=== PATIENT | female | born 1960 | race Caucasian/White ===

== ENCOUNTER → 2018-08-31 10:17 | Outpatient (CLI) | payer OTHER, SELFPAY ==
[2018-08-31 12:30] LABS: Vitamin D,25 Hydroxy 27.9 ng/mL (29.95-100.01)
[2018-08-31 12:37] LABS: Anion Gap 8 (5-15); BUN 11 mg/dL (7-18); BUN/Creat Ratio 12.4 RATIO (10-20); Calcium,Total 9.3 mg/dL (8.5-10.1); Chloride 109 mmol/L (98-107); Cholesterol 201 mg/dL (200); Creatinine, Serum 0.89 mg/dL (0.55-1.02); EST Glomerular Filtration Rate 70 mL/min (>60); Est Glom Filt Rate - Afr Amer 84 mL/min (>60); Glucose 97 mg/dL (74-106); High Density Lipoprotein 52 mg/dL; Potassium 3.9 mmol/L (3.5-5.1); Sodium Level 145 mmol/L (136-145); Triglycerides 175 mg/dL; Very Low Density Lipoprotein 35 mg/dL (5-40)
--- OUTSIDE RECORDS SUMMARY | 2018-10-26 12:07 | XMS RPT_ITS ---
:1960 Author Organization OHIP Care Team Providers Name Role Phone Kevin Vo Attending Unavailable Kevin Vo Primary Care Unavailable PROBLEMS PROBLEMS DATE TYPE CONDITION / CODE ATTENDING STATUS SOURCE 08/31/2018 Unknown Z00.00 - Kevin Vo Active [place] Encounter for [facility] medical Repository examination without abnormal findings / Z00.00(ICD-10) PROCEDURES PROCEDURES No Procedure Records FoundRESULTS RESULTS VITAMIN D,25 HYDROXY Collected: 08/31/2018 Status: F Source: [place] 10:18 AM [facility] REPOSITORY TYPE CODE TESTS RESULT OUT OF REFERENCE UNITS RANGE LAB L506.1000 29.95-100.01 ng/mL Low Vitamin D 27.9 25-OH Result Comment: Vitamin D 25(OH) Status Range Deficiency <20 ng/mL (50nmol/L) Insuffciency 20 - 30 ng/mL (50 - 75 nmol/L) Sufficiency 30 - 100 ng/mL (75 - 250 nmol/L) Toxicity >100 ng/mL (>250 nmol/L) Performed By: #### L506.1000 #### [facility] [place], [address] BASIC METABOLIC Collected: 08/31/2018 Status: F Source: [place] PROFILE (BMP) 10:18 AM [facility] REPOSITORY TYPE CODE TESTS RESULT OUT OF RANGE REFERENCE UNITS LAB L501.0100 74-106 mg/dL Normal GLU 97 Result Comment: Please note revised GLUCOSE reference range effective 2017. LAB L501.1000 7-18 mg/dL Normal BUN 11 LAB L501.1100 0.55-1.02 mg/dL Normal CREAT,SERUM 0.89 Result Comment: The validity of the calculated GFR AND GFRAA in patients over 70 years has not been determined. Clinical correlation is essential. LAB L501.1110 >60 mL/min Normal EST GFR 70 Result Comment: Non- GFR Calc LAB L501.1115 >60 mL/min Normal EST GFR - AA 84 Result Comment: GFR Calc LAB L501.1300 10-20 RATIO Normal BUN/CRE 12.4 LAB L501.2200 8.5-10.1 mg/dL CA Normal 9.3 LAB L501.5300 136-145 mmol/L NA Normal 145 LAB L501.5600 3.5-5.1 mmol/L K Normal 3.9 LAB L501.5900 98-107 mmol/L High CL 109 LAB L501.6100 21.0-32.0 mmol/L Normal CO2 28.0 LAB L501.6200 5-15 Normal GAP 8 Performed By: #### L500.2500, L500.4100 #### [facility] [address], [address] LIPID PROFILE Collected: 08/31/2018 Status: F Source: [place] 10:18 AM [facility] REPOSITORY TYPE CODE TESTS RESULT OUT OF RANGE REFERENCE UNITS LAB L501.4900 200 mg/dL High CHOL 201 Result Comment: <200 mg/dL Desirable 200-240 mg/dL Borderline >240 mg/dL High Risk LAB L501.5000 mg/dL Normal TRIG 175 Result Comment: The drugs N-Acetylcysteine and Metamizole may falsely depress this assay. Serum Triglycerides Reference Interval Normal <150 mg/dL Borderline high 150 - 199 mg/dL High 200 - 499 mg/dL Very High > or = 500 mg/dL LAB L501.6400 mg/dL Normal HDL 52 Result Comment: The drugs N-Acetylcysteine and Metamizole may falsely depress this assay. Reference Range HDL <40 mg/dL Low HDL Cholesterol HDL >or= 60 mg/dL High HDL Cholesterol LAB L501.6500 0-130 mg/dL Normal LDL 114 LAB L501.6600 5-40 mg/dL Normal VLDL 35 Performed By: #### L500.2500, L500.4100 #### [facility] [address] [place], [address] ALLERGIES ALLERGIES No Allergies Records FoundENCOUNTERS ENCOUNTERS ADMIT/DISCHARGE ACCOUNT ADMITTING ENCOUNTER LOCATION SOURCE NUMBER CLASS 08/31/2018 [id number] Ambulatory [address] ing:MFPLAB Repository PAYERS PAYERS ENCOUNTER GUARANTOR PAYER SUBSCRIBER SOURCE 08/31/2018 Jeffrey Gomes2652 Primary Jeffrey MarkOB: [place] Jiménez Insurance:[id number] [address] [address]Pnr: (330) Number: Repository [id number] (HG) [id number] Date:[id number] [id number], [place] [address]YQ: 08/31/2018 Secondary NOT GIVENORIANA Alexander Insurance:SELF PAY [facility] Number: Effective Repository Date:2018-08-31
== END ==
PROVIDERS: Family Provider Family Medicine; PCP Family Medicine; Visit Provider Family Medicine
DX: Z00.00 Encounter for general adult medical examination without abnormal findings (principal)
CPT/HCPCS: 36415; 80048; 80061; 82306

== ENCOUNTER → 2018-11-07 15:14 | Outpatient (CLI) | payer OTHER, SELFPAY ==
--- NOTE | 2018-11-07 15:18 | BI_ITS ---
MAMMOGRAPHY - BILATERAL SCREENING REASON FOR EXAM: Female, 58 years old. Routine annual screening examination. PERTINENT HISTORY: Non-contributory. TECHNIQUE: Digital bilateral breast jack (3D mammographic acquisition) in the CC and MLO projections. 2-D mediolateral oblique (MLO) and craniocaudad (CC) views of both breasts were obtained. CAD: Full Field Digital Mammography with Computer Added Detection was performed. COMPARISON: Comparison is made with prior study of May 17, 2017 and September 21, 2013. FINDINGS: Breast Composition: The breasts are heterogeneously dense, which may obscure small masses. There are no dominant masses or suspicious calcifications. No other significant abnormalities are identified. There has been no significant change since the prior study. BI/SCREENING MAMM (CAD), BILAT IMPRESSION: Stable bilateral screening mammogram. Yearly follow-up mammogram recommended. (A) ASSESSMENT CATEGORY: BIRADS Category 1: Negative. A letter regarding these results will be sent to the patient by the facility within 30 days. Approximately 10% of breast cancers are not detected by mammography. A normal mammogram should not delay biopsy of a clinically suspicious abnormality. [id number] Electronically Signed: Raoul Garcia MD at 8:48 EST , Service support ,
--- NOTE | 2018-11-07 15:27 | BD_ITS ---
STUDY: DUAL ENERGY X-RAY ABSORPTIOMETRY / DXA REASON FOR EXAM: Female, 58 years old. The patient is postmenopausal. Loss of height. TECHNIQUE: Bone Mineral Density (BMD) measurements of lumbar spine and bilateral hips were obtained. COMPARISON: None. FINDINGS: Lumbar Spine (L1-L4): g/cm2 (1.300) / T-score (1.1) / Z-score (2.0) Findings are suggestive of normal bone density with a low fracture risk. Left Femur Total: g/cm2 (1.073) / T-score (0.5) / Z-score (1.2) Left Femoral Neck: g/cm2 (0.946) / T-score (-0.7) / Z-score (0.4) Right Femur Total: g/cm2 (1.043) / T-score (0.3) / Z-score (1.0) Right Femoral Neck: g/cm2 (0.869) / T-score (-1.2) / Z-score (-0.2) BD/Dexa Bone Density Study IMPRESSION: The patient is considered osteopenic as outlined below according to World Con Organization (WHO) criteria with a low fracture risk. Reference Information: The T-score is the number of standard deviations above or below the standard which is normal for young adults at their peak bone mineral density. The World Health Organization (WHO) interprets the T-scores as follows: Above -1 Normal bone density Between -1 and -2.5 Osteopenia Equal to / or below -2.5 Osteoporosis As a practical clinical guideline, osteopenia may be graded as follows: Mild -1 through -1.5 Moderate -1.6 through -2.0 Severe -2.1 through -2.4 The Z-score is the number of standard deviations above or below age-matched controls. A Z-score of less than -1.5 would be considered abnormal. References: 1. NIH Osteoporosis and Related Bone Diseases http://www.osteo.org 2. International Society for Clinical Densitometry http://www.iscd.org 3. National Osteoporosis Foundation http://www.nof.org Electronically Signed: Raoul Garcia MD at 15:32 EST , Service support ,
== END ==
PROVIDERS: Family Provider Family Medicine; PCP Family Medicine; Referring Provider Family Medicine; Visit Provider Family Medicine
DX: Z00.00 Encounter for general adult medical examination without abnormal findings (principal); Z12.31 Encounter for screening mammogram for malignant neoplasm of breast
CPT/HCPCS: 77063; 77067; 77080

== ENCOUNTER → 2019-09-14 09:06 | Outpatient (CLI) | payer OTHER, SELFPAY ==
[2019-09-14 12:45] LABS: Vitamin D,25 Hydroxy 35.4 ng/mL (29.95-100.01)
[2019-09-14 12:58] LABS: Anion Gap 5 (5-15); BUN 11 mg/dL (7-18); BUN/Creat Ratio 11.8 RATIO (10-20); Calcium,Total 9.6 mg/dL (8.5-10.1); Chloride 107 mmol/L (98-107); Cholesterol 174 mg/dL (200); Creatinine, Serum 0.93 mg/dL (0.55-1.02); EST Glomerular Filtration Rate 66 mL/min (>60); Est Glom Filt Rate - Afr Amer 80 mL/min (>60); Glucose 62 mg/dL (74-106); High Density Lipoprotein 59 mg/dL; Potassium 3.4 mmol/L (3.5-5.1); Sodium Level 141 mmol/L (136-145); Triglycerides 95 mg/dL; Very Low Density Lipoprotein 19 mg/dL (5-40)
== END ==
PROVIDERS: Family Provider Family Medicine; PCP Family Medicine; Referring Provider Family Medicine; Visit Provider Family Medicine
DX: Z00.00 Encounter for general adult medical examination without abnormal findings (principal)
CPT/HCPCS: 36415; 80048; 80061; 82306

== ENCOUNTER → 2020-09-17 09:10 | Outpatient (CLI) | payer OTHER, SELFPAY ==
[2020-09-17 10:50] LABS: Anion Gap 4 (5-15); BUN 13 mg/dL (7-18); BUN/Creat Ratio 14.8 RATIO (10-20); Calcium,Total 9.7 mg/dL (8.5-10.1); Chloride 109 mmol/L (98-107); Cholesterol 195 mg/dL (200); Creatinine, Serum 0.88 mg/dL (0.55-1.02); EST Glomerular Filtration Rate 70 mL/min (>60); Est Glom Filt Rate - Afr Amer 85 mL/min (>60); Glucose 93 mg/dL (74-106); High Density Lipoprotein 66 mg/dL; Potassium 3.7 mmol/L (3.5-5.1); Sodium Level 142 mmol/L (136-145); Triglycerides 86 mg/dL; Very Low Density Lipoprotein 17 mg/dL (5-40)
[2020-09-17 10:51] LABS: Vitamin D,25 Hydroxy 31.4 ng/mL
== END ==
PROVIDERS: PCP Family Medicine; Referring Provider Family Medicine; Visit Provider Family Medicine
DX: Z00.00 Encounter for general adult medical examination without abnormal findings (principal)
CPT/HCPCS: 36415; 80048; 80061; 82306

== ENCOUNTER → 2021-04-02 16:32 | Outpatient (CLI) | payer OTHER, SELFPAY | PROVIDERS: PCP Family Medicine; Visit Provider Family Medicine | DX: R35.1 Nocturia (principal) | CPT/HCPCS: 87086; 87088 ==

== ENCOUNTER → 2022-12-17 | Outpatient (CLI) | payer OTHER, SELFPAY ==
[2022-12-17 10:35] LABS: Vitamin D,25 Hydroxy 26.6 ng/mL
[2022-12-17 10:44] LABS: Anion Gap 9 (5-15); BUN 12 mg/dL (7-18); BUN/Creat Ratio 13.7 RATIO (10-20); Calcium,Total 9.7 mg/dL (8.5-10.1); Chloride 108 mmol/L (98-107); Cholesterol 220 mg/dL (200); Creatinine, Serum 0.88 mg/dL (0.55-1.02); EST Glomerular Filtration Rate 70 mL/min (>60); Est Glom Filt Rate - Afr Amer 85 mL/min (>60); Glucose 100 mg/dL (74-106); High Density Lipoprotein 59 mg/dL; Sodium Level 142 mmol/L (136-145); Triglycerides 72 mg/dL; Very Low Density Lipoprotein 14 mg/dL (5-40)
== END | disposition home or self-care (01) ==
LOC: MFPLAB 09:04
PROVIDERS: PCP Family Medicine; Referring Provider Family Medicine; Visit Provider Family Medicine
DX: Z00.00 Encounter for general adult medical examination without abnormal findings (principal); J02.9 Acute pharyngitis, unspecified
CPT/HCPCS: 36415; 80048; 80061; 82306; 87070

== ENCOUNTER → 2023-09-19 | Outpatient (CLI) | payer OTHER, SELFPAY ==
--- NOTE | 2023-09-19 07:20 | BI_ITS ---
MAMMOGRAPHY - BILATERAL SCREENING REASON FOR EXAM: Female, 62 years old. Routine annual screening examination. PERTINENT HISTORY: Non-contributory. TECHNIQUE: Digital bilateral breast cody (3D mammographic acquisition) in the CC and MLO projections. 2-D mediolateral oblique (MLO) and craniocaudad (CC) views of both breasts were obtained. CAD: Full Field Digital Mammography with Computer Added Detection was performed. COMPARISON: Comparison is made with prior study November 07, 2018 and May 17, 2017. FINDINGS: Breast Composition: The breasts are heterogeneously dense, which may obscure small masses. There are no dominant masses or suspicious calcifications. No other significant abnormalities are identified. There has been no significant change since the prior study. BI/SCRN MAMM (CAD)W/CODY BILAT IMPRESSION: Stable bilateral screening mammogram. Yearly follow-up mammogram recommended. (A) ASSESSMENT CATEGORY: BIRADS Category 1: Negative. A letter regarding these results will be sent to the patient by the facility within 30 days. Approximately 10% of breast cancers are not detected by mammography. A normal mammogram should not delay biopsy of a clinically suspicious abnormality. [id number] Electronically Signed: Raoul Garcia MD at 8:42 EST ,
[2023-09-19 11:27] LABS: Anion Gap 6 (5-15); BUN 14 mg/dL (7-18); BUN/Creat Ratio 15.5 RATIO (10-20); Chloride 110 mmol/L (98-107); Cholesterol 128 mg/dL (200); EST Glomerular Filtration Rate 68 mL/min (>60); Est Glom Filt Rate - Afr Amer 82 mL/min (>60); Glucose 95 mg/dL (74-106); High Density Lipoprotein 67 mg/dL; Potassium 3.6 mmol/L (3.5-5.1); Sodium Level 143 mmol/L (136-145); Triglycerides 70 mg/dL; Very Low Density Lipoprotein 14 mg/dL (5-40)
== END | disposition home or self-care (01) ==
PROVIDERS: PCP Family Medicine; Referring Provider Family Medicine; Visit Provider Family Medicine
DX: Z00.00 Encounter for general adult medical examination without abnormal findings (principal); Z12.31 Encounter for screening mammogram for malignant neoplasm of breast
CPT/HCPCS: 36415; 77063; 77067; 80048; 80061

== ENCOUNTER → 2024-06-27 | Outpatient (CLI) | payer OTHER, SELFPAY ==
[2024-06-27 17:27] LABS: Absolute Lymphocyte Count 1.52 X10^3/uL (0.83-4.51); Absolute Neutrophil Count 2.9 X10^3/uL (2.0-7.7); Basophil# 0.02 X10^3/uL; Basophil% 0.4 % (0-1); Eosinophil# 0.16 X10^3/uL; Eosinophils% 3.2 % (0-5); Hematocrit 38.2 % (37-47); Hemoglobin 13.2 g/dL (12.0-15.0); Lymphocyte # 1.52 X10^3/ul (0.83-4.51); Lymphocyte % 30.3 % (19-41); Mean Corp Hgb Conc 34.6 g/dL (32-36); Mean Corpuscular Hgb 32.2 pg (27.0-32.0); Mean Corpuscular Volume 93.2 fL (81-99); Mean Platelet Vol. 9.3 fl (6.2-12.0); Monocyte# 0.37 X10^3/uL; Monocyte% 7.4 % (0-10); NRBC Flagged by Analyzer 0 % (0-5); Neutrophil # 2.94 X10^3/uL (2.7-7.7); Neutrophil % 58.5 % (47-70); Platelet Count 205 K/mm3 (150-450); RBC Distribution Width CV 12.1 % (11.6-14.6); RBC Distribution Width SD 41.7 fl (35.1-43.9)
[2024-06-27 17:40] LABS: Anion Gap 4 (5-15); BUN 11 mg/dL (7-18); BUN/Creat Ratio 12.8 RATIO (10-20); Calcium,Total 9.6 mg/dL (8.5-10.1); Chloride 109 mmol/L (98-107); Creatinine, Serum 0.86 mg/dL (0.55-1.02); EST Glomerular Filtration Rate 71 mL/min (>60); Est Glom Filt Rate - Afr Amer 86 mL/min (>60); Glucose 99 mg/dL (74-106); Potassium 3.8 mmol/L (3.5-5.1); Sodium Level 142 mmol/L (136-145)
== END | disposition home or self-care (01) ==
LOC: MFPLAB 15:32
PROVIDERS: PCP Family Medicine; Visit Provider Family Medicine
DX: M25.519 Pain in unspecified shoulder (principal)
CPT/HCPCS: 36415; 80048; 85025

== ENCOUNTER → 2024-09-06 | Outpatient (CLI) | payer OTHER, SELFPAY ==
[2024-09-06 10:49] LABS: Anion Gap 6 (5-15); BUN 13 mg/dL (7-18); BUN/Creat Ratio 14.9 RATIO (10-20); Calcium,Total 9.3 mg/dL (8.5-10.1); Chloride 109 mmol/L (98-107); Cholesterol 134 mg/dL (200); Creatinine, Serum 0.87 mg/dL (0.55-1.02); EST Glomerular Filtration Rate 70 mL/min (>60); Est Glom Filt Rate - Afr Amer 85 mL/min (>60); Glucose 92 mg/dL (74-106); High Density Lipoprotein 70 mg/dL; Potassium 3.1 mmol/L (3.5-5.1); Sodium Level 142 mmol/L (136-145); Triglycerides 84 mg/dL; Very Low Density Lipoprotein 17 mg/dL (5-40)
== END | disposition home or self-care (01) ==
PROVIDERS: PCP Family Medicine; Referring Provider Family Medicine; Visit Provider Family Medicine
DX: Z00.00 Encounter for general adult medical examination without abnormal findings (principal)
CPT/HCPCS: 36415; 80048; 80061

== ENCOUNTER → 2024-09-21 | Outpatient (CLI) | payer OTHER, SELFPAY ==
[2024-09-21 11:04] LABS: Anion Gap 7 (5-15); BUN 15 mg/dL (7-18); BUN/Creat Ratio 15.9 RATIO (10-20); Calcium,Total 9.5 mg/dL (8.5-10.1); Chloride 108 mmol/L (98-107); Creatinine, Serum 0.94 mg/dL (0.55-1.02); EST Glomerular Filtration Rate 64 mL/min (>60); Est Glom Filt Rate - Afr Amer 78 mL/min (>60); Glucose 69 mg/dL (74-106); Potassium 3.4 mmol/L (3.5-5.1); Sodium Level 141 mmol/L (136-145)
== END | disposition home or self-care (01) ==
LOC: MTLAB 07:04
PROVIDERS: PCP Family Medicine; Referring Provider Family Medicine; Visit Provider Family Medicine
DX: E87.6 Hypokalemia (principal)
CPT/HCPCS: 36415; 80048

== ENCOUNTER → 2024-10-11 | Outpatient (CLI) | payer OTHER, SELFPAY ==
[2024-10-11 11:01] LABS: Anion Gap 5 (5-15); BUN 15 mg/dL (7-18); BUN/Creat Ratio 17.7 RATIO (10-20); Calcium,Total 9.3 mg/dL (8.5-10.1); Chloride 108 mmol/L (98-107); Creatinine, Serum 0.85 mg/dL (0.55-1.02); EST Glomerular Filtration Rate 72 mL/min (>60); Est Glom Filt Rate - Afr Amer 87 mL/min (>60); Glucose 93 mg/dL (74-106); Potassium 3.4 mmol/L (3.5-5.1); Sodium Level 140 mmol/L (136-145)
== END | disposition home or self-care (01) ==
LOC: MTLAB 07:05
PROVIDERS: PCP Family Medicine; Referring Provider Family Medicine; Visit Provider Family Medicine
DX: E87.6 Hypokalemia (principal)
CPT/HCPCS: 36415; 80048

== ENCOUNTER → 2024-11-13 | Outpatient (CLI) | payer OTHER, SELFPAY ==
[2024-11-13 12:42] LABS: Absolute Lymphocyte Count 1.31 X10^3/uL (0.83-4.51); Absolute Neutrophil Count 6.2 X10^3/uL (2.0-7.7); Basophil# 0.03 X10^3/uL; Basophil% 0.4 % (0-1); Eosinophil# 0.14 X10^3/uL; Eosinophils% 1.7 % (0-5); Hematocrit 35.4 % (37-47); Hemoglobin 10.9 g/dL (12.0-15.0); Lymphocyte # 1.31 X10^3/ul (0.83-4.51); Lymphocyte % 16.1 % (19-41); Mean Corp Hgb Conc 30.8 g/dL (32-36); Mean Corpuscular Volume 97.5 fL (81-99); Mean Platelet Vol. 8.4 fl (6.2-12.0); Monocyte# 0.44 X10^3/uL; Monocyte% 5.4 % (0-10); NRBC Flagged by Analyzer 0 % (0-5); Neutrophil # 6.18 X10^3/uL (2.7-7.7); Neutrophil % 75.7 % (47-70); Platelet Count 606 K/mm3 (150-450); RBC Distribution Width CV 13.4 % (11.6-14.6); RBC Distribution Width SD 48.4 fl (35.1-43.9); Red Blood Count 3.63 M/mm3 (4.2-5.4); White Blood Count 8.2 K/mm3 (4.4-11.0)
[2024-11-13 13:00] LABS: Erythrocyte Sedimentation Rate 25 mm/hr (0-30)
== END | disposition home or self-care (01) ==
LOC: LAB 11:30
PROVIDERS: PCP Family Medicine; Referring Provider Student in an Organized Health Care Education/Training Program; Visit Provider Student in an Organized Health Care Education/Training Program
DX: S46.011D Strain of muscle(s) and tendon(s) of the rotator cuff of right shoulder, subsequent encounter (principal); S43.431D Superior glenoid labrum lesion of right shoulder, subsequent encounter; X58.XXXD Exposure to other specified factors, subsequent encounter
CPT/HCPCS: 36415; 85025; 85652; 86140; 87070; 87075; 87077; 87186; 87205

== ENCOUNTER 2024-11-14 19:32 | Inpatient (IN) | payer OTHER, SELFPAY ==
--- NOTE | 2024-11-14 20:04 | PCM.HP.STD ---
HPI - General General Date of Admission: 11/14/24 Chief Complaint: Right shoulder pain HPI Narrative JEFFREY GOULD, is a 64 F who presented approximately 4 months s/p right shoulder rotator cuff repair and biceps tenodesis after injury 2 weeks ago. Concern was retear was noted and MRI obtained. MRI demonstrated retear and complex effusion. Patient notes low grade fever for 10 days or so. Was put on Z pack by PCP despite no respiratory symptoms. She continued with low grade fever. 4 days ago, patient noted redness and increase in swelling along her lateral shoulder. I saw patient in office yesterday and performed a subacromial aspiration. Turbid fluid was obtained and sent for Gs/Cx. Cx prelim was s. aureus. Patient was direct admistted tonight for IV abx with plan for I&D, removal of hardware right shoulder tomorrow. Denies N/V/SOB/CP. 12 pt ROS obtained, negative unless otherwise noted above. She has profound weakness and pain with attempted overhead motion. [facility] Home Medications ?Medication ?Instructions ?Recorded ?Last Taken ?Type cyclobenzaprine 5 mg tablet 5 mg PO QHS 11/14/24 Unknown History doxycycline hyclate 100 mg tablet 100 mg PO BID 11/14/24 Unknown History gabapentin 300 mg capsule 300 mg PO BID 11/14/24 Unknown History oxaprozin 600 mg tablet 1,200 mg PO DAILY 11/14/24 Unknown History rosuvastatin 5 mg tablet 5 mg PO DAILY 11/14/24 Unknown History Allergy/AdvReac Type Severity Reaction Status Date / Time tramadol Allergy Swelling Verified 11/14/24 20:00 Physical Exam Const alert, oriented x3 and no apparent distress General Appearance: cooperative HEENT normocephalic and head/scalp atraumatic Eyes PERRL Neck no lymphadenopathy Resp normal respiratory effort and normal air movement Cardio regular rate and regular rhythm GI soft to palpation, non-tender and non-distended Extremity normal capillary refill, no clubbing, cyanosis or edema and no calf tenderness Skin Skin Narrative: Lateral right shoulder erythema, fluctuance Neuro CN's II-XII intact bilaterally Results Lab / Micro Data Attestation: I reviewed the patient's lab results. Assessment & Plan Assessment/Plan (1) Septic arthritis of shoulder, right: QUALIFIERS: Septic arthritis organism: staphylococcal Qualified Code(s): M00.011 - Staphylococcal arthritis, right shoulder PLAN: - IV ancef scheduled - Follow prelim cx - Sx tomorrow for I&D, Removal of hardware. Reviewed R/B/A with patient. Informed consent obtained - ID consult - possible PICC - NPO after midnight - mIVF - DVT ppx - SCDs, TEDS
[2024-11-14 20:06] VITALS: BP 115/73; PULSE 103; RESP 18; TEMP 36.6; O2SAT 97
[2024-11-14 20:07] VITALS: BMI 26.2
[2024-11-14 20:08] VITALS: BMI 26.2
[2024-11-14] MEDS: Gabapentin 300 MG Capsule PO (21:02)
[2024-11-14] MEDS: Ibuprofen 600 MG Tablet PO (21:02)
[2024-11-14] MEDS: Lactated Ringers 1,000 ML 50 ML IV (21:02)
[2024-11-14] MEDS: Cefazolin 2 GM in Syringe IV (21:02)
[2024-11-14] MEDS: Atorvastatin Calcium 10 MG Tablet PO (21:03)
[2024-11-14] MEDS: cycloBENZAPRine HCl 5 MG TABLET PO (21:03)
[2024-11-14] MEDS: 0.9% Saline Lock 10 ML Syringe IV (21:07)
[2024-11-15] VITALS (14 sets, daily range): BP systolic 104–124; BP diastolic 56–91; PULSE 68–95; RESP 14–20; TEMP 36.6–37.2; O2SAT 94–98; BMI 26.2
[2024-11-15] MEDS: Cefazolin 2 GM in Syringe IV ×3 (05:21→22:37)
[2024-11-15] MEDS: Ibuprofen 600 MG Tablet PO ×2 (05:21→22:46)
[2024-11-15 05:23] LABS: Absolute Lymphocyte Count 1.24 X10^3/uL (0.83-4.51); Absolute Neutrophil Count 3.1 X10^3/uL (2.0-7.7); Basophil# 0.02 X10^3/uL; Basophil% 0.4 % (0-1); Eosinophil# 0.17 X10^3/uL; Eosinophils% 3.5 % (0-5); Hematocrit 29.3 % (37-47); Hemoglobin 9.5 g/dL (12.0-15.0); Lymphocyte # 1.24 X10^3/ul (0.83-4.51); Lymphocyte % 25.2 % (19-41); Mean Corp Hgb Conc 32.4 g/dL (32-36); Mean Corpuscular Volume 95.8 fL (81-99); Mean Platelet Vol. 8.4 fl (6.2-12.0); Monocyte# 0.38 X10^3/uL; Monocyte% 7.7 % (0-10); NRBC Flagged by Analyzer 0 % (0-5); Platelet Count 466 K/mm3 (150-450); RBC Distribution Width CV 13.2 % (11.6-14.6); RBC Distribution Width SD 47.4 fl (35.1-43.9); Red Blood Count 3.06 M/mm3 (4.2-5.4); White Blood Count 4.9 K/mm3 (4.4-11.0)
[2024-11-15 05:52] LABS: ALB/GLOB Ratio 0.6 RATIO (0.9-2.4); AST(SGOT) 18 U/L (15-37); Alanine Aminotransfer ALT/SGPT 14 U/L (13-56); Albumin, Serum 2.2 g/dL (3.2-5.0); Alkaline Phosphatase 96 U/L (45-117); Anion Gap 6 (5-15); BUN 12 mg/dL (7-18); BUN/Creat Ratio 17.5 RATIO (10-20); Calcium,Total 8.8 mg/dL (8.5-10.1); Chloride 110 mmol/L (98-107); Creatinine, Serum 0.69 mg/dL (0.55-1.02); EST Glomerular Filtration Rate 92 mL/min (>60); Est Glom Filt Rate - Afr Amer 111 mL/min (>60); Estimated Creatinine Clearance 80.79 ml/min; Globulin 3.7 g/dL (2.2-4.2); Glucose 100 mg/dL (74-106); Potassium 3.6 mmol/L (3.5-5.1); Protein, Total 5.9 g/dL (6.4-8.2); Sodium Level 142 mmol/L (136-145)
--- NOTE | 2024-11-15 10:04 | EKG12_ITS ---
Test Reason : PRE OP Blood Pressure : */* mmHG Vent. Rate : 82 BPM Atrial Rate : 82 BPM P-R Int : 132 ms QRS Dur : 96 ms QT Int : 394 ms P-R-T Axes : 33 5 -6 degrees QTcB Int : 460 ms Normal sinus rhythm Low voltage QRS Incomplete right bundle branch block Nonspecific T wave abnormality Abnormal ECG No previous ECGs available Confirmed by SHANELLE GABRIEL, GUANACO ([id number]), marketing editor MARC GILLIAM ([id number]) on 11/16/2024 1:08:32 PM Referred By: Moe Perry Confirmed By: GUANACO TIMMONS MD
--- NOTE | 2024-11-15 10:25 | PCM.CONS.GEN ---
Assessment & Plan Assessment/Plan (1) Septic arthritis of shoulder, right: QUALIFIERS: Septic arthritis organism: staphylococcal Qualified Code(s): M00.011 - Staphylococcal arthritis, right shoulder PLAN: Aspiration with staph aureus. Will check bcx x2, add vanc. Cont ceftriaxone. Surgery planned. Will follow, thank you HPI Consult Data Date of Consult: 11/15/24 HPI Narrative Reason for Consultation: septic arthritis HPI Narrative: JEFFREY GOULD, is a 64 F who had R shoulder rotator cuff repair with biceps tenodesis in 07/2024. Did well postop until 2-3 weeks ago. Lifted a heavy grocery bag, and next day had progressive R shoulder pain, fever, chills. Saw PCP, given azithro with no improvement. Tmax 100.8. Over past 5 days, new redness, swelling, warmth in R shoulder. Saw Dr. Peryr, aspiration done, admitted on cefazolin. Full ROS performed and neg except as noted above. PFSH Medical History Rotator cuff tear Spinal cord tumor High cholesterol Anemia Former smoker Home Medications ?Medication ?Instructions ?Recorded ?Last Taken ?Type cyclobenzaprine 5 mg tablet 5 mg PO QHS 11/14/24 Unknown History doxycycline hyclate 100 mg tablet 100 mg PO BID 11/14/24 Unknown History gabapentin 300 mg capsule 300 mg PO BID 11/14/24 Unknown History oxaprozin 600 mg tablet 1,200 mg PO DAILY 11/14/24 Unknown History rosuvastatin 5 mg tablet 5 mg PO DAILY 11/14/24 Unknown History Allergy/AdvReac Type Severity Reaction Status Date / Time tramadol Allergy Swelling Verified 11/14/24 20:00 Surgical History (Updated 11/14/24 @ 20:22 by Leilani Bryant) Tubal ligation status H/O hernia repair S/P hysterectomy Social History Smoking Status: Former smoker Physical Exam Const alert, oriented x3 and no apparent distress General Appearance: cooperative HEENT normocephalic and head/scalp atraumatic Eyes PERRL and EOMs intact bilaterally Neck supple and No nodes Resp normal air movement and clear to auscultation bilaterally Cardio regular rate, regular rhythm and no murmurs GI soft to palpation, non-tender and non-distended Extremity Extremity Narrative: R shoulder limited ROM due to pain Skin Skin Narrative: R shoulder focal swelling, redness, tenderness. No splinter hemorrhages on fingers Neuro CN's II-XII intact bilaterally Lab / Micro Data Attestation: I reviewed the patient's lab results. 11/15/24 05:07 11/15/24 05:07 Labs: Laboratory Results - last 24 hr 11/15/24 05:07: WBC 4.9, RBC 3.06 L, Hgb 9.5 L, Hct 29.3 L, MCV 95.8, MCH 31.0, MCHC 32.4 D, RDW Std Deviation 47.4 H, RDW Coeff of Shanae 13.2, Plt Count 466 H, MPV 8.4, Immature Gran % (Auto) 0.200, Neut % (Auto) 63.0, Lymph % (Auto) 25.2, [place] % (Auto) 7.7, Eos % (Auto) 3.5, Baso % (Auto) 0.4, Absolute Neuts (auto) 3.1, Absolute Lymphs (auto) 1.24, Nucleated RBC % 0, Sodium 142, Potassium 3.6, Chloride 110 H, Carbon Dioxide 26.0, Anion Gap 6, BUN 12, Creatinine 0.69, Estim Creat Clear Calc 80.79, Est GFR (MDRD) Af Amer 111, Est GFR (MDRD) Non-Af 92, BUN/Creatinine Ratio 17.5, Glucose 100, Calcium 8.8, Total Bilirubin 0.30, AST 18, ALT 14, Alkaline Phosphatase 96, Total Protein 5.9 L, Albumin 2.2 L, Globulin 3.7, Albumin/Globulin Ratio 0.6 L
[2024-11-15] MEDS: Gabapentin 300 MG Capsule PO ×2 (10:30→22:49)
[2024-11-15] MEDS: Vancomycin HCl 1,750 MG in 0.9% Normal Saline (500mL Bag) 500 ML 250 MG IV (11:31)
--- NOTE | 2024-11-15 12:44 | PCM.RX.CS ---
Consult Antibiotic Management Pharmacy has been consulted to manage selected antibiotic: Vancomycin Type of Intervention Type of Consult: New start Suspected Infection Suspected Infection: Other (septic shoulder) Labs Labs: Sodium 142 mmol/L (136-145) 11/15/24 05:07 Potassium 3.6 mmol/L (3.5-5.1) 11/15/24 05:07 Chloride 110 mmol/L (98-107) H 11/15/24 05:07 Carbon Dioxide 26.0 mmol/L (21.0-32.0) 11/15/24 05:07 Anion Gap 6 (5-15) 11/15/24 05:07 BUN 12 mg/dL (7-18) 11/15/24 05:07 Creatinine 0.69 mg/dL (0.55-1.02) 11/15/24 05:07 Est GFR (MDRD) Af Amer 111 mL/min (>60) 11/15/24 05:07 Est GFR (MDRD) Non-Af 92 mL/min (>60) 11/15/24 05:07 BUN/Creatinine Ratio 17.5 RATIO (10-20) 11/15/24 05:07 Glucose 100 mg/dL (74-106) 11/15/24 05:07 Dosing Weight Weight used for dosin kg Estimated Creatinine Clearance Estimated Creatinine Clearance: 81ml/min Goal Trough Goal Trough: 15-20 mcg/mL Pharmacy Plan for Drug Dosing Pharmacy Plan for Drug Dosing: NEW IV VANCOMYCIN Consulting Physician: Dr. Armenta Indication: Septic shoulder Goal Trough: 15-20 SrCr: 0.69 CrCl: 81ml/min Comments: pt received a 1750mg (25mg/kg) loading dose on 11/15/24 at 1130 Vancomycin Dose: based on patients weight and renal function, recommend an initial dose of 1000mg q12h starting 11/15/24 at 2300. trough prior to the 4th total dose Note: dose calculated using Clinical Pharmacology dosing calculator Pending Level: 11/16/24 at 2230 Pharmacy Service will continue to monitor and adjust dosing as required. Follow-Up Labs Follow-Up Labs: Trough: Vancomycin (11/16/24 @ 2230)
[2024-11-15] MEDS: 0.9% Saline Lock 10 ML Syringe IV (13:13)
[2024-11-15] MEDS: 0.9% Normal Saline (1000mL) 1,000 ML 15 ML IV (14:44)
--- NOTE | 2024-11-15 15:11 | PCM.PRE.AN2 ---
ASA Classification* ASA Classification ASA Classification: 3 Assessment & Plan Anesthesia* Anesthesia Assessment Anesthesia Assessment: Discussed sedation and/or anesthesia options, risks, benefits, and alternatives with patient/parents/legal guardian/POA. Questions invited. The patient/parents/legal guardian/POA seems to understand and agrees to proceed with anesthesia plan. Reviewed the physical assessment, medical history, allergy history and patient home medications list prior to surgery/procedure/anesthetic and documented any changes. Performed airway and anesthesia risk assessments. Anesthesia Type Anesthesia Type: General History Source History Obtained from:: Patient and Chart Anesthesia Focused Assessment* Temperature: 98.1 F Pulse Rate: 68 Blood Pressure: 113/69 Respiratory Rate: 16 Pulse Ox: 95 Oxygen Delivery Method: Room Air Airway Assessment Mouth opens: >3 cm Mallampati Score: II Teeth Condition: Caps/Crowns (Patient has a couple of caps. They are tight.) Neck Range of motion (ROM): Full ROM Focused Labs Anesthesia Preop lab: CBC WBC 4.9 K/mm3 (4.4-11.0) 11/15/24 05:07 11/15/24 RBC 3.06 M/mm3 (4.2-5.4) L 11/15/24 05:07 11/15/24 Hgb 9.5 g/dL (12.0-15.0) L 11/15/24 05:07 11/15/24 Hct 29.3 % (37-47) L 11/15/24 05:07 11/15/24 Plt Count 466 K/mm3 (150-450) H 11/15/24 05:07 11/15/24 CHEMISTRY Potassium 3.6 mmol/L (3.5-5.1) 11/15/24 05:07 11/15/24 Sodium 142 mmol/L (136-145) 11/15/24 05:07 11/15/24 BUN 12 mg/dL (7-18) 11/15/24 05:07 11/15/24 Creatinine 0.69 mg/dL (0.55-1.02) 11/15/24 05:07 11/15/24 Glucose 100 mg/dL (74-106) 11/15/24 05:07 11/15/24 TSH 1.18 uIU/mL (0.358-3.74) 01/22/15 08:03 01/22/15 COAG Pre-Assessment Diagnosis/Proposed Procedure Planned Operative Procedure(s): Right shoulder arthroscopy. Incision and drainage. Removal of hardware. 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 When Was Last Pacemaker Check QUESTION #4 FULL TEXT: You/Your Family Experience fever (hyperthermia) with Anesthesia Last Oral Intake Last Oral intake: Last Oral Intake NPO since 00:00 11/15/24 13:06 Meds taken in AM with sips of Yes 11/15/24 13:06 water? Meds patient instructed to SEE MAR 11/15/24 13:06 take am of surgery PONV PONV - strategic partner development manager: PONV - strategic partner development manager Female HX of Motion Sickness HX of N/V After Surgery Non-Smoker Duration of Surgery greater than 60 minutes Number of Risk Factors PONV Score Height & Weight Height & Weight: Anesthesia: Height & Weight Height 5 ft 4 in 11/15/24 13:06 Weight: 69.3 kg 11/15/24 13:06 Body Mass Index (BMI) 26.2 11/15/24 13:06 Respiratory Assessment Respiratory Assessment - strategic partner development manager: Respiratory Tract Infection Hx - strategic partner development manager Hx Respiratory Tract Infection No 11/14/24 20:07 STOP Sleep Apnea STOP Sleep Apnea - strategic partner development manager: STOP Sleep Apnea - strategic partner development manager Hx Hypertension No 11/14/24 20:10 Hx Sleep Apnea No 11/14/24 20:10 CPAP BIPAP Do you snore loudly (louder Yes 11/14/24 20:10 than talking or can be heard Do you often feel tired/ No 11/14/24 20:10 fatigued/ sleepy during daytime? Has anyone observed you stop No 11/14/24 20:10 breathing during sleep? STOP Results Negative 11/14/24 20:10 QUESTION #5 FULL TEXT : Do you snore loudly (louder than talking or can be heard through closed doors)? Tobacco Use History Tobacco Use History - strategic partner development manager: Tobacco Use History - strategic partner development manager Tobacco Use Smoking Status Former smoker 11/14/24 20:10 Hx Tobacco Use Yes 11/14/24 20:10 Years Smoking 8 11/14/24 20:10 Packs Smoked per Day 0.5 11/14/24 20:10 Smoking Cessation Date was No - quit smoking greater 11/14/24 20:10 within the last 15 years than 15 years ago Hx Smoking Cessation Date 06/03/85 11/14/24 20:10 Hx Smoking Cessation Counseling Hematologic Medial History Hematologic Hx - strategic partner development manager: Hematologic Medical Hx - documentation writer Hx of Blood Transfusion No 11/14/24 20:10 Hx of Transfusion in last 3 No 11/14/24 20:10 Months Date of Last Transfusion (if within last 3 months) Ever experience any problems No 11/14/24 20:10 with transfusion(s)? Specify any problems Hx of Preganancy in last 3 N/A 11/14/24 20:10 Months Nurse Filling Out Transfusion [id number] 11/14/24 20:10 & Questions: Date: 11/14/24 11/14/24 20:10 Time: 20:12 11/14/24 20:10 Patient unable to answer at this time (ie. confused, unrespo /Reproduction History /Reproductive History - strategic partner development manager: /Reproductive Hx- strategic partner development manager Hx Now No 11/14/24 20:07 Gestational Age (in weeks): EDC: Hx Hx Para Hx Section SAB Active Medications Active Medications: Current Medications Generic Name Dose Route Start Last Admin Trade Name Freq PRN Reason Stop Dose Admin Atorvastatin Calcium 10 mg 11/14/24 22:00 11/14/24 21:03 Atorvastatin Calcium 10 Mg Tablet PO 10 mg QHS DOMINGA Administration Cyclobenzaprine HCl 5 mg 11/14/24 22:00 11/14/24 21:03 Cyclobenzaprine Hcl 5 Mg Tablet PO 5 mg QHS DOMINGA Administration Gabapentin 300 mg 11/14/24 22:00 11/15/24 10:30 Gabapentin 300 Mg Capsule PO 300 mg BID DOMINGA Administration Sodium Chloride 100 mls @ 15 mls/hr 11/14/24 19:56 IV .Q6H40M PRN Additional IVPB Infusion Lactated Ringer's 1,000 mls @ 50 mls/hr 11/14/24 20:00 11/15/24 14:29 IV 11/16/24 11:59 0 mls/hr .Q20H DOMINGA Infusion Protocol Cefazolin Sodium 2 gm/ N/A 20 mls @ 400 mls/hr 11/14/24 22:00 11/15/24 13:20 IV 11/17/24 22:01 Infused Q8 DOMINGA Infusion Vancomycin IV-PHARMACY TO DOSE 500 mls @ 250 mls/hr 11/15/24 13:00 1 each/ Sodium Chloride IV X1 PRN Rx to Dose Protocol Vancomycin HCl 1,000 mg in 200 mls @ 200 mls/hr 11/15/24 23:00 Vancomycin IV Q12H DOMINGA Sodium Chloride 1,000 mls @ 15 mls/hr 11/15/24 14:40 11/15/24 14:44 IV 11/21/24 03:59 15 mls/hr .Q48H DOMINGA Administration Protocol Ibuprofen 600 mg 11/14/24 22:00 11/15/24 13:04 Ibuprofen 600 Mg Tablet PO Not Given TID DOMINGA Nutritional Formula (Lactose Free) 120 ml 11/15/24 08:00 11/15/24 12:10 Ensure Plus High Protein 120 Ml Liquid PO Not Given TIDCM DOMINGA Ondansetron HCl 4 mg 11/14/24 19:55 Ondansetron 4 Mg/2 Ml Vial IV Q8H PRN PRN NAUSEA/VOMITING Sodium Chloride 10 - 40 ml 11/14/24 19:56 11/15/24 13:13 0.9% Saline Lock 10 Ml Syringe IV 10 ml UD PRN Administration SALINE FLUSH Vancomycin Protocol 1 lab 11/16/24 21:30 Vancomycin Trough/Random Due 11/16/24 23:30 DAILY [facility] PFSH Medical History Rotator cuff tear Spinal cord tumor High cholesterol Anemia Former smoker Home Medications ?Medication ?Instructions ?Recorded ?Last Taken ?Type cyclobenzaprine 5 mg tablet 5 mg PO QHS 11/14/24 Unknown History doxycycline hyclate 100 mg tablet 100 mg PO BID 11/14/24 Unknown History gabapentin 300 mg capsule 300 mg PO BID pain 11/14/24 11/15/24 History oxaprozin 600 mg tablet 1,200 mg PO DAILY 11/14/24 Unknown History rosuvastatin 5 mg tablet 5 mg PO DAILY 11/14/24 Unknown History Allergy/AdvReac Type Severity Reaction Status Date / Time tramadol Allergy Swelling Verified 11/14/24 20:00 Surgical History Tubal ligation status H/O hernia repair S/P hysterectomy Social History Smoking Status: Former smoker Review of Systems (Anesthesia) ROS Narrative System reviewed and no additional complaints, except as documented.
--- NOTE | 2024-11-15 15:31 | CASEMGMT ---
RN CM to pt room at this time for initial assessment. Pt is off of the floor for surgery. CM to follow up tomorrow. MS3 RN CM notified.
[2024-11-15] MEDS: Epinephrine (1 mg/ml) 1 MG/ML VIAL (15:55)
[2024-11-15] MEDS: Bupivacaine Mpf 0.5% 30 ML VIAL (16:54)
--- NOTE | 2024-11-15 17:02 | OP.PCM_ITS ---
Operative Report (Standard) Operative Information Date of Procedure: 11/15/24 Pre-Operative Diagnosis: 1. Right shoulder septic arthritis 2. Retained orthopedic hardware right shoulder Post-Operative Diagnosis: 1. Right shoulder septic arthritis 2. Retained orthopedic hardware right shoulder Surgery/Procedure Performed: 1. Right shoulder arthroscopic irrigation and debridement, synovectomy 2. Removal of hardware right shoulder sewage disposal worker: Yes Sand Mill Operator Facing Sand: Merlene Reed Tasks completed by senior office support assistant sosa: Opening & closing and Retracting Additional addictions counselor assistant?: No Type of Anesthesia: General RN Documented Start/Stop Times: Operation Date: 11/15/24 15:50 Case Time Into Pre-Op 11/15/24 14:34 Anesthesia Start 11/15/24 15:55 Into Room 11/15/24 15:55 Procedure Start 11/15/24 16:21 Procedure Start Time: 16:21 Procedure Stop Time: 17:03 Select all DRAINS/GRAFTS/IMPLANTS that apply: None Estimated Blood Loss: 10 cc Specimen collected: No Description of surgery: Patient was identified in the preoperative holding operating, medical record number, and date of . The operative extremity was marked. All questions were answered to the patient's satisfaction. At time of her procedure, patient was brought to the operative suite and positioned supine a standard operating table. General anesthesia was induced and endotracheal tube placed. The tube was secured and then the patient was positioned in the lateral decubitus position with the right side up. All bony prominences were well-padded. An axillary roll was placed. We spun the bed 40 degrees. Patient was held in place with a beanbag. Right upper extremity was then prepped and draped in normal, sterile orthopedic fashion. We performed a timeout confirming the side, site, and operation to be performed. No concerns were voiced and without to proceed with surgery. Patient has been receiving scheduled ceftriaxone and vancomycin and no additional doses were administered prior to incision. Right upper extremity was placed in arthroscopic traction throughout the arthroscopic portion the case approximately 30 minutes. Standard posterior portal was established 11 blade scalpel. Blunt tipped trocar was used to enter the glenohumeral joint. Joint was filled with normal saline with epinephrine. Cloudy serosanguineous type fluid was encountered in the joint. Extensive synovitis was noted. 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 Anterior interval portal was then established. Synovitis was debrided with shaver and cautery. Unstable cartilage was debrided with arthroscopic shaver. Type II failure of the rotator cuff was noted with intact tendon stump. There was communication into the subacromial space. Approximately 3 L of normal saline was washed through the joint space before moving to the subacromial space. I then reentered the shoulder in the subacromial space with blunt tipped trocar. Posterior lateral portal was established. No purulence was encountered. Limited debridement was performed to help visualize the rotator cuff tear. Type II failure was noted with intact repair and a new tear medial to our double row fixation. I proceeded with removal of the fiber tack anchors medially and the 2 swivel lock anchors laterally. No remaining suture material or anchor material was visualized. I assessed the mobility of the remaining tendon medially. Grasping the tissue with gentle traction demonstrated severely poor quality tissue with tearing noted with only light traction. 9 additional liters of normal saline were washed through the subacromial space. Hemostasis was excellent. I debrided the lateral skin incision in the area of suspected subcutaneous purulence. 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 The shoulder was then suctioned and instruments removed. Portal sites were closed in interrupted [id number] fashion. Portal sites and intra-articular block was administered with 30 cc total half percent bupivacaine plain. Bulky sterile compression dressing was applied. Patient was safely explained the operative suite and awakened from anesthesia. She was transferred to her hospital bed and subsequently to PACU in stable condition. Simple sling was applied. Postoperative plan: Patient will be kept in the hospital overnight. Continue IV vancomycin and ceftriaxone per ID. Final sensitivities are pending as initial office cultures are yielding Staphylococcus aureus. We will await final ID recommendations. Likely discharge home once final ID antibiotic recommendations are obtained. Range of motion as tolerated, weightbearing as tolerated right shoulder. Sling for comfort. Oxycodone, Tylenol, oxaprozin ordered for pain management. Aspirin 81 mg twice daily for DVT prophylaxis x 2 weeks. Surgical Findings: Type II tear supraspinatus. Poor tissue quality. Suspected irreparable cuff tear. Serosanguineous effusion without gross purulence. Severe chondromalacia, grade 4 humeral head grade 3 glenoid. Complications Complications: No Admit VTE Documentation VTE Present on Admission: No VTE Mechan Device Prophylaxis: SCD's and Knee High CLAU Hose VTE Pharm Prophylaxis ordered?: Yes
--- NOTE | 2024-11-15 17:14 | PCM.POST.ANE ---
Anesthesia: Postop Eval I Current Vital Signs Temperature: 98.1 F Pulse Rate: 95 Blood Pressure: 115/61 Respiratory Rate: 20 Pulse Ox: 96 Oxygen Delivery Method: Room Air Assessment Airway patent: Yes Spontaneous unlabored respirations: Yes Mental status: Awake nausea: No Vomiting: No Anesthesia Complication: No Fluid Hydration Crystalloid volume administer (ml): 600 Total IV fluid infused: 600 Progress Note Anesthesia document: Postop Eval 1 completed: Yes
--- NOTE | 2024-11-15 18:52 | POSTOPAN2_ITS ---
Anesthesia Postop Eval I Sum Postop Eval Completion status Anesthesia document: Postop Eval 1 completed: Yes Anesthesia Postop Eval I Summary Anesthesia Postop Eval I Summary: Anesthesia Postop Eval I: Assessment Summary Airway patent Yes 11/15/24 17:15 FLIGHT OPERATION COORDINATOR.[email or web address] Spontaneous unlabored Yes 11/15/24 17:15 FLIGHT OPERATION COORDINATOR.JSWI respirations Mental status Awake 11/15/24 17:15 FLIGHT OPERATION COORDINATOR.[email or web address] nausea No 11/15/24 17:15 FLIGHT OPERATION COORDINATOR.[email or web address] Vomiting No 11/15/24 17:15 FLIGHT OPERATION COORDINATOR.[email or web address] Anesthesia Postop Eval I: Fluid Summary Crystalloid volume administer 600 11/15/24 17:15 FLIGHT OPERATION COORDINATOR.JSWI (ml) Colloids volume administered ( ml) Blood Product volume administered (ml) Total IV fluid infused 600 11/15/24 17:15 FLIGHT OPERATION COORDINATOR.JSWI Anesthesia Postop Eval I: Summary Notes Anesthesia Complication No 11/15/24 17:15 FLIGHT OPERATION COORDINATOR.JSWI Anesthesia Complication Comment: Post-operative progress note Anesthesia: Postop Eval II Evaluation Mental status: Awake and Calm Pain Level: 2 nausea: No Vomiting: No Complications Anesthesia Complication: No
--- NOTE | 2024-11-15 18:52 | PCM.POSTANE2 ---
Anesthesia Postop Eval I Sum Postop Eval Completion status Anesthesia document: Postop Eval 1 completed: Yes Anesthesia Postop Eval I Summary Anesthesia Postop Eval I Summary: Anesthesia Postop Eval I: Assessment Summary Airway patent Yes 11/15/24 17:15 FERRYBOAT TICKET TAKER.[email or web address] Spontaneous unlabored Yes 11/15/24 17:15 FERRYBOAT TICKET TAKER.JSWI respirations Mental status Awake 11/15/24 17:15 FERRYBOAT TICKET TAKER.JSWI nausea No 11/15/24 17:15 FERRYBOAT TICKET TAKER.[email or web address] Vomiting No 11/15/24 17:15 FERRYBOAT TICKET TAKER.JSWI Anesthesia Postop Eval I: Fluid Summary Crystalloid volume administer 600 11/15/24 17:15 FERRYBOAT TICKET TAKER.JSWI (ml) Colloids volume administered ( ml) Blood Product volume administered (ml) Total IV fluid infused 600 11/15/24 17:15 FERRYBOAT TICKET TAKER.JSWI Anesthesia Postop Eval I: Summary Notes Anesthesia Complication No 11/15/24 17:15 FERRYBOAT TICKET TAKER.JSWI Anesthesia Complication Comment: Post-operative progress note Anesthesia: Postop Eval II Evaluation Mental status: Awake and Calm Pain Level: 2 nausea: No Vomiting: No Complications Anesthesia Complication: No
[2024-11-15] MEDS: Aspirin 81 MG TAB.CHEW PO (22:45)
[2024-11-15] MEDS: Atorvastatin Calcium 10 MG Tablet PO (22:46)
[2024-11-15] MEDS: cycloBENZAPRine HCl 5 MG TABLET PO (22:46)
[2024-11-15] MEDS: Acetaminophen 500 MG Tablet 1000 MG PO (22:46)
[2024-11-15] MEDS: Lactated Ringers 1,000 ML 50 ML IV (22:49)
[2024-11-15] MEDS: Vancomycin IV 1,000 MG/200 ML BAG 200 MG IV (22:50)
[2024-11-16 02:16] VITALS: BP 102/62; PULSE 89; RESP 14; TEMP 36.9; O2SAT 95
[2024-11-16] MEDS: Cefazolin 2 GM in Syringe IV ×3 (06:28→21:02)
[2024-11-16] MEDS: 0.9% Saline Lock 10 ML Syringe IV ×2 (06:39→21:02)
[2024-11-16] MEDS: Ibuprofen 600 MG Tablet PO ×3 (06:39→21:02)
[2024-11-16] MEDS: Acetaminophen 500 MG Tablet 1000 MG PO ×3 (06:39→21:02)
[2024-11-16 06:47] VITALS: BP 108/72; PULSE 84; RESP 16; TEMP 37.1; O2SAT 97
[2024-11-16] MEDS: Gabapentin 300 MG Capsule PO ×2 (09:48→21:02)
[2024-11-16] MEDS: Aspirin 81 MG TAB.CHEW PO ×2 (09:48→21:02)
[2024-11-16] MEDS: Ensure Plus High Protein 120 ML LIQUID PO ×2 (09:48→19:04)
[2024-11-16 09:50] VITALS: BP 103/56; PULSE 106; RESP 16; TEMP 36.7; O2SAT 98
--- NOTE | 2024-11-16 09:50 | CASEMGMT ---
JONATHAN LONDONO Assessment: Face to Face with pt for initial transition planning/care coordination assessment. JONATHAN LONDONO introduced self and role at [facility], pt voices understanding and consents to assessment. Pt is A&O x4 and answers all questions appropriately at this time. Pt sitting up in bed with nurse at bedside. Care providers, pharmacy, and demographics verified/updated. Admitting Dx:septic arthritis R shoulder PCP:Gilda Specialists:radha Perry Pharmacy:[facility] Insurance:[facility] Prescription Benefit: yes LNOK:Frederick Gomes, son Living Arrangements: Pt lives with adult son and his girlfriend in a two story home with 5 steps to enter with a rail. Pt reports she was I in ADL/IADLs at home prior to this hospitalization. Pt son's girlfriend assisted her after the prior surgery. Pt family takes laundry up and down the stairs but pt performs the task on own. Pt denies concerns at home. Transportation: Pt drives self and denies concerns with transportation. Pt son Frederick will transport her until she can drive again. DME:[facility] HHC/SNF:Denies hx of Pt states no concerns with going home at time of dc. Pt anticipates going home today. Discussed receiving culture results and ID recommendations. Pt states she does not think she will need IV atb. She would like to do this at home or as an outpt should she need them. Pt states no further concerns/needs. CM to follow. Advised pt to ask CM if any further question/concerns/needs arise, voices understanding. Pt Goal:Home Plan:Home, follow ID recs Handoff given to MS3 JONATHAN LONDONO
--- NOTE | 2024-11-16 13:49 | PN.ID_ITS ---
Physical Exam Narrative R shoulder mild soreness, no fever, no n/v/d. Const alert and no apparent distress General Appearance: cooperative Resp normal air movement and clear to auscultation bilaterally Cardio regular rate and regular rhythm GI soft to palpation, non-tender and non-distended Skin no rashes or lesions noted ID ID: Route of nutrition/ use of supplements: [] Nutritional Intake: [] IV Site: [] Dumont Catheter: [] Assessment & Plan Assessment/Plan (1) Septic arthritis of shoulder, right: QUALIFIERS: Septic arthritis organism: staphylococcal Qualified Code(s): M00.011 - Staphylococcal arthritis, right shoulder PLAN: Aspiration with MSSA. Bcx neg. Taken to OR by Dr. Perry 11/15 for I&D and hardware removal. On cefazolin, will stop vanc. Will order picc and 12 more days iv cefazolin with weekly labs, ID followup in 2 weeks. Plan on one more week po abx (doxy or keflex) once IV is complete. D/w showcase trimmer. Will follow
--- NOTE | 2024-11-16 13:58 | CASEMGMT ---
Discharge Planning A list of?HH providers including quality and resource use data and consistent with the patient's preferred geographic region, medical needs, and insurance network was created in [facility] Guide.? This list was provided to the RN SPRING. Mary Younger, Discharge Planning Asst.
--- NOTE | 2024-11-16 14:04 | CASEMGMT ---
Referral sent to I. Mary Younger DC Planning Asst.
--- NOTE | 2024-11-16 14:13 | CASEMGMT ---
Addendum entered by Bartolo Payne 11/16/24 14:50: Dr Armenta states it would be okay for pt to miss this PM's IV atb dose, if needed. Original Note: JONATHAN LONDONO note: Per Dr Armenta pt will need IV atb's @ discharge. Script for IV cefazolin Q 8 hrs received, stop date 11/28/24. Dr Armenta states pt medically ready to be discharged home. Dr Perry states pt able to be discharged home, once home IV atb set-up/coordinated. Rajwinder BSN RN CM
--- NOTE | 2024-11-16 14:38 | PCM.PN.ORT ---
Subjective Subjective Patient seen and examined. She states she feels well and denies any fevers, chills, nausea vomiting, chest pain or shortness of breath. She reports minimal pain. Objective Data Objective Data Vital Signs: Vital Signs Temp Pulse Resp BP Pulse Ox O2 Del Method 98.1 F 106 H 16 103/56 L 98 Room Air 11/16/24 09:50 11/16/24 09:50 11/16/24 09:50 11/16/24 09:50 11/16/24 09:50 11/16/24 09:57 Oxygen Delivery Method Room Air Weight: 152 lb 12.485 oz Body Mass Index (BMI) 26.2 Intake & Output: Intake and Output for Last 24 Hours 11/14/24 11/15/24 11/16/24 23:59 23:59 23:59 Intake Total 1656.0 / 1856.0 420 / 420 Balance 1656.0 / 1856.0 420 / 420 Lab / Micro Data 11/15/24 05:07 11/15/24 05:07 Physical Exam Narrative General - A&Ox3, NAD. VSS/AF. Right upper Extremity - SILT & 5/5 in radial, ulnar, musculocutaneous, axillary, and median nerve distributions. Radial, ulnar pulses 2+. Compartments soft and compressible. BCR in finger tips. Incisional dressing C/D/I. Assessment & Plan Assessment/Plan (1) Septic arthritis of shoulder, right: QUALIFIERS: Septic arthritis organism: staphylococcal Qualified Code(s): M00.011 - Staphylococcal arthritis, right shoulder PLAN: POD# 1 s/p right shoulder arthroscopic I&D, removal of hardware -Patient seen and examined. She is doing well today. We discussed her condition in terms of the infection as well as the unfortunate tearing pattern of her rotator cuff which I suspect is irreparable. I explained there is surgical options going forward but weclear the infection. May utilize the sling as needed for comfort. - Pain control -doing well with Tylenol and ibuprofen - DVT PPX -Multimodal aspirin 81 mg twice daily, SCDs, CLAU hose, early mobilization - Case management - D/C planning aspiration growing MSSA. Blood cultures are negative. Dr. Armenta recommending 12 days Ancef with weekly labs, PICC line. Discharge pending PICC line placement and home health care coordination.
--- NOTE | 2024-11-16 14:42 | PCM.DC ---
Discharge Instructions Diet Discharge Diet: No restrictions DC O2, CPAP, BIPAP needs Home O2 Discharge instructions: No Dressing / Incision Discharge Activity: May Not Drive (2 weeks postoperatively) May shower in (days): 1 Ice area for (Minutes): 20 Weight Bearing Status: Weight bearing as tolerated Lifting Restrictions: No lifting more than 5 pounds with the operative extremity Dressing / Incision Call your doctor if your incision/area has: Sudden Increased Bleeding, Increased Redness and Foul Smelling Discharge Call your doctor if you observe: Fever of 101 or Higher, Shortness of breath and Chest pain Change Dressing in: 1 day (Change dressing as needed. Okay to leave open to air if no drainage after postoperative day #2) Cleanse incision/area with: Soap & Water Follow Up Care Please Follow Up With: Moe Perry DO When: 2 weeks Discharge Plan Admission Admit Date/Time: 11/14/24 20:13 Primary Reason for Your Visit: Right shoulder infection Attending Provider: Moe Perry Primary Care Provider: Kevin Vo Consulting Providers: Deawyne Armenta; Jose Antonio Saez Discharge Orders/Prescriptions Prescriptions: New cefazolin 2 gram recon soln 2 g IV Q8H 12 Days Rx Instructions: stop date 11/28/24. Dx: mssa septic arthritis. Weekly bmp, cbc, and ESR. Fax to [phone]. Routine picc care per protocol. aspirin 81 mg Tablet,Chewable 81 mg PO BID 14 Days Qty: 28 0RF acetaminophen 500 mg Tablet 1,000 mg PO Q8 7 Days Qty: 42 0RF Continued gabapentin 300 mg capsule 300 mg PO BID oxaprozin 600 mg tablet 1,200 mg PO DAILY rosuvastatin 5 mg tablet 5 mg PO DAILY cyclobenzaprine 5 mg tablet 5 mg PO QHS Discontinued doxycycline hyclate 100 mg tablet 100 mg PO BID Referrals / Follow Up: Moe Perry DO [Med Staff - Active Staff] - Within 2 Weeks Kevin oV MD [Primary Care Provider] - Dewayne Armenta MD [Med Staff - Active Staff] - Disposition Disposition (needs filled in before D/C Order can be placed): Home Health Service
--- NOTE | 2024-11-16 14:43 | CASEMGMT ---
Addendum entered by Chana Dubois 11/16/24 16:10: Received tc from [facility], they are unable to staff pt. JONATHAN LONDONO into pt room, pt states if son watches the IV, he could do it. Spoke with Sayda from [facility], [facility] nurse cannot teach pt per [facility] rules. It is too late in the day to do a virtual teach. They will plan to have rep come on Tuesday to teach pt. Then pt will be set up with outpt labs and picc dressing changes. JONATHAN LONDONO into pt room, pt is agreeable to this. She is aware that she will be here through the weekend. Sent message to Dr. Perry via backline. Addendum entered by Chana Dubois 11/16/24 15:43: TC to [facility], they are unable to staff pt. Addendum entered by Chana Dubois 11/16/24 15:38: The following agencies have declined pt: [facility], [facility], [facility], [facility] and . TC to Flor at [facility] to see if they would have availability on Tuesday or Tuesday, they do not. Bryan from [facility] present in the building and visited pt room with JONATHAN LONDONO. Pt does not feel that a virtual teach would be sufficient for her son who is the person learning. [facility] had not responded, tc to [facility], spoke with Aida, she will call the SOC nurse to see if this is an option for their agency. Original Note: JONATHAN LONDONO into pt room, provided pt with a verbal local in network list of DME companies, pt chose [facility]. Provided HH list created by dc program services assistant, pt states she has no preference. JONATHAN LONDONO sent referrals to all agencies listed and will give pt option of accepting agencies. Agencies referral sent to is [facility], [facility], [facility], [facility], [facility], [facility], [facility], [facility], [facility], [facility] and . TC to [facility], spoke with Flor, they are unable to take pt for services. Received message immediately that [facility] is unable to accept pt as well.
--- NOTE | 2024-11-16 14:45 | PCM.DC.SUM ---
Providers Date of Admission: 11/14/24 Primary Care Physician: Dr. Kevin Vo MD Consultations 11/14/24 19:58 Consult: Infectious Disease Routine Consulting Provider: Dewayne Armenta Reason for Consult: Right shoulder septic arthritis EMERGENT Consult: No MD Notified: Yes Date Notified: 11/14/24 Time Notified: 20:01 Method of Notification: Text Reason For Visit: SEPTIC ARTHRITIS RIGHT SHOULDER Diagnosis Discharge Diagnosis (1) Septic arthritis of shoulder, right: Status: Acute Code(s): M00.9 - Pyogenic arthritis, unspecified Qualifiers: Septic arthritis organism: staphylococcal Qualified Code(s): M00.011 - Staphylococcal arthritis, right shoulder Plan: POD# 1 s/p right shoulder arthroscopic I&D, removal of hardware -Patient seen and examined. She is doing well today. We discussed her condition in terms of the infection as well as the unfortunate tearing pattern of her rotator cuff which I suspect is irreparable. I explained there is surgical options going forward but weclear the infection. May utilize the sling as needed for comfort. - Pain control -doing well with Tylenol and ibuprofen - DVT PPX -Multimodal aspirin 81 mg twice daily, SCDs, CLAU hose, early mobilization - Case management - D/C planning aspiration growing MSSA. Blood cultures are negative. Dr. Armenta recommending 12 days Ancef with weekly labs, PICC line. Discharge pending PICC line placement and home health care coordination. Medications at Discharge Home Medications cyclobenzaprine 5 mg tablet 5 mg PO QHS 11/14/24 gabapentin 300 mg capsule 300 mg PO BID pain 11/14/24 oxaprozin 600 mg tablet 1,200 mg PO DAILY 11/14/24 rosuvastatin 5 mg tablet 5 mg PO DAILY 11/14/24 acetaminophen 500 mg tablet 1,000 mg (2 x 500 mg) PO Q8 7 days #42 tabs 11/16/24 aspirin 81 mg chewable tablet 81 mg PO BID 14 days #28 tabs 11/16/24 cefazolin 2 gram intravenous solution 2 g IV Q8H 12 days 11/16/24 Hospital Course Operations arthroscopy, shoulder (Right shoulder arthroscopy with irrigation and debridement with removal of hardware 11/15/2024) Summary of Care Provided Minutes Spent on Discharge: 15 Hospital Course: Patient underwent right shoulder arthroscopic irrigation and debridement with removal of hardware 11/15/24. She tolerated the procedure well. She was started on IV antibiotics the day prior which was her day of admission, 11/14/24. She was seen by infectious disease who recommended 2 weeks of IV Ancef via PICC line. PICC line was placed on 11/16/24 however coordination of home health care and delivery of antibiotics was delayed requiring her to stay in the hospital for IV antibiotic therapy until today 11/19/24. She and her son were educated regarding IV infusion administration. She was able to be discharged to home in stable condition on postoperative day #4. Physical Exam Narrative General - A&Ox3, NAD. VSS/AF. Right upper Extremity - SILT & 5/5 in radial, ulnar, musculocutaneous, axillary, and median nerve distributions. Radial, ulnar pulses 2+. Compartments soft and compressible. BCR in finger tips. Incisional dressing C/D/I. Weight / BMI Weight Weight: 152 lb 12.485 oz Body Mass Index (BMI) 26.2 ABG / Lab / Microbiology Data 11/15/24 05:07 11/15/24 05:07 Microbiology: Microbiology 11/15/24 08:29 Blood Culture (Wb) - Anticubital Right Blood Culture - Preliminary No growth in 48 hours. 11/15/24 08:33 Blood Culture (Wb) - Left Hand Blood Culture - Preliminary No growth in 48 hours. D/C Instructions Discharge Diet: No restrictions May shower in (days): 3 Ice area for (Minutes): 20 Weight Bearing Status: Weight bearing as tolerated Call your doctor if your incision/area has: Sudden Increased Bleeding, Increased Redness and Foul Smelling Discharge Call your doctor if you observe: Fever of 101 or Higher, Shortness of breath and Chest pain Cleanse incision/area with: Soap & Water DC O2, CPAP, BIPAP Needs Home O2 Discharge instructions: No Please Follow Up With: Moe Perry DO When: 2 weeks Meaningful Use Info Meaningful Use Meaningful Use Diagnoses (Choose all that apply): None applicable Ischemic Stroke Statin Dosing Therapy Reference: STATIN DOSE THERAPY REFERENCE: * Patients > 75 years receive moderate or high dose statin therapy. * Patients 75 years or YOUNGER should receive HIGH intensity statin dose unless contraindicated. You will be required to document reason for non-treatment if statin daily dose does not meet guidelines. HIGH DOSE STATIN THERAPY DAILY Atorvastatin > than or = to 40 mg Rosuvastatin > than or = to 20 mg Amlodipine + Atorvastatin > than or = to 2.5/40 mg Ezetimibe + Simvastatin 10/80 mg Simvastatin 80mg Discharge Plan Admission Admit Date/Time: 11/14/24 20:13 Primary Reason for Your Visit: Right shoulder infection Attending Provider: Moe Perry Primary Care Provider: Kevin Vo Consulting Providers: Dewayne Armenta; Jose Antonio Saez Discharge Orders/Prescriptions Prescriptions: New cefazolin 2 gram recon soln 2 g IV Q8H 12 Days Rx Instructions: stop date 11/28/24. Dx: mssa septic arthritis. Weekly bmp, cbc, and ESR. Fax to [phone]. Routine picc care per protocol. aspirin 81 mg Tablet,Chewable 81 mg PO BID 14 Days Qty: 28 0RF acetaminophen 500 mg Tablet 1,000 mg PO Q8 7 Days Qty: 42 0RF Continued gabapentin 300 mg capsule 300 mg PO BID oxaprozin 600 mg tablet 1,200 mg PO DAILY rosuvastatin 5 mg tablet 5 mg PO DAILY cyclobenzaprine 5 mg tablet 5 mg PO QHS Discontinued doxycycline hyclate 100 mg tablet 100 mg PO BID Referrals / Follow Up: Moe Perry DO [Med Staff - Active Staff] - Within 2 Weeks Kevin Vo MD [Primary Care Provider] - Dewayne Armenta MD [Med Staff - Active Staff] - Disposition Disposition (needs filled in before D/C Order can be placed): Home Health Service
[2024-11-16 19:05] VITALS: BP 139/76; PULSE 78; RESP 16; TEMP 36.4; O2SAT 96
[2024-11-16 20:30] VITALS: BP 108/55; PULSE 85; RESP 16; TEMP 36.6; O2SAT 94
[2024-11-16] MEDS: Atorvastatin Calcium 10 MG Tablet PO (21:02)
[2024-11-16] MEDS: cycloBENZAPRine HCl 5 MG TABLET PO (21:02)
[2024-11-17 02:20] VITALS: BP 105/62; PULSE 85; RESP 16; TEMP 36.7; O2SAT 96
[2024-11-17] MEDS: Acetaminophen 500 MG Tablet 1000 MG PO ×3 (05:34→21:16)
[2024-11-17] MEDS: Cefazolin 2 GM in Syringe IV ×3 (05:34→21:16)
[2024-11-17] MEDS: Ibuprofen 600 MG Tablet PO ×3 (05:34→21:16)
[2024-11-17] MEDS: 0.9% Saline Lock 10 ML Syringe IV ×3 (05:35→21:16)
[2024-11-17 09:15] VITALS: BP 100/59; PULSE 77; RESP 18; TEMP 36.8; O2SAT 96
[2024-11-17] MEDS: Aspirin 81 MG TAB.CHEW PO ×2 (09:17→21:17)
[2024-11-17] MEDS: Gabapentin 300 MG Capsule PO ×2 (09:19→21:16)
[2024-11-17] MEDS: Ensure Plus High Protein 120 ML LIQUID PO (12:06)
[2024-11-17 14:02] VITALS: BP 98/58; PULSE 86; RESP 18; TEMP 36.8; O2SAT 96
--- NOTE | 2024-11-17 16:04 | PCM.PN.ORT ---
Subjective Subjective Patient seen and examined. Denies any new complaints. She states her right shoulder feels a little swollen but overall feels good. She she feels good out of the sling. She states pain is controlled on Tylenol and ibuprofen. Denies any fevers, chills, nausea vomiting, chest pain shortness of breath. Objective Data Objective Data Vital Signs: Vital Signs Temp Pulse Resp BP Pulse Ox O2 Del Method 98.2 F 86 18 98/58 L 96 Room Air 11/17/24 14:02 11/17/24 14:02 11/17/24 14:02 11/17/24 14:02 11/17/24 14:02 11/17/24 14:02 Oxygen Delivery Method Room Air Weight: 152 lb 12.485 oz Body Mass Index (BMI) 26.2 Intake & Output: Intake and Output for Last 24 Hours 11/15/24 11/16/24 11/17/24 23:59 23:59 23:59 Intake Total 1656.0 / 1856.0 1760 / 1760 340 / 340 Balance 1656.0 / 1856.0 1760 / 1760 340 / 340 Lab / Micro Data 11/15/24 05:07 11/15/24 05:07 Micro: Microbiology 11/15/24 08:29 Blood Culture (Wb) - Anticubital Right Blood Culture - Preliminary No growth in 48 hours. 11/15/24 08:33 Blood Culture (Wb) - Left Hand Blood Culture - Preliminary No growth in 48 hours. Physical Exam Narrative General - A&Ox3, NAD. VSS/AF. Right upper Extremity - SILT & 5/5 in radial, ulnar, musculocutaneous, axillary, and median nerve distributions. Radial, ulnar pulses 2+. Compartments soft and compressible. BCR in finger tips. Incisional dressing C/D/I. Assessment & Plan Assessment/Plan (1) Septic arthritis of shoulder, right: QUALIFIERS: Septic arthritis organism: staphylococcal Qualified Code(s): M00.011 - Staphylococcal arthritis, right shoulder PLAN: POD# 2 s/p right shoulder arthroscopic I&D, removal of hardware -Patient seen and examined. Doing well. Ready for discharge, but Awaiting home health care coordination for 11/19/2024. Close continue Ancef while she was in the hospital with plans for 11 more days of Ancef with PICC line - Pain control -doing well with Tylenol and ibuprofen - DVT PPX -Multimodal aspirin 81 mg twice daily, Pamella, CLAU suárez, early mobilization - Case management - D/C planning
[2024-11-17 20:15] VITALS: BP 111/74; PULSE 85; RESP 16; TEMP 36.8; O2SAT 94
[2024-11-17] MEDS: cycloBENZAPRine HCl 5 MG TABLET PO (21:16)
[2024-11-17] MEDS: Atorvastatin Calcium 10 MG Tablet PO (21:16)
[2024-11-18 02:10] VITALS: BP 101/61; PULSE 75; RESP 16; TEMP 36.7; O2SAT 95
[2024-11-18] MEDS: Acetaminophen 500 MG Tablet 1000 MG PO ×3 (05:39→21:44)
[2024-11-18] MEDS: 0.9% Saline Lock 10 ML Syringe IV ×2 (05:39→21:44)
[2024-11-18] MEDS: Cefazolin 2 GM in Syringe IV ×3 (05:39→21:44)
[2024-11-18] MEDS: Ibuprofen 600 MG Tablet PO ×3 (05:39→21:44)
[2024-11-18 08:09] VITALS: BP 118/59; PULSE 77; RESP 16; TEMP 36.9; O2SAT 96
[2024-11-18] MEDS: Gabapentin 300 MG Capsule PO ×2 (08:59→21:44)
[2024-11-18] MEDS: Ensure Plus High Protein 120 ML LIQUID PO (08:59)
[2024-11-18] MEDS: Aspirin 81 MG TAB.CHEW PO ×2 (08:59→21:44)
[2024-11-18 14:00] VITALS: BP 106/54; PULSE 83; RESP 16; TEMP 37; O2SAT 97
--- NOTE | 2024-11-18 19:11 | PCM.PN.ORT ---
Subjective Subjective Patient seen and examined. Denies any complaints. Hopeful for discharge tomorrow. Denies fevers, chills, nausea vomiting, chest pain or shortness of breath. Objective Data Objective Data Vital Signs: Vital Signs Temp Pulse Resp BP Pulse Ox O2 Del Method 98.6 F 83 16 106/54 L 97 Room Air 11/18/24 14:00 11/18/24 14:00 11/18/24 14:00 11/18/24 14:00 11/18/24 14:00 11/18/24 14:00 Oxygen Delivery Method Room Air Weight: 152 lb 12.485 oz Body Mass Index (BMI) 26.2 Intake & Output: Intake and Output for Last 24 Hours 11/16/24 11/17/24 11/18/24 23:59 23:59 23:59 Intake Total 1760 / 1760 660 / 660 440 / 440 Balance 1760 / 1760 660 / 660 440 / 440 Lab / Micro Data 11/15/24 05:07 11/15/24 05:07 Micro: Microbiology 11/15/24 08:29 Blood Culture (Wb) - Anticubital Right Blood Culture - Preliminary No growth in 48 hours. 11/15/24 08:33 Blood Culture (Wb) - Left Hand Blood Culture - Preliminary No growth in 48 hours. Physical Exam Narrative General - A&Ox3, NAD. VSS/AF. Right upper Extremity - SILT & 5/5 in radial, ulnar, musculocutaneous, axillary, and median nerve distributions. Radial, ulnar pulses 2+. Compartments soft and compressible. BCR in finger tips. Incisional dressing C/D/I. Assessment & Plan Assessment/Plan (1) Septic arthritis of shoulder, right: QUALIFIERS: Septic arthritis organism: staphylococcal Qualified Code(s): M00.011 - Staphylococcal arthritis, right shoulder PLAN: POD# 3 s/p right shoulder arthroscopic I&D, removal of hardware -Patient seen and examined. Doing well. Ready for discharge, but Awaiting home health care coordination for 11/19/2024. Will continue Ancef while she was in the hospital with plans for 10 more days of Ancef with PICC line - Pain control -doing well with Tylenol and ibuprofen - DVT PPX -Multimodal aspirin 81 mg twice daily, SCDs, CLAU suárez, early mobilization - Case management - D/C planning
[2024-11-18 20:45] VITALS: BP 128/76; PULSE 89; RESP 16; TEMP 36.7; O2SAT 95
[2024-11-18] MEDS: Atorvastatin Calcium 10 MG Tablet PO (21:44)
[2024-11-18] MEDS: cycloBENZAPRine HCl 5 MG TABLET PO (21:44)
[2024-11-19 02:20] VITALS: BP 111/68; PULSE 67; RESP 16; TEMP 36.6; O2SAT 95
[2024-11-19] MEDS: Ibuprofen 600 MG Tablet PO (05:12)
[2024-11-19] MEDS: Acetaminophen 500 MG Tablet 1000 MG PO (05:12)
[2024-11-19] MEDS: 0.9% Saline Lock 10 ML Syringe IV (05:13)
[2024-11-19] MEDS: Cefazolin 2 GM in Syringe IV ×2 (05:13→13:20)
[2024-11-19 08:05] VITALS: BP 99/67; PULSE 83; RESP 16; TEMP 36.6; O2SAT 93
--- NOTE | 2024-11-19 09:07 | CASEMGMT ---
Addendum entered by Chana Dubois 11/19/24 12:17: JNOATHAN LONDONO into pt room, pt states that she feels comfortable with her son performing the IV. Pt is aware of appt tomorrow at [facility] and is aware of where to go for this. Pt will stay for 2pm dose of med and then dc with [facility] to deliver med by this evening for 10pm dose. Pt verbalizes understanding of all and denies any further questions at this time. Picc report sent to I via [facility]. Addendum entered by Chana Dubois 11/19/24 12:05: Received notification that pt is ok to dc per [facility] and IV teaching. Updated . Addendum entered by Chana Dubois 11/19/24 11:37: [facility] present to do teaching. They have set time with pt and son to be present. RN CM to follow. Addendum entered by Chana Dubois 11/19/24 09:12: TC to [facility], spoke with tennille Henry set up for picc and lab draw tomorrow at 0930. Faxed rx to Infusion suite. Appt placed on dc instructions. Original Note: Message sent to [facility] to confirm that plan is still for pt to dc today and to let pt or this RN CM know time for teach as pt son wants to be present.
[2024-11-19] MEDS: Gabapentin 300 MG Capsule PO (10:04)
[2024-11-19] MEDS: Aspirin 81 MG TAB.CHEW PO (10:05)
--- NOTE | 2024-11-19 10:51 | PN.HOSP_ITS ---
Reason for Visit Reason for Visit: Diagnoses Staphylococcal arthritis, right shoulder (11/14/24) Objective Data Objective Data Vital Signs: Vital Signs Temp Pulse Resp BP Pulse Ox O2 Del Method 97.9 F 83 16 99/67 93 Room Air 11/19/24 08:05 11/19/24 08:05 11/19/24 08:05 11/19/24 08:05 11/19/24 08:05 11/19/24 08:05 Oxygen Delivery Method Room Air Weight: 152 lb 12.485 oz Body Mass Index (BMI) 26.2 Intake & Output: Intake and Output for Last 24 Hours 11/17/24 11/18/24 11/19/24 23:59 23:59 23:59 Intake Total 660 / 660 460 / 460 Balance 660 / 660 460 / 460 Lab / Micro Data 11/15/24 05:07 11/15/24 05:07 Micro: Microbiology 11/15/24 08:29 Blood Culture (Wb) - Anticubital Right Blood Culture - Preliminary No growth in 48 hours. 11/15/24 08:33 Blood Culture (Wb) - Left Hand Blood Culture - Preliminary No growth in 48 hours. Physical Exam Narrative Seen and examined. Patient had right shoulder arthroscopic surgery with irrigation and debridement and removal of hardware by Dr. Perry. Physical exam General: Alert, Oriented x3, Cooperative HEENT: Atraumatic, PERRLA, EOMI, Normocephalic Oral: No Gingival or Mucosal Lesions/ Ulcerations Neck: Supple, No JVD, Negative Carotid Bruits Chest wall/Lungs: Air entry diminished in bilateral lung bases. No crepitation/rhonchi Cardiovascular: Regular rate, Regular Rhythm, Normal S1, Normal S2, No M/G/R Abdomen: Bowel Sounds Present, Soft, Non Tender, Non-Distended : No dysuria. No renal angle tenderness. No suprapubic tenderness. Extremities: No edema, Capillary Refill Less than 3 Seconds Skin: Right shoulder surgical dressing is dry. Mild tenderness present. On sling and swath. Musculoskeletal: No Tenderness to Palpation of Joints or Extremities Neurological: Cranial nerves II-XII grossly intact, DTR 2+/4. No acute focal neurological deficit. Psych/Mental Status: Normal Affect, Appropriate. Assessment & Plan Assessment/Plan (1) Septic arthritis of shoulder, right: QUALIFIERS: Septic arthritis organism: staphylococcal Qualified Code(s): M00.011 - Staphylococcal arthritis, right shoulder PLAN: Plan 64-year-old female was admitted under orthopedic service for right shoulder arthroscopy for septic right shoulder. 1. Septic arthritis of right shoulder: Patient had arthroscopic irrigation and debridement with removal of hardware on 11/15/2024. She was started on IV antibiotic on the day of prior on 11/14. She has a PICC line and recommended 2 weeks of IV Ancef. As patient's shows MSSA blood culture negative. ID follow- up in 2 weeks. Patient is discharged by orthopedic service. 2. Chronic rotator cuff tear: She will need total shoulder replacement after 1 year of feeling of septic arthritis as told by patient's orthopedic surgeon to the patient. 3. Dyslipidemia: Continue home medication, on rosuvastatin 4. DVT prophylaxis: As per discretion of orthopedic surgeon for orthopedic surgery. Low average risk because of shoulder surgery. Charges/Coding Visit Charges Inpatient E&M: 20111 Subs Hosp L2
[2024-11-19 13:16] VITALS: BP 101/61; PULSE 102; RESP 18; TEMP 36.6; O2SAT 99
== END 2024-11-19 14:02 | disposition home health service (06) | DRG 501 ==
PROVIDERS: Admitting Provider Student in an Organized Health Care Education/Training Program; PCP Family Medicine; Referring Provider Student in an Organized Health Care Education/Training Program; Visit Provider Student in an Organized Health Care Education/Training Program
PROC: 0JDD0ZZ Extraction of Right Upper Arm Subcutaneous Tissue and Fascia, Open Approach (ICD-10-PCS; CPT 29827; principal; 2024-11-15 15:30)
DX: M00.011 Staphylococcal arthritis, right shoulder (principal); T84.89XA Other specified complication of internal orthopedic prosthetic devices, implants and grafts, initial encounter; B95.61 Methicillin susceptible Staphylococcus aureus infection as the cause of diseases classified elsewhere; E78.00 Pure hypercholesterolemia, unspecified; M25.411 Effusion, right shoulder; S46.211A Strain of muscle, fascia and tendon of other parts of biceps, right arm, initial encounter; M25.311 Other instability, right shoulder; M65.811 Other synovitis and tenosynovitis, right shoulder; M25.111 Fistula, right shoulder; M75.111 Incomplete rotator cuff tear or rupture of right shoulder, not specified as traumatic; B96.89 Other specified bacterial agents as the cause of diseases classified elsewhere; Z79.1 Long term (current) use of non-steroidal anti-inflammatories (NSAID); Z87.891 Personal history of nicotine dependence; Z79.2 Long term (current) use of antibiotics; Z79.02 Long term (current) use of antithrombotics/antiplatelets; Z88.8 Allergy status to other drugs, medicaments and biological substances; X50.0XXA Overexertion from strenuous movement or load, initial encounter; Z96.611 Presence of right artificial shoulder joint; M94.211 Chondromalacia, right shoulder; Y79.2 Prosthetic and other implants, materials and accessory orthopedic devices associated with adverse incidents
CPT/HCPCS: 36415; 36569; 80053; 85025; 87040; 93005; 94668; 97802; 99406; A4216; J2405

== ENCOUNTER 2024-11-20 09:13 | Outpatient (CLI) | payer OTHER, SELFPAY ==
[2024-11-20 10:00] LABS: Hematocrit 32.2 % (37-47); Hemoglobin 10.4 g/dL (12.0-15.0); Mean Corp Hgb Conc 32.3 g/dL (32-36); Mean Corpuscular Volume 95.8 fL (81-99); Mean Platelet Vol. 8.7 fl (6.2-12.0); Platelet Count 376 K/mm3 (150-450); RBC Distribution Width CV 12.8 % (11.6-14.6); RBC Distribution Width SD 44.3 fl (35.1-43.9); Red Blood Count 3.36 M/mm3 (4.2-5.4); White Blood Count 5.7 K/mm3 (4.4-11.0)
[2024-11-20 10:06] LABS: Erythrocyte Sedimentation Rate 51 mm/hr (0-30)
[2024-11-20 10:23] LABS: Anion Gap 6 (5-15); BUN 7 mg/dL (7-18); BUN/Creat Ratio 9.9 RATIO (10-20); Calcium,Total 9.6 mg/dL (8.5-10.1); Chloride 106 mmol/L (98-107); Creatinine, Serum 0.71 mg/dL (0.55-1.02); EST Glomerular Filtration Rate 89 mL/min (>60); Est Glom Filt Rate - Afr Amer 108 mL/min (>60); Glucose 107 mg/dL (74-106); Potassium 3.5 mmol/L (3.5-5.1); Sodium Level 140 mmol/L (136-145)
== END 2024-11-20 23:59 | disposition home or self-care (01) ==
LOC: MEDOUTP 09:14
PROVIDERS: PCP Family Medicine; Referring Provider Internal Medicine Infectious Disease; Visit Provider Internal Medicine Infectious Disease
DX: M00.80 Arthritis due to other bacteria, unspecified joint (principal); B95.61 Methicillin susceptible Staphylococcus aureus infection as the cause of diseases classified elsewhere
CPT/HCPCS: 36592; 80048; 85027; 85652; A4216

== ENCOUNTER 2024-11-27 12:42 | Outpatient (CLI) | payer OTHER, SELFPAY ==
[2024-11-27 13:35] LABS: Erythrocyte Sedimentation Rate 30 mm/hr (0-30)
[2024-11-27 13:36] LABS: Hematocrit 33.5 % (37-47); Hemoglobin 10.9 g/dL (12.0-15.0); Mean Corp Hgb Conc 32.5 g/dL (32-36); Mean Corpuscular Hgb 31.3 pg (27.0-32.0); Mean Corpuscular Volume 96.3 fL (81-99); Mean Platelet Vol. 8.7 fl (6.2-12.0); Platelet Count 314 K/mm3 (150-450); RBC Distribution Width CV 13.2 % (11.6-14.6); RBC Distribution Width SD 45.7 fl (35.1-43.9); Red Blood Count 3.48 M/mm3 (4.2-5.4); White Blood Count 6.2 K/mm3 (4.4-11.0)
[2024-11-27 14:31] LABS: BUN 10 mg/dL (4-19); Creatinine, Serum 0.7 mg/dL (0.6-1.0); EST Glomerular Filtration Rate 99 (>60)
[2024-11-27 15:40] LABS: BUN/Creat Ratio 15.1 RATIO (10-20); Glucose 118 mg/dL (70-99)
[2024-11-27 15:57] LABS: Anion Gap 10 (5-15); Calcium,Total 9.6 mg/dL (7.6-11.0); Carbon Dioxide 25.5 mmol/L (21.0-32.0); Chloride 105 mmol/L (98-107); Potassium 3.7 mmol/L (3.5-5.1); Sodium Level 140 mmol/L (136-145)
== END 2024-11-27 23:59 | disposition home or self-care (01) ==
LOC: MEDOUTP 12:42
PROVIDERS: PCP Family Medicine; Referring Provider Internal Medicine Infectious Disease; Visit Provider Internal Medicine Infectious Disease
DX: M00.80 Arthritis due to other bacteria, unspecified joint (principal); B95.61 Methicillin susceptible Staphylococcus aureus infection as the cause of diseases classified elsewhere
CPT/HCPCS: 36592; 80048; 85027; 85652; A4216

== ENCOUNTER 2024-11-29 08:52 | Outpatient (CLI) | payer OTHER, SELFPAY ==
[2024-11-29 09:05] VITALS: BP 118/76; PULSE 87; RESP 16; TEMP 35.9; O2SAT 99; BMI 26.2
== END 2024-11-29 23:59 | disposition home or self-care (01) ==
LOC: MEDOUTP 08:52
PROVIDERS: PCP Family Medicine; Referring Provider Internal Medicine Infectious Disease; Visit Provider Internal Medicine Infectious Disease
DX: M00.9 Pyogenic arthritis, unspecified (principal)

== ENCOUNTER → 2025-01-08 | Outpatient (CLI) | payer OTHER, SELFPAY ==
[2025-01-08 10:37] LABS: Absolute Neutrophil Count 2.2 X10^3/uL (2.0-7.7); Basophil# 0.03 X10^3/uL; Basophil% 0.7 % (0-1); Eosinophil# 0.19 X10^3/uL; Eosinophils% 4.7 % (0-5); Hematocrit 37.7 % (37-47); Hemoglobin 12.5 g/dL (12.0-15.0); Lymphocyte % 32.3 % (19-41); Mean Corp Hgb Conc 33.2 g/dL (32-36); Mean Corpuscular Hgb 31.5 pg (27.0-32.0); Mean Platelet Vol. 9.1 fl (6.2-12.0); Monocyte# 0.28 X10^3/uL; NRBC Flagged by Analyzer 0 % (0-5); Neutrophil # 2.21 X10^3/uL (2.7-7.7); Neutrophil % 55.1 % (47-70); Platelet Count 247 K/mm3 (150-450); RBC Distribution Width CV 13.3 % (11.6-14.6); Red Blood Count 3.97 M/mm3 (4.2-5.4)
[2025-01-08 10:40] LABS: Erythrocyte Sedimentation Rate 1 mm/hr (0-30)
[2025-01-08 11:28] LABS: CRP < 3.00 mg/L (0.0-3.0)
== END | disposition home or self-care (01) ==
LOC: MTLAB 07:06
PROVIDERS: PCP Family Medicine; Referring Provider Student in an Organized Health Care Education/Training Program; Visit Provider Student in an Organized Health Care Education/Training Program
DX: T84.19 Other mechanical complication of internal fixation device of bones of limb (principal); M00.011 Staphylococcal arthritis, right shoulder; S46.011D Strain of muscle(s) and tendon(s) of the rotator cuff of right shoulder, subsequent encounter; X58.XXXD Exposure to other specified factors, subsequent encounter
CPT/HCPCS: 36415; 85025; 85652; 86140

== ENCOUNTER → 2025-09-11 | Outpatient (CLI) | payer OTHER, SELFPAY ==
--- OUTSIDE RECORDS SUMMARY | 2025-09-11 07:06 | XMS RPT_ITS | CCD ---
Author Organization [facility] Team Providers Care Pole Peeler Name Role Phone PHYSICIAN, NONE Attending Unavailable PHYSICIAN, NONE Primary Care Unavailable Gilda GABRIEL, Dr. Brown Primary Care Provider Gilda GABRIEL, Dr. Brown Attending Provider [phone] Gilda GABRIEL, Dr. Brown Referring Provider [phone] Orlando SALMON, Dr. Rosa Attending Provider [phone] Orlando SALMON, Dr. Rosa Referring Provider [phone] Orlando SALMON, Dr. Rosa Admit Provider Geovany GABRIEL, Dr. Buchanan Other Provider Se GABRIEL, Dr. Brady Other Provider [phone] Mark GABRIEL, Dr. Fuchs Attending Provider Orlando SALMON, Dr. Rosa Other Provider Se GABRIEL, Dr. Brady Attending Provider [phone] Dewayne Armenta MD Attending Provider Dr. Dewayne Armenta MD Referring Provider Kevin Vo Referring Unavailable Kevin Vo Attending Unavailable Kevin Vo Primary Care Unavailable Kevin Vo Attending Unavailable Kevin Vo Primary Care Unavailable Moe Perry Admitting Unavailable Moe Perry Referring Unavailable Moe Perry Attending Unavailable Dewayne Armenta Consulting Unavailable Kevin Vo Primary Care Unavailable Jose Antonio Saez Consulting Unavailable Moe Perry Attending Unavailable Moe Perry Referring Unavailable Kevin Vo Primary Care Unavailable Dewayne Armenta Referring Unavailable Dewayne Armenta Attending Unavailable Kevin Vo Primary Care Unavailable Dewayne Armenta Referring Unavailable Geovany, Dewayne Attending Unavailable Vo, Kevin Primary Care Unavailable Geovany, Dewayne Referring Unavailable Dewayne Armenta Attending Unavailable Gilda, Kevin Primary Care Unavailable Moe Perry Referring Unavailable Gilda, Kevin Primary Care Unavailable Shila Flores Attending UnavailMoe Leon Admitting Unavailable Orlando, Moe Referring Unavailable Dewayne Armenta Consulting Unavailable Vo, Kevin Primary Care Unavailable Jose Antonio Saez Attending Unavailable Jose Antonio Saez Consulting Unavailable Lmttmaura, Moe Consulting Unavailable Moe Perry Referring Unavailable Moe Perry Attending Unavailable Gilda, Kevin Primary Care Unavailable Vo, Kevin Primary Care Unavailable Vo, Kevin Referring Unavailable Vo, Kevin Attending Unavailable Vo, Kevin Primary Care Unavailable Vo, Kevin Referring Unavailable Vo, Kevin Attending Unavailable Allergies Allergy Classification Reported Allergen(s) Allergy Type Date of Onset Reaction(s) Facility (1 source) traMADol Drug Allergy 11-14-2024 [facility] (1 source) traMADol Drug Allergy 11-14-2024 [facility] Repository Medications Current Medications Medication Drug Class(es) Dates Sig (Normalized) Sig (Original) acetaminophen 500 mg oral tablet (1 source) Start: 11-16-2024 take 2 tablets by mouth every eight hours Acetaminophen 500 mg Tablet Active 1000 mg PO EVERY 8 HOURS 42 November 16, 2024 1:00am aspirin 81 mg chewable tablet (1 source) Platelet Aggregation Inhibitor, Nonsteroidal Anti-inflammatory Drug Start: 11-16-2024 take 1 tablet by mouth twice daily Aspirin 81 mg Tablet,Chewable Active 81 mg PO TWICE A DAY 28 November 16, 2024 1:00am Cefazolin 2 gram recon soln (1 source) Start: 11-16-2024 Cefazolin 2 gram recon soln Active 2 g IV Q8H November 16, 2024 1:00am stop date 11/28/24. Dx: mssa septic arthritis. Weekly bmp, cbc, and ESR. Fax to [phone]. Routine picc care per protocol. cyclobenzaprine hydrochloride 5 mg oral tablet (1 source) Muscle Relaxant Start: 11-14-2024 take 1 tablet by mouth at bedtime Cyclobenzaprine 5 mg tablet Active 5 mg PO AT BEDTIME November 14, 2024 1:00am gabapentin 300 mg oral capsule (1 source) Anti-epileptic Agent Start: 11-14-2024 take 1 capsule by mouth twice daily Gabapentin 300 mg capsule Active 300 mg PO TWICE A DAY November 14, 2024 1:00am oxaprozin 600 mg oral tablet (1 source) Nonsteroidal Anti-inflammatory Drug Start: 11-14-2024 take 1 tablet by mouth once daily Oxaprozin 600 mg tablet Active 1200 mg PO DAILY November 14, 2024 1:00am rosuvastatin calcium 5 mg oral tablet (1 source) HMG-CoA Reductase Inhibitor Start: 11-14-2024 take 1 tablet by mouth once daily Rosuvastatin 5 mg tablet Active 5 mg PO DAILY November 14, 2024 1:00am Completed/Discontinued Medications Medication Drug Class(es) Dates Sig (Normalized) Sig (Original) doxycycline hyclate 100 mg oral tablet (1 source) Tetracycline-cla ss Drug Start: 11-14-2024 End: 11-16-2024 take 1 tablet by mouth twice daily Doxycycline Hyclate 100 mg tablet Discontinued 100 mg PO TWICE A DAY November 14, 2024 1:00am November 16, 2024 2:20pm Problems Active Problems Problem Classification Problem Date Documented Da te Episodic/Chronic Complication of device; implant or graft (1 source) Other mechanical complication of internal fixation device of right humerus, subsequent encounter; Translations: [Other mechanical complication of internal fixation device of right humerus, subsequent encounter] Onset: 01-10-2025 Episodic Fluid and electrolyte disorders (1 source) Hypokalemia; Translations: [Hypokalemia] Onset: 11-01-2024 Episodic Infective arthritis and osteomyelitis (except that caused by tuberculosis or sexually transmitted disease) (5 sources) Pyogenic arthritis of shoulder region; Translations: [Pyogenic arthritis, unspecified] Onset: 11-22-2024 11-14-2024 Episodic Other non-traumatic joint disorders (1 source) Pain in right shoulder; Translations: [Pain in right shoulder] Onset: 11-27-2024 Episodic Sprains and strains (1 source) Strain of muscle(s) and tendon(s) of the rotator cuff of right shoulder, subsequent encounter; Translations: [Strain of muscle(s) and tendon(s) of the rotator cuff of right shoulder, subsequent encounter] Onset: 11-27-2024 Episodic Past or Other Problems Problem Classification Problem Date Documented Da te Episodic/Chronic Other non-traumatic joint disorders (1 source) Pain in unspecified shoulder; Translations: [Pain in unspecified shoulder] Onset: 07-26-2024 Episodic Results Test Name Value Interpretation Reference Range Facility Absolute neutrophil countOrd ered By: Moe Amatono on 01-08-2025 Neutrophils (Bld) [#/Vol] 2.2 10*3/uL 2.0-7.7 [facility] Basophil percentageOrdered B y: Moe Orlando on 01-08-2025 Basophils/100 WBC (Bld) 0.7 % 0-1 [facility] CBC W/Diff, Automatedon Absolute Lymph 1.30 X10 3/uL Normal 0.83-4.51 [facility] Comment on above: Performed By: #### L 100.0100, L501.6710, L101.9900 ####[facility] [address] [place], [address] Absolute Neut 2.2 X10 3/uL Normal 2.0-7.7 [facility] Comment on above: Performed By: #### L 100.0100, L501.6710, L101.9900 ####[facility] [address] [place], [address] Basophils/100 WBC (Bld) 0.7 % Normal 0-1 [facility] Comment on above: Performed By: #### L 100.0100, L501.6710, L101.9900 ####[facility] [address] [place], [address] Eosinophils/100 WBC (Bld) 4.7 % Normal 0-5 [facility] Comment on above: Performed By: #### L 100.0100, L501.6710, L101.9900 ####[facility] [address] [place], [address] Erythrocyte distribution width (RBC) [Ratio] 13.3 % Normal 11.6-14.6 [facility] Comment on above: Performed By: #### L 100.0100, L501.6710, L101.9900 ####[facility] [address] [place], [address] Hematocrit (Bld) [Volume fraction] 37.7 % Normal 37-47 [facility] Comment on above: Performed By: #### L 100.0100, L501.6710, L101.9900 ####[facility] [address] [place], [address] Hemoglobin (Bld) [Mass/Vol] 12.5 g/dL Normal 12.0-15.0 [facility] Comment on above: Performed By: #### L 100.0100, L501.6710, L101.9900 ####[facility] [address] [place], [address] IG% 0.200 Normal 0.0-0.9 [facility] Comment on above: Result Comment: IG% - Immature Granulocytes (promyelocytes, myelocytes and metamyelocytes) > 1% indicates that a LEFT SHIFT is Present. Performed By: #### L 100.0100, L501.6710, L101.9900 ####[facility] [address] [place], [address] Lymphocytes/100 WBC (Bld) 32.3 % Normal 19-41 [facility] Comment on above: Performed By: #### L 100.0100, L501.6710, L101.9900 ####[facility] [address] [place], [address] MCH (RBC) [Entitic mass] 31.5 pg Normal 27.0-32.0 [facility] Comment on above: Performed By: #### L 100.0100, L501.6710, L101.9900 ####[facility] [address] [place], [address] MCHC (RBC) [Mass/Vol] 33.2 g/dL Normal 32-36 [facility] Comment on above: Performed By: #### L 100.0100, L501.6710, L101.9900 ####[facility] [address] [place], [address] MCV (RBC) [Entitic vol] 95.0 fL Normal 81-99 [facility] Comment on above: Performed By: #### L 100.0100, L501.6710, L101.9900 ####[facility] [address] [place], [address] Monocytes/100 WBC (Bld) 7.0 % Normal 0-10 [facility] Comment on above: Performed By: #### L 100.0100, L501.6710, L101.9900 ####[facility] [address] [place], [address] Neutrophils/100 WBC (Bld) 55.1 % Normal 47-70 [facility] Comment on above: Performed By: #### L 100.0100, L501.6710, L101.9900 ####[facility] [address] [place], [address] Nucleated RBC (Bld) [#/Vol] 0 10*3/uL Normal 0-5 [facility] Comment on above: Performed By: #### L 100.0100, L501.6710, L101.9900 ####[facility] [address] [place], [address] Platelet mean volume (Bld) [Entitic vol] 9.1 fL Normal 6.2-12.0 [facility] Comment on above: Performed By: #### L 100.0100, L501.6710, L101.9900 ####[facility] [address] [place], [address] Platelets (Bld) [#/Vol] 247 10*3/uL Normal 150-450 [facility] Comment on above: Performed By: #### L 100.0100, L501.6710, L101.9900 ####[facility] [address] [place], [address] RBC (Bld) [#/Vol] 3.97 10*6/uL Low 4.2-5.4 [facility] Comment on above: Performed By: #### L 100.0100, L501.6710, L101.9900 ####[facility] [address] [place], [address] RDW SD 47.0 fl High 35.1-43.9 [facility] Comment on above: Performed By: #### L 100.0100, L501.6710, L101.9900 ####[facility] [address] [place], [address] WBC (Bld) [#/Vol] 4.0 10*3/uL Low 4.4-11.0 [facility] Comment on above: Performed By: #### L 100.0100, L501.6710, L101.9900 ####[facility] [address] [place], [address] CRPon 01-08-2025 C-REACTIVE PROT < 3.00 Normal 0.0-3.0 [facility] Comment on above: Performed By: #### L 100.0100, L501.6710, L101.9900 ####[facility] [address] [place], [address] CRP [Mass/Vol]Ordered By: Yelena Perry on 01-08-2025 C-Reactive Protein Extended Range < 3.00 mg/L 0.0-3.0 [facility] Eosinophil percentageOrdered By: Moe Perry on 01-08-2025 Eosinophils/100 WBC (Bld) 4.7 % 0-5 [facility] Erythrocyte Sed Rateon 01-08 SED RATE 1 mm/hr Normal 0-30 [facility] Comment on above: Performed By: #### L 100.0100, L501.6710, L101.9900 ####[facility] [address] [place], [address] Erythrocyte distribution wid th (RBC) [Ratio]Ordered By: Moe Perry on 01-08-2025 Erythrocyte distribution width (RBC) [Entitic vol] 47.0 fL High 35.1-43.9 [facility] Erythrocyte distribution wid th ratioOrdered By: Moe Perry on 01-08-2025 Erythrocyte distribution width (RBC) [Ratio] 13.3 % 11.6-14.6 [facility] Erythrocyte sedimentation ra teOrdered By: Moe Perry on 01-08-2025 ESR (Bld) [Velocity] 1 mm/h 0-30 [facility] Hematocrit Auto (Bld) [Volum e fraction]Ordered By: Moe Perry on 01-08-2025 Hematocrit (Bld) [Volume fraction] 37.7 % 37-47 [facility] Hemoglobin measurementOrdere d By: Moe Perry on 01-08-2025 Hemoglobin (Bld) [Mass/Vol] 12.5 g/dL 12.0-15.0 [facility] Immature granulocytes/100 WB C Auto (Bld)Ordered By: Moe Perry on 01-08-2025 Immature granulocytes/100 WBC (Bld) 0.200 % 0.0-0.9 [facility] Comment on above: IG% - Immature Granu locytes (promyelocytes, myelocytes and metamyelocytes) > 1% indicates that a LEFT SHIFT is Present. Lymphocytes Auto (Unsp spec) [#/Vol]Ordered By: Moe Perry on 01-08-2025 Lymphocytes (Bld) [#/Vol] 1.30 10*3/uL 0.83-4.5 1 [facility] Lymphocytes/100 WBC Auto (Un sp spec)Ordered By: Moe Perry on 01-08-2025 Lymphocytes/100 WBC (Bld) 32.3 % 19-41 [facility] MCV (mean corpuscular volume ) determinationOrdered By: Moe Bolesle on 01-08-2025 MCV (RBC) [Entitic vol] 95.0 fL 81-99 [facility] Mean corpuscular hemoglobin (MCH) determinationOrdered By: Moe Bolesle on 01-08-2025 MCH (RBC) [Entitic mass] 31.5 pg 27.0-32.0 [facility] Mean corpuscular hemoglobin concentration (MCHC) determinationOrdered By: Moe Bolesle on 01-08-2025 MCHC (RBC) [Mass/Vol] 33.2 g/dL 32-36 [facility] Mean platelet volume determi nationOrdered By: Moe Perry on 01-08-2025 Platelet mean volume (Bld) [Entitic vol] 9.1 fL 6.2-12.0 [facility] Monocyte percentageOrdered B y: Moe Perry on 01-08-2025 Monocytes/100 WBC (Bld) 7.0 % 0-10 [facility] Neutrophil percentageOrdered By: Moe Perry on 01-08-2025 Neutrophils/100 WBC (Bld) 55.1 % 47-70 [facility] Nucleated red blood cell per centageOrdered By: Moe Perry on 01-08-2025 Nucleated RBC/100 WBC (Bld) [Ratio] 0 % 0-5 [facility] Platelet countOrdered By: Yelena Perry on 01-08-2025 Platelets (Bld) [#/Vol] 247 10*3/uL 150-450 [facility] RBC Auto (Bld) [#/Vol]Ordere d By: Moe Perry on 01-08-2025 RBC (Bld) [#/Vol] 3.97 10*6/uL Low 4.2-5.4 [facility] White blood cell (WBC) count Ordered By: Moe Perry on 01-08-2025 WBC (Bld) [#/Vol] 4.0 10*3/uL Low 4.4-11.0 [facility] BUN/creatinine ratioOrdered By: Dewayne Armenta on 11-27-2024 Urea nitrogen/Creatinine [Mass ratio] 15.1 mg/mg 10-20 [facility] Comment on above: Previous reported re sult: 15.2 RATIOEdited by: GALILEO on 11/27/24:1540 AMENDED REPORT 11/27/24 1540 BUN/CRE previously reported as: 15.2 RATIO Basic Metabolic Profile (BMP )on 11-27-2024 Calcium [Mass/Vol] 9.6 mg/dL Normal 7.6-11.0 [facility] Comment on above: Performed By: #### L 100.0500, L500.2500, L101.9900 #### [facility] [address] [place], [address] Chloride [Moles/Vol] 105 mmol/L Normal 98-107 [facility] Comment on above: Performed By: #### L 100.0500, L500.2500, L101.9900 #### [facility] [address] [place], [address] CO2 [Moles/Vol] 25.5 mmol/L Normal 21.0-32.0 [facility] Comment on above: Performed By: #### L 100.0500, L500.2500, L101.9900 #### [facility] [address] [place], [address] GAP 10 Normal 5-15 [facility] Comment on above: Performed By: #### L 100.0500, L500.2500, L101.9900 #### [facility] [address] [place], [address] Potassium [Moles/Vol] 3.7 mmol/L Normal 3.5-5.1 [facility] Comment on above: Performed By: #### L 100.0500, L500.2500, L101.9900 #### [facility] [address] [place], [address] Sodium [Moles/Vol] 140 mmol/L Normal 136-145 [facility] Comment on above: Performed By: #### L 100.0500, L500.2500, L101.9900 #### [facility] [address] [place], [address] CBC-Complete Blood Cnt No Di ffon 11-27-2024 Erythrocyte distribution width (RBC) [Ratio] 13.2 % Normal 11.6-14.6 [facility] Comment on above: Performed By: #### L 100.0500, L500.2500, L101.9900 #### [facility] [address] [place], [address] Hematocrit (Bld) [Volume fraction] 33.5 % Low 37-47 [facility] Comment on above: Performed By: #### L 100.0500, L500.2500, L101.9900 #### [facility] [address] [place], [address] Hemoglobin (Bld) [Mass/Vol] 10.9 g/dL Low 12.0-15.0 [facility] Comment on above: Performed By: #### L 100.0500, L500.2500, L101.9900 #### [facility] [address] [place], [address] MCH (RBC) [Entitic mass] 31.3 pg Normal 27.0-32.0 [facility] Comment on above: Performed By: #### L 100.0500, L500.2500, L101.9900 #### [facility] [address] [place], [address] MCHC (RBC) [Mass/Vol] 32.5 g/dL Normal 32-36 [facility] Comment on above: Performed By: #### L 100.0500, L500.2500, L101.9900 #### [facility] [address] [place], [address] MCV (RBC) [Entitic vol] 96.3 fL Normal 81-99 [facility] Comment on above: Performed By: #### L 100.0500, L500.2500, L101.9900 #### [facility] [address] [place], [address] Platelet mean volume (Bld) [Entitic vol] 8.7 fL Normal 6.2-12.0 [facility] Comment on above: Performed By: #### L 100.0500, L500.2500, L101.9900 #### [facility] [address] [place], [address] Platelets (Bld) [#/Vol] 314 10*3/uL Normal 150-450 [facility] Comment on above: Performed By: #### L 100.0500, L500.2500, L101.9900 #### [facility] [address] [place], [address] RBC (Bld) [#/Vol] 3.48 10*6/uL Low 4.2-5.4 [facility] Comment on above: Performed By: #### L 100.0500, L500.2500, L101.9900 #### [facility] [address] [place], [address] RDW SD 45.7 fl High 35.1-43.9 [facility] Comment on above: Performed By: #### L 100.0500, L500.2500, L101.9900 #### [facility] [address] [place], [address] WBC (Bld) [#/Vol] 6.2 10*3/uL Normal 4.4-11.0 [facility] Comment on above: Performed By: #### L 100.0500, L500.2500, L101.9900 #### [facility] [address] [place], [place], [address] Creatinine [Moles/Vol]Ordere d By: Dewayne Armenta on 11-27-2024 Creatinine [Mass/Vol] 0.7 mg/dL 0.6-1.0 [facility] Erythrocyte Sed Rateon 11-27 SED RATE 30 mm/hr Normal 0-30 [facility] Comment on above: Performed By: #### L 100.0500, L500.2500, L101.9900 #### [facility] [address] [place], [place], [address] Erythrocyte distribution wid th (RBC) [Ratio]Ordered By: Dewayne Armenta on 11-27-2024 Erythrocyte distribution width (RBC) [Entitic vol] 45.7 fL High 35.1-43.9 [facility] Erythrocyte distribution wid th ratioOrdered By: Dewayne Armenta on 11-27-2024 Erythrocyte distribution width (RBC) [Ratio] 13.2 % 11.6-14.6 [facility] Erythrocyte sedimentation ra teOrdered By: Dewayne Armenta on 11-27-2024 ESR (Bld) [Velocity] 30 mm/h 0-30 [facility] GFR/1.73 sq M.predicted camila g non-blacks MDRD (S/P/Bld) [Vol rate/Area]Ordered By: Dewayne Armenta on 11-27-2024 Estimated GFR (MDRD) Non-Af Amer 99 >60 [facility] Comment on above: mL/min/1.73m2 CKD-EP I Creatinine Equation (2020) Hematocrit Auto (Bld) [Volum e fraction]Ordered By: Dewayne Armenta on 11-27-2024 Hematocrit (Bld) [Volume fraction] 33.5 % Low 37-47 [facility] Hemoglobin measurementOrdere d By: Dewayne Armenta on 11-27-2024 Hemoglobin (Bld) [Mass/Vol] 10.9 g/dL Low 12.0-15.0 [facility] MCV (mean corpuscular volume ) determinationOrdered By: Dewayne Armenta on 11-27-2024 MCV (RBC) [Entitic vol] 96.3 fL 81-99 [facility] Mean corpuscular hemoglobin (MCH) determinationOrdered By: Dewayne Armenta on 11-27-2024 MCH (RBC) [Entitic mass] 31.3 pg 27.0-32.0 [facility] Mean corpuscular hemoglobin concentration (MCHC) determinationOrdered By: Dewayne Armenta on 11-27-2024 MCHC (RBC) [Mass/Vol] 32.5 g/dL 32-36 [facility] Mean platelet volume determi nationOrdered By: Dewayne Armenta on 11-27-2024 Platelet mean volume (Bld) [Entitic vol] 8.7 fL 6.2-12.0 [facility] Platelet countOrdered By: Florinda Armenta on 11-27-2024 Platelets (Bld) [#/Vol] 314 10*3/uL 150-450 [facility] Potassium measurementOrdered By: Dewayne Armenta on 11-27-2024 Potassium [Moles/Vol] 3.7 mmol/L 3.5-5.1 [facility] RBC Auto (Bld) [#/Vol]Ordere d By: Dewayne Armenta on 11-27-2024 RBC (Bld) [#/Vol] 3.48 10*6/uL Low 4.2-5.4 [facility] Serum anion gap measurementO rdered By: Dewayne Armenta on 11-27-2024 Anion gap [Moles/Vol] 10 mmol/L 5-15 [facility] Serum glucose measurement (m ass/volume)Ordered By: Dewayne Armenta on 11-27-2024 Glucose [Mass/Vol] 118 mg/dL High 70-99 [facility] Comment on above: Previous reported re sult: 117 mg/dLEdited by: AUTOINS on 11/27/24:1540 AMENDED REPORT 11/27/24 1540 GLU previously reported as: 117 H mg/dL Serum or plasma calcium lida urement (mass/volume)Ordered By: Dewayne Armenta on 11-27-2024 Calcium [Mass/Vol] 9.6 mg/dL 7.6-11.0 [facility] Serum or plasma carbon dioxi de measurement (moles/volume)Ordered By: Dewayne Armenta on 11-27-2024 CO2 [Moles/Vol] 25.5 mmol/L 21.0-32.0 [facility] Serum or plasma chloride gianna surement (moles/volume)Ordered By: Dewayne Armenta on 11-27-2024 Chloride [Moles/Vol] 105 mmol/L 98-107 [facility] Serum or plasma urea nitroge n measurement (mass/volume)Ordered By: Dewayne Armenta on 11-27-2024 Urea nitrogen [Mass/Vol] 10 mg/dL 4-19 [facility] Sodium levelOrdered By: Jefry Armenta on 11-27-2024 Sodium [Moles/Vol] 140 mmol/L 136-145 [facility] White blood cell (WBC) count Ordered By: Dewayne Armenta on 11-27-2024 WBC (Bld) [#/Vol] 6.2 10*3/uL 4.4-11.0 [facility] Automated blood erythrocyte countOrdered By: Dewayne Armenta on 11-20-2024 RBC (Bld) [#/Vol] 3.36 10*6/uL Low 4.2-5.4 [facility] Comment on above: Performed By: #### L 500.2500, L100.0500, L101.9900 ####[facility] [address] [facility] [address] Automated blood hematocrit ( percentage)Ordered By: Dewayne Armenta on 11-20-2024 Hematocrit (Bld) [Volume fraction] 32.2 % Low 37-47 [facility] Comment on above: Performed By: #### L 500.2500, L100.0500, L101.9900 ####[facility] [address] [place], [address] Basic Metabolic Profile (BMP )on 11-20-2024 BUN/CRE 9.9 RATIO Low 10-20 [facility] Comment on above: Performed By: #### L 500.2500, L100.0500, L101.9900 ####[facility] [address] [place], [address] CA,Total 9.6 mg/dL Normal 8.5-10.1 [facility] Comment on above: Performed By: #### L 500.2500, L100.0500, L101.9900 ####[facility] [address] [place], [address] Chloride [Moles/Vol] 106 mmol/L Normal 98-107 [facility] Comment on above: Performed By: #### L 500.2500, L100.0500, L101.9900 ####[facility] [address] [place], [address] CO2 [Moles/Vol] 28.0 mmol/L Normal 21.0-32.0 [facility] Comment on above: Performed By: #### L 500.2500, L100.0500, L101.9900 ####[facility] [address] [place], [address] Creatinine [Mass/Vol] 0.71 mg/dL Normal 0.55-1.02 [facility] Comment on above: Result Comment: The validity of the calculated GFR GFRAA in patients over 70 years has not been determined. Clinical correlation is essential. Performed By: #### L 500.2500, L100.0500, L101.9900 ####[facility] [address] [place], [address] EST GFR - AA 108 mL/min Normal >60 [facility] Comment on above: Result Comment: Afri can Estonian GFR Calc Performed By: #### L 500.2500, L100.0500, L101.9900 ####[facility] [address] [place], [address] GAP 6 Normal 5-15 [facility] Comment on above: Performed By: #### L 500.2500, L100.0500, L101.9900 ####[facility] [address] [place], [address] GFR/1.73 sq M.predicted among non-blacks MDRD (S/P/Bld) [Vol rate/Area] 89 mL/min/{1.73_m2} Normal >60 [facility] Comment on above: Result Comment: Non- GFR Calc Performed By: #### L 500.2500, L100.0500, L101.9900 ####[facility] [address] [place], [address] Glucose [Mass/Vol] 107 mg/dL High 74-106 [facility] Comment on above: Result Comment: Fast ing Glucose result from 100 to 125 mg/dL suggests IMPAIRED HOMEOSTASIS per A.D.A. criteria. Performed By: #### L 500.2500, L100.0500, L101.9900 ####[facility] [address] [place], [address] Potassium [Moles/Vol] 3.5 mmol/L Normal 3.5-5.1 [facility] Comment on above: Performed By: #### L 500.2500, L100.0500, L101.9900 ####[facility] [address] [place], [address] Sodium [Moles/Vol] 140 mmol/L Normal 136-145 [facility] Comment on above: Performed By: #### L 500.2500, L100.0500, L101.9900 ####[facility] [address] [place], [address] Urea nitrogen [Mass/Vol] 7 mg/dL Normal 7-18 [facility] Comment on above: Performed By: #### L 500.2500, L100.0500, L101.9900 ####[facility] [address] [place], [address] Blood urea nitrogen (BUN)/cr eatinine ratioOrdered By: Dewayne Armenta on 11-20-2024 Urea nitrogen/Creatinine [Mass ratio] 9.9 mg/mg Low 10-20 [facility] CBC-Complete Blood Cnt No Di ffon 11-20-2024 RDW SD 44.3 fl High 35.1-43.9 [facility] Comment on above: Performed By: #### L 500.2500, L100.0500, L101.9900 ####[facility] [address] [place], [address] Carbon dioxide measurementOr dered By: Dewayne Armenta on 11-20-2024 CO2 [Moles/Vol] 28.0 mmol/L 21.0-32.0 [facility] Chloride measurementOrdered By: Dewayne Armenta on 11-20-2024 Chloride [Moles/Vol] 106 mmol/L 98-107 [facility] Culture, Blood (WB)on 2024 CUB No growth in 5 days. Normal [facility] Comment on above: Performed By: #### M 200.1000 ####[facility] [address] [place], [address] Erythrocyte Sed Rateon 11-20 SED RATE 51 mm/hr High 0-30 [facility] Comment on above: Performed By: #### L 500.2500, L100.0500, L101.9900 ####[facility] [address] [place], [address] Erythrocyte distribution wid th (RBC) [Ratio]Ordered By: Dewayne Armenta on 11-20-2024 Erythrocyte distribution width (RBC) [Entitic vol] 44.3 fL High 35.1-43.9 [facility] Erythrocyte distribution wid th ratioOrdered By: Dewayne Amrenta on 11-20-2024 Erythrocyte distribution width (RBC) [Ratio] 12.8 % Normal 11.6-14.6 [facility] Comment on above: Performed By: #### L 500.2500, L100.0500, L101.9900 ####[facility] [address] [place], [address] Erythrocyte sedimentation ra teOrdered By: Dewayne Armenta on 11-20-2024 ESR (Bld) [Velocity] 51 mm/h High 0-30 [facility] Estimated glomerular filtrat ion rate (GFR) AmericanOrdered By: Dewayne Armenta on 11-20-2024 Estimated GFR (MDRD) Amer 108 mL/min >60 [facility] Comment on above: GFR Calc Glomerular filtration rate ( GFR) estimationOrdered By: Dewayne Armenta on 11-20-2024 Estimated GFR (MDRD) Non-Af Amer 89 mL/min >60 [facility] Comment on above: Non- GFR Calc Glucose measurementOrdered B y: Dewayne Armenta on 11-20-2024 Glucose [Mass/Vol] 107 mg/dL High 74-106 [facility] Comment on above: Fasting Glucose resu lt from 100 to 125 mg/dL suggests IMPAIRED HOMEOSTASIS per A.D.A. criteria. Hemoglobin measurementOrdere d By: Dewayne Armenta on 11-20-2024 Hemoglobin (Bld) [Mass/Vol] 10.4 g/dL Low 12.0-15.0 [facility] Comment on above: Performed By: #### L 500.2500, L100.0500, L101.9900 ####[facility] [address] [place], [place], [address] MCV (mean corpuscular volume ) determinationOrdered By: Dewayne Armenta on 11-20-2024 MCV (RBC) [Entitic vol] 95.8 fL Normal 81-99 [facility] Comment on above: Performed By: #### L 500.2500, L100.0500, L101.9900 ####[facility] [address] [place], [address] Mean corpuscular hemoglobin (MCH) determinationOrdered By: Dewayne Armenta on 11-20-2024 MCH (RBC) [Entitic mass] 31.0 pg Normal 27.0-32.0 [facility] Comment on above: Performed By: #### L 500.2500, L100.0500, L101.9900 ####[facility] [address] [place], [address] Mean corpuscular hemoglobin concentration (MCHC) determinationOrdered By: Dewayne Armenta on 11-20-2024 MCHC (RBC) [Mass/Vol] 32.3 g/dL Normal 32-36 [facility] Comment on above: Performed By: #### L 500.2500, L100.0500, L101.9900 ####[facility] [address] [place], [address] Mean platelet volume determi nationOrdered By: Dewayne Armenta on 11-20-2024 Platelet mean volume (Bld) [Entitic vol] 8.7 fL Normal 6.2-12.0 [facility] Comment on above: Performed By: #### L 500.2500, L100.0500, L101.9900 ####[facility] [address] [place], [address] Platelet countOrdered By: Florinda Armenta on 11-20-2024 Platelets (Bld) [#/Vol] 376 10*3/uL Normal 150-450 [facility] Comment on above: Performed By: #### L 500.2500, L100.0500, L101.9900 ####[facility] [address] [place], [address] Potassium measurementOrdered By: Dewayne Armenta on 11-20-2024 Potassium [Moles/Vol] 3.5 mmol/L 3.5-5.1 [facility] Serum anion gap measurementO rdered By: Dewayne Armenta on 11-20-2024 Anion gap [Moles/Vol] 6 mmol/L 5-15 [facility] Serum or plasma calcium lida urement (mass/volume)Ordered By: Dewayne Armenta on 11-20-2024 Calcium [Mass/Vol] 9.6 mg/dL 8.5-10.1 [facility] Serum or plasma creatinine m easurement (mass/volume)Ordered By: Dewayne Armenta on 11-20-2024 Creatinine [Mass/Vol] 0.71 mg/dL 0.55-1.02 [facility] Comment on above: The validity of the calculated GFR & GFRAA in patients over 70 years has not been determined. Clinical correlation is essential. Serum or plasma urea nitroge n measurement (mass/volume)Ordered By: Dewayne Armenta on 11-20-2024 Urea nitrogen [Mass/Vol] 7 mg/dL 7-18 [facility] Sodium levelOrdered By: Jefry Armenta on 11-20-2024 Sodium [Moles/Vol] 140 mmol/L 136-145 [facility] White blood cell (WBC) count Ordered By: Dewayne Armenta on 11-20-2024 WBC (Bld) [#/Vol] 5.7 10*3/uL Normal 4.4-11.0 [facility] Comment on above: Performed By: #### L 500.2500, L100.0500, L101.9900 ####[facility] [address] [place], [place], [address] Body Fluid Culton 11-18-2024 [facility] UNK UNK RESULTS CALLED TO JONATHAN Stephenson 11/14/24 1057 Flor Lockett. REPORT READ BACK . Copy of report sent to Infection Control Printer MS#[id number] 11/14/24 Olu RAMEY. Body Fluid Cult Body Fluid Cult Staphylococcus aureus Amount Growth Very Rare Staphylococcus aureus: REACTION cefOXitin Susc Islt Doxycycline Islt CHELSEA <=0.5 S Clindamycin Islt CHELSEA <=0.12 S Clindamycin.induced Susc Islt NEG Erythromycin Islt CHELSEA <=0.25 S Gentamicin Islt CHELSEA <=0.5 S Linezolid Islt CHELSEA 2 S Moxifloxacin Islt CHELSEA <=0.25 S Oxacillin Susc Islt <=0.25 S Tetracycline Islt CHELSEA <=1 S TMP SMX Islt CHELSEA <=10 S Vancomycin Islt CHELSEA <=0.5 S Normal [facility] Comment on above: Performed By: #### M 100.2000, L101.9900, M100.4001, L100.0100, L501.6710, M100.2900 ####[facility] [address] [place], [address] Culture, Anaerobic Any Sourc pan 11-17-2024 CUAN UNK UNK No anaerobic bacteria isolated. Normal [facility] Comment on above: Performed By: #### M 100.2000, L101.9900, M100.4001, L100.0100, L501.6710, M100.2900 ####[facility] [address] [place], [address] Discharge Instructionon 11-03 Discharge Instruction [facility] Medical Records Department [address] [place] [address] Instructions for Home/Discharge Instructions 11/16/24 1442 MR#: [id number] Acct: [id number] Name: JEFFREY GOULD Rep #: [id number] : 1960 64 From: Moe Perry DO PCP: Dr. Kevin Vo MD Status:ADM IN Discharge Instructions Diet Discharge Diet: No restrictions DC O2, CPAP, BIPAP needs Home O2 Discharge instructions: No Dressing / Incision Discharge Activity: May Not Drive (2 weeks postoperatively) May shower in (days): 1 Ice area for (Minutes): 20 Weight Bearing Status: Weight bearing as tolerated Lifting Restrictions: No lifting more than 5 pounds with the operative extremity Dressing / Incision Call your doctor if your incision/area has: Sudden Increased Bleeding, Increased Redness and Foul Smelling Discharge Call your doctor if you observe: Fever of 101 or Higher, Shortness of breath and Chest pain Change Dressing in: 1 day (Change dressing as needed. Okay to leave open to air if no drainage after postoperative day #2) Cleanse incision/area with: Soap Water Follow Up Care Please Follow Up With: Moe Perry DO When: 2 weeks Discharge Plan Admission Admit Date/Time: 11/14/24 20:13 Primary Reason for Your Visit: Right shoulder infection Attending Provider: Moe Perry Primary Care Provider: Kevin Vo Consulting Providers: Dewayne Armenta; Jose Antonio Saez Discharge Orders/Prescription s Prescriptions: New cefazolin 2 gram recon soln 2 g IV Q8H 12 Days Rx Instructions: stop date 11/28/24. Dx: mssa septic arthritis. Weekly bmp, cbc, and ESR. Fax to [phone]. Routine picc care per protocol. aspirin 81 mg Tablet,Chewable 81 mg PO BID 14 Days Qty: 28 0RF acetaminophen 500 mg Tablet 1,000 mg PO Q8 7 Days Qty: 42 0RF Continued gabapentin 300 mg capsule 300 mg PO BID oxaprozin 600 mg tablet 1,200 mg PO DAILY rosuvastatin 5 mg tablet 5 mg PO DAILY cyclobenzaprine 5 mg tablet 5 mg PO QHS Discontinued doxycycline hyclate 100 mg tablet 100 mg PO BID Referrals / Follow Up: Moe Perry DO [Med Staff - Active Staff] - Within 2 Weeks Kevin Vo MD [Primary Care Provider] - Dewayne Armenta MD [Med Staff - Active Staff] - Disposition Disposition (needs filled in before D/C Order can be placed): Home Health Service 11/19/24 1233 Moe Perry DO CC: Dr. Kevin Vo MD; Dr. Jose Antonio Saez MD; Dr. Dewayne Armenta MD Signed Normal [facility] 12 Lead EKGon 11-15-2024 12 Lead EKG [facility] Cardiovascular Services [address] [place] [address] 12 Lead EKG 11/15/24 1116 MR#: [id number] Acct: [id number] Name: JEFFREY GOULD Rep #: [id number] : 1960 64 From: Shila Flores MD Attending Dr: Dr. Moe Perry DO Status: ADM IN Ordering Dr: Moe Perry DO Date: 11/15/24 Location: AL3 Sex: F C Admitted: 11/14/24 Test Reason : PRE OP Blood Pressure : */* mmHG Vent. Rate : 82 BPM Atrial Rate : 82 BPM P-R Int : 132 ms QRS Dur : 96 ms QT Int : 394 ms P-R-T Axes : 33 5 -6 degrees QTcB Int : 460 ms Normal sinus rhythm Low voltage QRS Incomplete right bundle branch block Nonspecific T wave abnormality Abnormal ECG No previous ECGs available Confirmed by MARK GABRIELGUANACO ([id number]), food editor MARC GILLIAM ([id number]) on 11/16/2024 1:08:32 PM Referred By: Moe Perry Confirmed By: GUANACO FLORES MD 11/16/24 1308 Date Shila Flores MD CC: Dr. Moe Perry, DO; Dr. Kevin Vo MD Signed Normal [facility] Absolute neutrophil countOrd ered By: Moe Perry on 11-15-2024 Neutrophils (Bld) [#/Vol] 3.1 10*3/uL 2.0-7.7 [facility] Albumin to globulin ratioOrd ered By: Moe Perry on 11-15-2024 Albumin/Globulin [Mass ratio] 0.6 {ratio} Low 0.9-2.4 [facility] Basophil percentageOrdered B y: Moe Perry on 11-15-2024 Basophils/100 WBC (Bld) 0.4 % 0-1 [facility] Bilirubin, totalOrdered By: Moe Perry on 11-15-2024 Bilirubin [Mass/Vol] 0.30 mg/dL 0.20-1.00 [facility] Comment on above: For patients on eltr ombopag therapy, use of Dimension [place] TBIL is not recommended. Blood cultureOrdered By: Justen Armenta on 11-15-2024 Bacteria identified Cx Nom (Bld) No growth in 5 days. [facility] Bacteria identified Cx Nom (Bld) No growth in 5 days. [facility] Blood urea nitrogen (BUN)/cr eatinine ratioOrdered By: Moe Perry on 11-15-2024 Urea nitrogen/Creatinine [Mass ratio] 17.5 mg/mg 10-20 [facility] CBC W/Diff, Automatedon 11-03 Absolute Lymph 1.24 X10 3/uL Normal 0.83-4.51 [facility] Comment on above: Performed By: #### L 500.4050, L100.0100 ####[facility] [address] [place], [address] Absolute Neut 3.1 X10 3/uL Normal 2.0-7.7 [facility] Comment on above: Performed By: #### L 500.4050, L100.0100 ####[facility] [address] [place], [address] Basophils/100 WBC (Bld) 0.4 % Normal 0-1 [facility] Comment on above: Performed By: #### L 500.4050, L100.0100 ####[facility] [address] [place], [address] Eosinophils/100 WBC (Bld) 3.5 % Normal 0-5 [facility] Comment on above: Performed By: #### L 500.4050, L100.0100 ####[facility] [address] [place], [address] Erythrocyte distribution width (RBC) [Ratio] 13.2 % Normal 11.6-14.6 [facility] Comment on above: Performed By: #### L 500.4050, L100.0100 ####[facility] [address] [place], [address] Hematocrit (Bld) [Volume fraction] 29.3 % Low 37-47 [facility] Comment on above: Performed By: #### L 500.4050, L100.0100 ####[facility] [address] [place], [address] Hemoglobin (Bld) [Mass/Vol] 9.5 g/dL Low 12.0-15.0 [facility] Comment on above: Performed By: #### L 500.4050, L100.0100 ####[facility] [address] [place], [address] IG% 0.200 Normal 0.0-0.9 [facility] Comment on above: Result Comment: IG% - Immature Granulocytes (promyelocytes, myelocytes and metamyelocytes) > 1% indicates that a LEFT SHIFT is Present. Performed By: #### L 500.4050, L100.0100 ####[facility] [address] [place], [address] Lymphocytes/100 WBC (Bld) 25.2 % Normal 19-41 [facility] Comment on above: Performed By: #### L 500.4050, L100.0100 ####[facility] [address] [place], [address] MCH (RBC) [Entitic mass] 31.0 pg Normal 27.0-32.0 [facility] Comment on above: Performed By: #### L 500.4050, L100.0100 ####[facility] [address] [place], [address] MCHC (RBC) [Mass/Vol] 32.4 g/dL Normal 32-36 [facility] Comment on above: Performed By: #### L 500.4050, L100.0100 ####[facility] [address] [place], [address] MCV (RBC) [Entitic vol] 95.8 fL Normal 81-99 [facility] Comment on above: Performed By: #### L 500.4050, L100.0100 ####[facility] [address] [place], [address] Monocytes/100 WBC (Bld) 7.7 % Normal 0-10 [facility] Comment on above: Performed By: #### L 500.4050, L100.0100 ####[facility] [address] [place], [address] Neutrophils/100 WBC (Bld) 63.0 % Normal 47-70 [facility] Comment on above: Performed By: #### L 500.4050, L100.0100 ####[facility] [address] [place], [address] Nucleated RBC (Bld) [#/Vol] 0 10*3/uL Normal 0-5 [facility] Comment on above: Performed By: #### L 500.4050, L100.0100 ####[facility] [address] [place], [address] Platelet mean volume (Bld) [Entitic vol] 8.4 fL Normal 6.2-12.0 [facility] Comment on above: Performed By: #### L 500.4050, L100.0100 ####[facility] [address] [place], [address] Platelets (Bld) [#/Vol] 466 10*3/uL High 150-450 [facility] Comment on above: Performed By: #### L 500.4050, L100.0100 ####[facility] [address] [place], [address] RBC (Bld) [#/Vol] 3.06 10*6/uL Low 4.2-5.4 [facility] Comment on above: Performed By: #### L 500.4050, L100.0100 ####[facility] [address] [place], [address] RDW SD 47.4 fl High 35.1-43.9 [facility] Comment on above: Performed By: #### L 500.4050, L100.0100 ####[facility] [address] [place], [address] WBC (Bld) [#/Vol] 4.9 10*3/uL Normal 4.4-11.0 [facility] Comment on above: Performed By: #### L 500.4050, L100.0100 ####[facility] [address] [place], [address] Carbon dioxide measurementOr dered By: Moe Perry on 11-15-2024 CO2 [Moles/Vol] 26.0 mmol/L 21.0-32.0 [facility] Chloride measurementOrdered By: Moe Perry on 11-15-2024 Chloride [Moles/Vol] 110 mmol/L High 98-107 [facility] Comprehensive Metabolic Prof ilon 11-15-2024 Albumin [Mass/Vol] 2.2 g/dL Low 3.2-5.0 [facility] Comment on above: Performed By: #### L 500.4050, L100.0100 ####[facility] [address] [place], [address] Albumin/Globulin [Mass ratio] 0.6 {ratio} Low 0.9-2.4 [facility] Comment on above: Performed By: #### L 500.4050, L100.0100 ####[facility] [address] [place], [address] ALK P 96 U/L Normal 45-117 [facility] Comment on above: Performed By: #### L 500.4050, L100.0100 ####[facility] [address] [place], [address] ALT [Catalytic activity/Vol] 14 U/L Normal 13-56 [facility] Comment on above: Performed By: #### L 500.4050, L100.0100 ####[facility] [address] [place], [address] AST [Catalytic activity/Vol] 18 U/L Normal 15-37 [facility] Comment on above: Performed By: #### L 500.4050, L100.0100 ####[facility] [address] [place], [address] Bilirubin [Mass/Vol] 0.30 mg/dL Normal 0.20-1.00 [facility] Comment on above: Result Comment: For patients on eltrombopag therapy, use of Dimension [place] TBIL is not recommended. Performed By: #### L 500.4050, L100.0100 ####[facility] [address] [place], [address] BUN/CRE 17.5 RATIO Normal 10-20 [facility] Comment on above: Performed By: #### L 500.4050, L100.0100 ####[facility] [address] [place], [address] CA,Total 8.8 mg/dL Normal 8.5-10.1 [facility] Comment on above: Performed By: #### L 500.4050, L100.0100 ####[facility] [address] [place], [address] Chloride [Moles/Vol] 110 mmol/L High 98-107 [facility] Comment on above: Performed By: #### L 500.4050, L100.0100 ####[facility] [address] [place], [address] CO2 [Moles/Vol] 26.0 mmol/L Normal 21.0-32.0 [facility] Comment on above: Performed By: #### L 500.4050, L100.0100 ####[facility] [address] [place], [address] Creatinine [Mass/Vol] 0.69 mg/dL Normal 0.55-1.02 [facility] Comment on above: Result Comment: The validity of the calculated GFR GFRAA in patients over 70 years has not been determined. Clinical correlation is essential. Performed By: #### L 500.4050, L100.0100 ####[facility] [address] [place], [address] ECRCL 80.79 ml/min Normal [facility] Comment on above: Performed By: #### L 500.4050, L100.0100 ####[facility] [address] [place], [address] EST GFR - AA 111 mL/min Normal >60 [facility] Comment on above: Result Comment: Afri can Estonian GFR Calc Performed By: #### L 500.4050, L100.0100 ####[facility] [address] [place], [address] GAP 6 Normal 5-15 [facility] Comment on above: Performed By: #### L 500.4050, L100.0100 ####[facility] [address] [place], [address] GFR/1.73 sq M.predicted among non-blacks MDRD (S/P/Bld) [Vol rate/Area] 92 mL/min/{1.73_m2} Normal >60 [facility] Comment on above: Result Comment: Non- GFR Calc Performed By: #### L 500.4050, L100.0100 ####[facility] [address] [place], [address] Globulin (S) [Mass/Vol] 3.7 g/dL Normal 2.2-4.2 [facility] Comment on above: Performed By: #### L 500.4050, L100.0100 ####[facility] [address] [place], [address] Glucose [Mass/Vol] 100 mg/dL Normal 74-106 [facility] Comment on above: Result Comment: Fast ing Glucose result from 100 to 125 mg/dL suggests IMPAIRED HOMEOSTASIS per A.D.A. criteria. Performed By: #### L 500.4050, L100.0100 ####[facility] [address] [place], [address] Potassium [Moles/Vol] 3.6 mmol/L Normal 3.5-5.1 [facility] Comment on above: Performed By: #### L 500.4050, L100.0100 ####[facility] [address] [place], [address] Sodium [Moles/Vol] 142 mmol/L Normal 136-145 [facility] Comment on above: Performed By: #### L 500.4050, L100.0100 ####[facility] [address] [place], [address] T PROT 5.9 g/dL Low 6.4-8.2 [facility] Comment on above: Performed By: #### L 500.4050, L100.0100 ####[facility] [address] [place], [address] Urea nitrogen [Mass/Vol] 12 mg/dL Normal 7-18 [facility] Comment on above: Performed By: #### L 500.4050, L100.0100 ####[facility] [address] [place], [address] Consultation - Infectious Dx on 11-15-2024 Consultation - Infectious Dx [facility] Medical Records Department [address] [place] [address] Consultation - Infectious Dx 11/15/24 1025 MR#: [id number] Acct: [id number] Name: JEFFREY GOULD Rep #: [id number] : 1960 64 From: Dewayne Armenta MD PCP: Dr. Kevin Vo MD Status:ADM IN Location: [address] Assessment Plan Assessment/Plan (1) Septic arthritis of shoulder, right: QUALIFIERS: Septic arthritis organism: staphylococcal Qualified Code(s): M00.011 - Staphylococcal arthritis, right shoulder PLAN: Aspiration with staph aureus. Will check bcx x2, add vanc. Cont ceftriaxone. Surgery planned. Will follow, thank you HPI Consult Data Date of Consult: 11/15/24 HPI Narrative Reason for Consultation: septic arthritis HPI Narrative: JEFFREY GOULD, is a 64 F who had R shoulder rotator cuff repair with biceps tenodesis in 07/2024. Did well postop until 2-3 weeks ago. Lifted a heavy grocery bag, and next day had progressive R shoulder pain, fever, chills. Saw PCP, given azithro with no improvement. Tmax 100.8. Over past 5 days, new redness, swelling, warmth in R shoulder. Saw Dr. Perry, aspiration done, admitted on cefazolin. Full ROS performed and neg except as noted above. PFSH Medical History Rotator cuff tear Spinal cord tumor High cholesterol Anemia Former smoker Home Medications ???Medication ???Instructions ???Recorded ???Last Taken ???Type cyclobenzaprine 5 mg tablet 5 mg PO QHS 11/14/24 Unknown Histo ry doxycycline hyclate 100 mg tablet 100 mg PO BID 11/14/24 Unknown Hi story gabapentin 300 mg capsule 300 mg PO BID 11/14/24 Unknown His tory oxaprozin 600 mg tablet 1,200 mg PO DAILY 11/14/24 Unknown History rosuvastatin 5 mg tablet 5 mg PO DAILY 11/14/24 Unknown His tory Allergy/AdvReac Type Severity Reaction Status Date / Time tramadol Allergy Swelling Verified 11/14/24 20:00 Surgical History (Updated 11/14/24 @ 20:22 by Leilani Bryant) Tubal ligation status H/O hernia repair S/P hysterectomy Social History Smoking Status: Former smoker Physical Exam Const alert, oriented x3 and no apparent distress General Appearance: cooperative HEENT normocephalic and head/scalp atraumatic Eyes PERRL and EOMs intact bilaterally Neck supple and No nodes Resp normal air movement and clear to auscultation bilaterally Cardio regular rate, regular rhythm and no murmurs GI soft to palpation, non-tender and non-distended Extremity Extremity Narrative: R shoulder limited ROM due to pain Skin Skin Narrative: R shoulder focal swelling, redness, tenderness. No splinter hemorrhages on fingers Neuro CN's II-XII intact bilaterally Lab / Micro Data Attestation: I reviewed the patient's lab results. 11/15/24 05:07 11/15/24 05:07 Labs: Laboratory Results - last 24 hr 11/15/24 05:07: WBC 4.9, RBC 3.06 L, Hgb 9.5 L, Hct 29.3 L, MCV 95.8, MCH 31.0, MCHC 32.4 D, RDW Std Deviation 47.4 H, RDW Coeff of Shanae 13.2, Plt Count 466 H, MPV 8.4, Immature Gran % (Auto) 0.200, Neut % (Auto) 63.0, Lymph % (Auto) 25.2, [place] % (Auto) 7.7, Eos % (Auto) 3.5, Baso % (Auto) 0.4, Absolute Neuts (auto) 3.1, Absolute Lymphs (auto) 1.24, Nucleated RBC % 0, Sodium 142, Potassium 3.6, Chloride 110 H, Carbon Dioxide 26.0, Anion Gap 6, BUN 12, Creatinine 0.69, Estim Creat Clear Calc 80.79, Est GFR (MDRD) Af Amer 111, Est GFR (MDRD) Non-Af 92, BUN/Creatinine Ratio 17.5, Glucose 100, Calcium 8.8, Total Bilirubin 0.30, AST 18, ALT 14, Alkaline Phosphatase 96, Total Protein 5.9 L , Albumin 2.2 L, Globulin 3.7, Albumin/Globulin Ratio 0.6 L 11/15/24 1030 Cosigner Signature (if applicable): CC: Dr. Moe Perry DO; Dr. Kevin Vo MD Signed Normal [facility] Eosinophil percentageOrdered By: Moe Perry on 11-15-2024 Eosinophils/100 WBC (Bld) 3.5 % 0-5 [facility] Erythrocyte distribution wid th (RBC) [Ratio]Ordered By: Moe Perry on 11-15-2024 Erythrocyte distribution width (RBC) [Entitic vol] 47.4 fL High 35.1-43.9 [facility] Erythrocyte distribution wid th ratioOrdered By: Moe Perry on 11-15-2024 Erythrocyte distribution width (RBC) [Ratio] 13.2 % 11.6-14.6 [facility] Estimated glomerular filtrat ion rate (GFR) AmericanOrdered By: Moe Perry on 11-15-2024 Estimated GFR (MDRD) Amer 111 mL/min >60 [facility] Comment on above: GFR Calc Estimation of creatinine sadaf aranceOrdered By: Moe Perry on 11-15-2024 Estimated Creatinine Clearance Calc 80.79 ml/min [facility] Glomerular filtration rate ( GFR) estimationOrdered By: Moe Perry on 11-15-2024 Estimated GFR (MDRD) Non-Af Amer 92 mL/min >60 [facility] Comment on above: Non- GFR Calc Glucose measurementOrdered B y: Moe Perry on 11-15-2024 Glucose [Mass/Vol] 100 mg/dL 74-106 [facility] Comment on above: Fasting Glucose resu lt from 100 to 125 mg/dL suggests IMPAIRED HOMEOSTASIS per A.D.A. criteria. Hematocrit Auto (Bld) [Volum e fraction]Ordered By: Moe Perry on 11-15-2024 Hematocrit (Bld) [Volume fraction] 29.3 % Low 37-47 [facility] Hemoglobin measurementOrdere d By: Moe Perry on 11-15-2024 Hemoglobin (Bld) [Mass/Vol] 9.5 g/dL Low 12.0-15.0 [facility] Immature granulocytes/100 WB C Auto (Bld)Ordered By: Moe Perry on 11-15-2024 Immature granulocytes/100 WBC (Bld) 0.200 % 0.0-0.9 [facility] Comment on above: IG% - Immature Granu locytes (promyelocytes, myelocytes and metamyelocytes) > 1% indicates that a LEFT SHIFT is Present. Laboratory - Chemistry and C hemistry - challengeOrdered By: Moe Perry on 11-15-2024 AST [Catalytic activity/Vol] 18 U/L 15-37 [facility] Lymphocytes Auto (Unsp spec) [#/Vol]Ordered By: Moe Perry on 11-15-2024 Lymphocytes (Bld) [#/Vol] 1.24 10*3/uL 0.83-4.5 1 [facility] Lymphocytes/100 WBC Auto (Un sp spec)Ordered By: Moe Perry on 11-15-2024 Lymphocytes/100 WBC (Bld) 25.2 % 19-41 [facility] MCV (mean corpuscular volume ) determinationOrdered By: Moe Perry on 11-15-2024 MCV (RBC) [Entitic vol] 95.8 fL 81-99 [facility] MR/POSTOP.ANEon 11-15-2024 MR/POSTOP.ANE [facility] Medical Records Department [address] [place] [address] Anesthesia Postop Eval I 11/15/241713 MR#: [id number] Acct: [id number] Name: JEFFREY GOULD Rep #: [id number] : 1960 64 From: Cammy Fisher CRNA PCP: Dr. Kevin Vo MD Status:ADM IN Y Race: C Location: [place] [address] Anesthesia: Postop Eval I Current Vital Signs Temperature: 98.1 F Pulse Rate: 95 Blood Pressure: 115/61 Respiratory Rate: 20 Pulse Ox: 96 Oxygen Delivery Method: Room Air Assessment Airway patent: Yes Spontaneous unlabored respirations: Yes Mental status: Awake nausea: No Vomiting: No Anesthesia Complication: No Fluid Hydration Crystalloid volume administer (ml): 600 Total IV fluid infused: 600 Progress Note Anesthesia document: Postop Eval 1 completed: Yes 11/15/241714 Date Cammy Fisher DATA CODER OPERATOR Cosigner Signature: Date CC: Signed Normal [facility] [id number] 11-15-2024 [facility] Medical Records Department [address] [place] [address] Anesthesia Postop Eval II 11/15/241851 MR#: [id number] Acct: [id number] Name: JEFFREY GOULD Rep #: [id number] : 1960 64 From: Adam Bruner MD PCP: Dr. Kevin Vo MD Status:ADM IN Y Race: C Location: MS3 PC519-2 Anesthesia Postop Eval I Sum Postop Eval Completion status Anesthesia document: Postop Eval 1 completed: Yes Anesthesia Postop Eval I Summary Anesthesia Postop Eval I Summary: Anesthesia Postop Eval I: Assessment Summary Airway patent Yes 11/15/24 17:15 DATA CODER OPERATOR.[email or web address] Spontaneous unlabored Yes 11/15/24 17:15 DATA CODER OPERATOR.JSWI respirations Mental status Awake 11/15/24 17:15 DATA CODER OPERATOR.JSWI nausea No 11/15/24 17:15 DATA CODER OPERATOR.JSWI Vomiting No 11/15/24 17:15 DATA CODER OPERATOR.JSWI Anesthesia Postop Eval I: Fluid Summary Crystalloid volume administer 600 11/15/24 17:15 DATA CODER OPERATOR.JSWI (ml) Colloids volume administered ( ml) Blood Product volume administered (ml) Total IV fluid infused 600 11/15/24 17:15 DATA CODER OPERATOR.JSWI Anesthesia Postop Eval I: Summary Notes Anesthesia Complication No 11/15/24 17:15 DATA CODER OPERATOR.JSWI Anesthesia Complication Comment: Post-operative progress note Anesthesia: Postop Eval II Evaluation Mental status: Awake and Calm Pain Level: 2 nausea: No Vomiting: No Complications Anesthesia Complication: No 11/15/241852 Date Adam Bruner MD Cosigner Signature: Date CC: Signed Normal [facility] Mean corpuscular hemoglobin (MCH) determinationOrdered By: Moe Perry on 11-15-2024 MCH (RBC) [Entitic mass] 31.0 pg 27.0-32.0 [facility] Mean corpuscular hemoglobin concentration (MCHC) determinationOrdered By: Moe Perry on 11-15-2024 MCHC (RBC) [Mass/Vol] 32.4 g/dL 32-36 [facility] Comment on above: Delta: 30.8 on 11/13-1137 Mean platelet volume determi nationOrdered By: Moe Perry on 11-15-2024 Platelet mean volume (Bld) [Entitic vol] 8.4 fL 6.2-12.0 [facility] Monocyte percentageOrdered B y: Moe Perry on 11-15-2024 Monocytes/100 WBC (Bld) 7.7 % 0-10 [facility] Neutrophil percentageOrdered By: Moe Perry on 11-15-2024 Neutrophils/100 WBC (Bld) 63.0 % 47-70 [facility] Nucleated red blood cell per centageOrdered By: Moe Perry on 11-15-2024 Nucleated RBC/100 WBC (Bld) [Ratio] 0 % 0-5 [facility] Operative Reporton Operative Report [facility] Medical Records Department [address] [place] [address] Operative Report 11/15/24 1702 MR#: [id number] Acct: [id number] Name: JEFFREY GOULD Rep #: [id number] : 1960 64 From: Moe Perry DO PCP: Dr. Kevin Vo MD Status:ADM IN [facility] Report (Standard) Operative Information Date of Procedure: 11/15/24 Pre-Operative Diagnosis: 1. Right shoulder septic arthritis 2. Retained orthopedic hardware right shoulder Post-Operative Diagnosis: 1. Right shoulder septic arthritis 2. Retained orthopedic hardware right shoulder Surgery/Procedure Performed: 1. Right shoulder arthroscopic irrigation and debridement, synovectomy 2. Removal of hardware right shoulder operating room aide: Yes Marquetry Worker: Merlene Reed Tasks completed by junior administrative assistant: Opening closing and Retracting Additional assistant cook?: No Type of Anesthesia: General RN Documented Start/Stop Times: Operation Date: 11/15/24 15:50 Case Time Into Pre-Op 11/15/24 14:34 Anesthesia Start 11/15/24 15:55 Into Room 11/15/24 15:55 Procedure Start 11/15/24 16:21 Procedure Start Time: 16:21 Procedure Stop Time: 17:03 Select all DRAINS/GRAFTS/IMPLA NTS that apply: None Estimated Blood Loss: 10 cc Specimen collected: No Description of surgery: Patient was identified in the preoperative holding operating, medical record number, and date of . The operative extremity was marked. All questions were answered to the patient's satisfaction. At time of her procedure, patient was brought to the operative suite and positioned supine a standard operating table. General anesthesia was induced and endotracheal tube placed. The tube was secured and then the patient was positioned in the lateral decubitus position with the right side up. All bony prominences were well-padded. An axillary roll was placed. We spun the bed 40 degrees. Patient was held in place with a beanbag. Right upper extremity was then prepped and draped in normal, sterile orthopedic fashion. We performed a timeout confirming the side, site, and operation to be performed. No concerns were voiced and without to proceed with surgery. Patient has been receiving scheduled ceftriaxone and vancomycin and no additional doses were administered prior to incision. Right upper extremity was placed in arthroscopic traction throughout the arthroscopic portion the case approximately 30 minutes. Standard posterior portal was established 11 blade scalpel. Blunt tipped trocar was used to enter the glenohumeral joint. Joint was filled with normal saline with epinephrine. Cloudy serosanguineous type fluid was encountered in the joint. Extensive synovitis was noted. 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 Anterior interval portal was then established. Synovitis was debrided with shaver and cautery. Unstable cartilage was debrided with arthroscopic shaver. Type II failure of the rotator cuff was noted with intact tendon stump. There was communication into the subacromial space. Approximately 3 L of normal saline was washed through the joint space before moving to the subacromial space. I then reentered the shoulder in the subacromial space with blunt tipped trocar. Posterior lateral portal was established. No purulence was encountered. Limited debridement was performed to help visualize the rotator cuff tear. Type II failure was noted with intact repair and a new tear medial to our double row fixation. I proceeded with removal of the fiber tack anchors medially and the 2 swivel lock anchors laterally. No remaining suture material or anchor material was visualized. I assessed the mobility of the remaining tendon medially. Grasping the tissue with gentle traction demonstrated severely poor quality tissue with tearing noted with only light traction. 9 additional liters of normal saline were washed through the subacromial space. Hemostasis was excellent. I debrided the lateral skin incision in the area of suspected subcutaneous purulence. 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 The shoulder was then suctioned and instruments removed. Portal sites were closed in interrupted ienuqz-tq-wozfq fashion. Portal sites and intra-articular block was administered with 30 cc total half percent bupivacaine plain. Bulky sterile compression dressing was applied. Patient was safely explained the operative suite and awakened from anesthesia. She was transferred to her hospital bed and subsequently to PACU in stable condition. Simple sling was applied. Postoperative plan: Patient will be kept in the hospital overnight. Continue IV vancomycin and ceftriaxone per ID. Final sensitivities are pending as initial office cultures are yielding Staphylococcus aureus. We w (more content not included)... Normal [facility] Platelet countOrdered By: Yelena Perry on 11-15-2024 Platelets (Bld) [#/Vol] 466 10*3/uL High 150-450 [facility] Potassium measurementOrdered By: Moe Perry on 11-15-2024 Potassium [Moles/Vol] 3.6 mmol/L 3.5-5.1 [facility] RBC Auto (Bld) [#/Vol]Ordere d By: Moe Perry on 11-15-2024 RBC (Bld) [#/Vol] 3.06 10*6/uL Low 4.2-5.4 [facility] Serum anion gap measurementO rdered By: Moe Perry on 11-15-2024 Anion gap [Moles/Vol] 6 mmol/L 5-15 [facility] Serum globulin measurementOr dered By: Moe Perry on 11-15-2024 Globulin (S) [Mass/Vol] 3.7 g/dL 2.2-4.2 [facility] Serum or plasma alanine campbell otransferase (ALT) measurementOrdered By: Moe Perry on 11-15-2024 ALT [Catalytic activity/Vol] 14 U/L - [facility] Serum or plasma albumin lida urement (mass/volume)Ordered By: Moe Perry on 11-15-2024 Albumin [Mass/Vol] 2.2 g/dL Low 3.2-5.0 [facility] Serum or plasma alkaline comfort sphatase measurementOrdered By: Moe Perry on 11-15-2024 ALP [Catalytic activity/Vol] 96 U/L 45-117 [facility] Serum or plasma calcium lida urement (mass/volume)Ordered By: Moe Perry on 11-15-2024 Calcium [Mass/Vol] 8.8 mg/dL 8.5-10.1 [facility] Serum or plasma creatinine m easurement (mass/volume)Ordered By: Moe Perry on 11-15-2024 Creatinine [Mass/Vol] 0.69 mg/dL 0.55-1.02 [facility] Comment on above: The validity of the calculated GFR & GFRAA in patients over 70 years has not been determined. Clinical correlation is essential. Serum or plasma urea nitroge n measurement (mass/volume)Ordered By: Moe Perry on 11-15-2024 Urea nitrogen [Mass/Vol] 12 mg/dL 7-18 [facility] Sodium levelOrdered By: Kel Perry on 11-15-2024 Sodium [Moles/Vol] 142 mmol/L 136-145 [facility] Total proteinOrdered By: Raimundo Perry on 11-15-2024 Protein [Mass/Vol] 5.9 g/dL Low 6.4-8.2 [facility] White blood cell (WBC) count Ordered By: Moe Perry on 11-15-2024 WBC (Bld) [#/Vol] 4.9 10*3/uL 4.4-11.0 [facility] Gram Stainon 11-14-2024 GS UNK UNK Centrifuged Specimen? Culture performed on centrifuged specimen Gram Stain 4+ White Blood Cells 3+ Red Blood Cells 2+ Gram positive cocci Normal [facility] Comment on above: Performed By: #### M 100.2000, L101.9900, M100.4001, L100.0100, L501.6710, M100.2900 ####[facility] [address] [place], [address] Absolute neutrophil countOrd ered By: Moe Perry on 11-13-2024 Neutrophils (Bld) [#/Vol] 6.2 10*3/uL 2.0-7.7 [facility] Bacteria identified Anaer cx Nom (Unsp spec)Ordered By: Moe Perry on 11-13-2024 Anaerobic Culture No anaerobic bacteria isolated. [facility] Basophil percentageOrdered B y: Moe Perry on 11-13-2024 Basophils/100 WBC (Bld) 0.4 % 0-1 [facility] Body fluid cultureOrdered By : Moe Perry on 11-13-2024 Body Fluid Culture Staphylococcus aureus Abnormal [facility] C-reactive protein measureme nt by high sensitivity methodOrdered By: Moe Perry on 11-13-2024 C-Reactive Protein Extended Range 89.20 mg/L High 0.0-3.0 [facility] Comment on above: C-Reactive Protein ( CRP) provides useful information for thediagnosis, therapy and monitoring of inflammatory processesand associated diseases. For the evaluation of Relative Riskfor Cardiovascular Disease, a High Sensitivity CRP (HSCRP)should be ordered. CBC W/Diff, Automatedon 11-03 Absolute Lymph 1.31 X10 3/uL Normal 0.83-4.51 [facility] Comment on above: Performed By: #### M 100.1999, L101.9900, M100.4001, L100.0100, L501.6710, M100.2900 ####[facility] [address] [place], [address] Absolute Neut 6.2 X10 3/uL Normal 2.0-7.7 [facility] Comment on above: Performed By: #### M 100.2000, L101.9900, M100.4001, L100.0100, L501.6710, M100.2900 ####[facility] [address] [place], [address] Basophils/100 WBC (Bld) 0.4 % Normal 0-1 [facility] Comment on above: Performed By: #### M 100.1999, L101.9900, M100.4001, L100.0100, L501.6710, M100.2900 ####[facility] [address] [place], [address] Eosinophils/100 WBC (Bld) 1.7 % Normal 0-5 [facility] Comment on above: Performed By: #### , L101.9900, M100.4001, L100.0100, L501.6710, M100.2900 ####[facility] [address] [place], [address] Erythrocyte distribution width (RBC) [Ratio] 13.4 % Normal 11.6-14.6 [facility] Comment on above: Performed By: #### , L101.9900, M100.4001, L100.0100, L501.6710, M100.2900 ####[facility] [address] [place], [address] Hematocrit (Bld) [Volume fraction] 35.4 % Low 37-47 [facility] Comment on above: Performed By: #### M , L101.9900, M100.4001, L100.0100, L501.6710, M100.2900 ####[facility] [address] [place], [address] Hemoglobin (Bld) [Mass/Vol] 10.9 g/dL Low 12.0-15.0 [facility] Comment on above: Performed By: #### M , L101.9900, M100.4001, L100.0100, L501.6710, M100.2900 ####[facility] [address] [place], [address] IG% 0.700 Normal 0.0-0.9 [facility] Comment on above: Result Comment: IG% - Immature Granulocytes (promyelocytes, myelocytes and metamyelocytes) > 1% indicates that a LEFT SHIFT is Present. Performed By: #### M 100.1999, L101.9900, M100.4001, L100.0100, L501.6710, M100.2900 ####[facility] [address] [place], [address] Lymphocytes/100 WBC (Bld) 16.1 % Low 19-41 [facility] Comment on above: Performed By: #### M 100.1999, L101.9900, M100.4001, L100.0100, L501.6710, M100.2900 ####[facility] [address] [place], [address] MCH (RBC) [Entitic mass] 30.0 pg Normal 27.0-32.0 [facility] Comment on above: Performed By: #### M , L101.9900, M100.4001, L100.0100, L501.6710, M100.2900 ####[facility] [address] [place], [address] MCHC (RBC) [Mass/Vol] 30.8 g/dL Low 32-36 [facility] Comment on above: Performed By: #### M 100, L101.9900, M100.4001, L100.0100, L501.6710, M100.2900 ####[facility] [address] [place], [address] MCV (RBC) [Entitic vol] 97.5 fL Normal 81-99 [facility] Comment on above: Performed By: #### M 100.1999, L101.9900, M100.4001, L100.0100, L501.6710, M100.2900 ####[facility] [address] [place], [address] Monocytes/100 WBC (Bld) 5.4 % Normal 0-10 [facility] Comment on above: Performed By: #### M , L101.9900, M100.4001, L100.0100, L501.6710, M100.2900 ####[facility] [address] [place], [address] Neutrophils/100 WBC (Bld) 75.7 % High 47-70 [facility] Comment on above: Performed By: #### M , L101.9900, M100.4001, L100.0100, L501.6710, M100.2900 ####[facility] [address] [place], [address] Nucleated RBC (Bld) [#/Vol] 0 10*3/uL Normal 0-5 [facility] Comment on above: Performed By: #### M , L101.9900, M100.4001, L100.0100, L501.6710, M100.2900 ####[facility] [address] [place], [address] Platelet mean volume (Bld) [Entitic vol] 8.4 fL Normal 6.2-12.0 [facility] Comment on above: Performed By: #### M , L101.9900, M100.4001, L100.0100, L501.6710, M100.2900 ####[facility] [address] [place], [address] Platelets (Bld) [#/Vol] 606 10*3/uL High 150-450 [facility] Comment on above: Performed By: #### M , L101.9900, M100.4001, L100.0100, L501.6710, M100.2900 ####[facility] [address] [place], [address] RBC (Bld) [#/Vol] 3.63 10*6/uL Low 4.2-5.4 [facility] Comment on above: Performed By: #### M 100.1999, L101.9900, M100.4001, L100.0100, L501.6710, M100.2900 ####[facility] [address] [place], [address] RDW SD 48.4 fl High 35.1-43.9 [facility] Comment on above: Performed By: #### M , L101.9900, M100.4001, L100.0100, L501.6710, M100.2900 ####[facility] [address] [place], [address] WBC (Bld) [#/Vol] 8.2 10*3/uL Normal 4.4-11.0 [facility] Comment on above: Performed By: #### M , L101.9900, M100.4001, L100.0100, L501.6710, M100.2900 ####[facility] [address] [place], [address] CRPon 11-13-2024 C-REACTIVE PROT 89.20 mg/L High 0.0-3.0 [facility] Comment on above: Result Comment: C-Re active Protein (CRP) provides useful information for the diagnosis, therapy and monitoring of inflammatory processes and associated diseases. For the evaluation of Relative Risk for Cardiovascular Disease, a High Sensitivity CRP (HSCRP) should be ordered. Performed By: #### M , L101.9900, M100.4001, L100.0100, L501.6710, M100.2900 ####[facility] [address] [place], [address] Eosinophil percentageOrdered By: Moe Perry on 11-13-2024 Eosinophils/100 WBC (Bld) 1.7 % 0-5 [facility] Erythrocyte Sed Rateon 11-13 SED RATE 25 mm/hr Normal 0-30 [facility] Comment on above: Performed By: #### M 100.2000, L101.9900, M100.4001, L100.0100, L501.6710, M100.2900 ####[facility] [address] [place], [address] Erythrocyte distribution wid th (RBC) [Ratio]Ordered By: Moe Perry on 11-13-2024 Erythrocyte distribution width (RBC) [Entitic vol] 48.4 fL High 35.1-43.9 [facility] Erythrocyte distribution wid th ratioOrdered By: Moe Perry on 11-13-2024 Erythrocyte distribution width (RBC) [Ratio] 13.4 % 11.6-14.6 [facility] Erythrocyte sedimentation ra teOrdered By: Moe Perry on 11-13-2024 ESR (Bld) [Velocity] 25 mm/h 0-30 [facility] Gram stainOrdered By: Candy Perry on 11-13-2024 Microscopic observation Gram stain Nom (Unsp spec) [facility] Hematocrit Auto (Bld) [Volum e fraction]Ordered By: Moe Perry on 11-13-2024 Hematocrit (Bld) [Volume fraction] 35.4 % Low 37-47 [facility] Hemoglobin measurementOrdere d By: Moe Perry on 11-13-2024 Hemoglobin (Bld) [Mass/Vol] 10.9 g/dL Low 12.0-15.0 [facility] Immature granulocytes/100 WB C Auto (Bld)Ordered By: Moe Perry on 11-13-2024 Immature granulocytes/100 WBC (Bld) 0.700 % 0.0-0.9 [facility] Comment on above: IG% - Immature Granu locytes (promyelocytes, myelocytes and metamyelocytes) > 1% indicates that a LEFT SHIFT is Present. Lymphocytes Auto (Unsp spec) [#/Vol]Ordered By: Moe Perry on 11-13-2024 Lymphocytes (Bld) [#/Vol] 1.31 10*3/uL 0.83-4.5 1 [facility] Lymphocytes/100 WBC Auto (Un sp spec)Ordered By: Moe Perry on 11-13-2024 Lymphocytes/100 WBC (Bld) 16.1 % Low 19-41 [facility] MCV (mean corpuscular volume ) determinationOrdered By: Moe Perry on 11-13-2024 MCV (RBC) [Entitic vol] 97.5 fL 81-99 [facility] Mean corpuscular hemoglobin (MCH) determinationOrdered By: Moe Perry on 11-13-2024 MCH (RBC) [Entitic mass] 30.0 pg 27.0-32.0 [facility] Mean corpuscular hemoglobin concentration (MCHC) determinationOrdered By: Moe Perry on 11-13-2024 MCHC (RBC) [Mass/Vol] 30.8 g/dL Low 32-36 [facility] Mean platelet volume determi nationOrdered By: Moe Perry on 11-13-2024 Platelet mean volume (Bld) [Entitic vol] 8.4 fL 6.2-12.0 [facility] Monocyte percentageOrdered B y: Moe Perry on 11-13-2024 Monocytes/100 WBC (Bld) 5.4 % 0-10 [facility] Neutrophil percentageOrdered By: Moe Perry on 11-13-2024 Neutrophils/100 WBC (Bld) 75.7 % High 47-70 [facility] Nucleated red blood cell per centageOrdered By: Moe Perry on 11-13-2024 Nucleated RBC/100 WBC (Bld) [Ratio] 0 % 0-5 [facility] Platelet countOrdered By: Yelena Perry on 11-13-2024 Platelets (Bld) [#/Vol] 606 10*3/uL High 150-450 [facility] RBC Auto (Bld) [#/Vol]Ordere d By: Moe Perry on 11-13-2024 RBC (Bld) [#/Vol] 3.63 10*6/uL Low 4.2-5.4 [facility] White blood cell (WBC) count Ordered By: Moe Perry on 11-13-2024 WBC (Bld) [#/Vol] 8.2 10*3/uL 4.4-11.0 [facility] Basic Metabolic Profile (BMP )on 10-11-2024 BUN/CRE 17.7 RATIO Normal 10-20 [facility] Comment on above: Order Comment: Order Date: 10/08/24 Order Info: 0667 - BMP Performed By: #### L 500.2500 #### [facility] [address] [place], [address] CA,Total 9.3 mg/dL Normal 8.5-10.1 [facility] Comment on above: Order Comment: Order Date: 10/08/24 Order Info: 666-10 - BMP Performed By: #### L 500.2500 #### [facility] [address] [place], [address] Chloride [Moles/Vol] 108 mmol/L High 98-107 [facility] Comment on above: Order Comment: Order Date: 10/08/24 Order Info: 666-10 - BMP Performed By: #### L 500.2500 #### [facility] [address] [place], [address] CO2 [Moles/Vol] 27.0 mmol/L Normal 21.0-32.0 [facility] Comment on above: Order Comment: Order Date: 10/08/24 Order Info: 06 - BMP Performed By: #### L 500.2500 #### [facility] [address] [place], [address] Creatinine [Mass/Vol] 0.85 mg/dL Normal 0.55-1.02 [facility] Comment on above: Order Comment: Order Date: 10/08/24 Order Info: 06 - BMP Result Comment: The validity of the calculated GFR GFRAA in patients over 70 years has not been determined. Clinical correlation is essential. Performed By: #### L 500.2500 #### [facility] [address] [place], [address] EST GFR - AA 87 mL/min Normal >60 [facility] Comment on above: Order Comment: Order Date: 10/08/24 Order Info: 0667-1 - BMP Result Comment: Afri can Estonian GFR Calc Performed By: #### L 500.2500 #### [facility] [address] [place], [address] GAP 5 Normal 5-15 [facility] Comment on above: Order Comment: Order Date: 10/08/24 Order Info: 0667- - BMP Performed By: #### L 500.2500 #### [facility] [address] [place], [address] GFR/1.73 sq M.predicted among non-blacks MDRD (S/P/Bld) [Vol rate/Area] 72 mL/min/{1.73_m2} Normal >60 [facility] Comment on above: Order Comment: Order Date: 10/08/24 Order Info: 0667- - BMP Result Comment: Non- GFR Calc Performed By: #### L 500.2500 #### [facility] [address] [place], [address] Glucose [Mass/Vol] 93 mg/dL Normal 74-106 [facility] Comment on above: Order Comment: Order Date: 10/08/24 Order Info: 0667-1 - BMP Performed By: #### L 500.2500 #### [facility] [address] [place], [address] Potassium [Moles/Vol] 3.4 mmol/L Low 3.5-5.1 [facility] Comment on above: Order Comment: Order Date: 10/08/24 Order Info: 0667- - BMP Performed By: #### L 500.2500 #### [facility] [address] [place], [place], [id number] ([address] Sodium [Moles/Vol] 140 mmol/L Normal 136-145 [facility] Comment on above: Order Comment: Order Date: 10/08/24 Order Info: 0667-1 - BMP Performed By: #### L 500.2500 #### [facility] [address] [place], [place], [address] Urea nitrogen [Mass/Vol] 15 mg/dL Normal 7-18 [facility] Comment on above: Order Comment: Order Date: 10/08/24 Order Info: 0667-1 - BMP Performed By: #### L 500.2500 #### [facility] [address] [place], [address] Blood urea nitrogen (BUN)/cr eatinine ratioOrdered By: Kevin Vo on 10-11-2024 Urea nitrogen/Creatinine [Mass ratio] 17.7 mg/mg 10-20 [facility] Carbon dioxide measurementOr dered By: Kevin Vo on 10-11-2024 CO2 [Moles/Vol] 27.0 mmol/L 21.0-32.0 [facility] Chloride measurementOrdered By: Kevin oV on 10-11-2024 Chloride [Moles/Vol] 108 mmol/L High 98-107 [facility] Estimated glomerular filtrat ion rate (GFR) AmericanOrdered By: Kevin Vo on 10-11-2024 Estimated GFR (MDRD) Amer 87 mL/min >60 [facility] Comment on above: GFR Calc Glomerular filtration rate ( GFR) estimationOrdered By: Kevin Vo on 10-11-2024 Estimated GFR (MDRD) Non-Af Amer 72 mL/min >60 [facility] Comment on above: Non- GFR Calc Glucose measurementOrdered B y: Kevin Vo on 10-11-2024 Glucose [Mass/Vol] 93 mg/dL 74-106 [facility] Potassium measurementOrdered By: Kevin Vo on 10-11-2024 Potassium [Moles/Vol] 3.4 mmol/L Low 3.5-5.1 [facility] Serum anion gap measurementO rdered By: Kevin Vo on 10-11-2024 Anion gap [Moles/Vol] 5 mmol/L 5-15 [facility] Serum or plasma calcium lida urement (mass/volume)Ordered By: Kevin Vo on 10-11-2024 Calcium [Mass/Vol] 9.3 mg/dL 8.5-10.1 [facility] Serum or plasma creatinine m easurement (mass/volume)Ordered By: Kevin Vo on 10-11-2024 Creatinine [Mass/Vol] 0.85 mg/dL 0.55-1.02 [facility] Comment on above: The validity of the calculated GFR & GFRAA in patients over 70 years has not been determined. Clinical correlation is essential. Serum or plasma urea nitroge n measurement (mass/volume)Ordered By: Kevin Vo on 10-11-2024 Urea nitrogen [Mass/Vol] 15 mg/dL 7-18 [facility] Sodium levelOrdered By: Kevin Vo on 10-11-2024 Sodium [Moles/Vol] 140 mmol/L 136-145 [facility] Basic Metabolic Profile (BMP )on 09-21-2024 BUN/CRE 15.9 RATIO Normal - [facility] Comment on above: Order Comment: Order Date: 09/06/24 Order Info: 0667-1 - BMP Performed By: #### L 500.2500 #### [facility] [address] [place], [address] CA,Total 9.5 mg/dL Normal 8.5-10.1 [facility] Comment on above: Order Comment: Order Date: 09/06/24 Order Info: 0667-1 - BMP Performed By: #### L 500.2500 #### [facility] [address] [place], [address] Chloride [Moles/Vol] 108 mmol/L High 98-107 [facility] Comment on above: Order Comment: Order Date: 09/06/24 Order Info: 0667-1 - BMP Performed By: #### L 500.2500 #### [facility] [address] [place], [address] CO2 [Moles/Vol] 27.0 mmol/L Normal 21.0-32.0 [facility] Comment on above: Order Comment: Order Date: 09/06/24 Order Info: 666-10 - BMP Performed By: #### L 500.2500 #### [facility] [address] [place], [place], [address] Creatinine [Mass/Vol] 0.94 mg/dL Normal 0.55-1.02 [facility] Comment on above: Order Comment: Order Date: 09/06/24 Order Info: 666-10 - BMP Result Comment: The validity of the calculated GFR GFRAA in patients over 70 years has not been determined. Clinical correlation is essential. Performed By: #### L 500.2500 #### [facility] [address] [place], [place], [address] EST GFR - AA 78 mL/min Normal >60 [facility] Comment on above: Order Comment: Order Date: 09/06/24 Order Info: 666-10 - BMP Result Comment: Afri can Estonian GFR Calc Performed By: #### L 500.2500 #### [facility] [address] [place], [address] GAP 7 Normal 5-15 [facility] Comment on above: Order Comment: Order Date: 09/06/24 Order Info: 666-10 - BMP Performed By: #### L 500.2500 #### [facility] [address] [place], [address] GFR/1.73 sq M.predicted among non-blacks MDRD (S/P/Bld) [Vol rate/Area] 64 mL/min/{1.73_m2} Normal >60 [facility] Comment on above: Order Comment: Order Date: 09/06/24 Order Info: 0667- - BMP Result Comment: Non- GFR Calc Performed By: #### L 500.2500 #### [facility] [address] [place], [address] Glucose [Mass/Vol] 69 mg/dL Low 74-106 [facility] Comment on above: Order Comment: Order Date: 09/06/24 Order Info: 06 - BMP Performed By: #### L 500.2500 #### [facility] [address] [place], [place], [address] [phone] Potassium [Moles/Vol] 3.4 mmol/L Low 3.5-5.1 [facility] Comment on above: Order Comment: Order Date: 09/06/24 Order Info: 0667-1 - BMP Performed By: #### L 500.2500 #### [facility] [address] [place], [place], [address] ([address] Sodium [Moles/Vol] 141 mmol/L Normal 136-145 [facility] Comment on above: Order Comment: Order Date: 09/06/24 Order Info: 0667- - BMP Performed By: #### L 500.2500 #### [facility] [address] [place], [place], [address] [phone] Urea nitrogen [Mass/Vol] 15 mg/dL Normal 7-18 [facility] Comment on above: Order Comment: Order Date: 09/06/24 Order Info: 0667- - BMP Performed By: #### L 500.2500 #### [facility] [address] [place], [place], [address] [phone] Blood urea nitrogen (BUN)/cr eatinine ratioOrdered By: Kevin Vo on 09-21-2024 Urea nitrogen/Creatinine [Mass ratio] 15.9 mg/mg 07-22 [facility] Carbon dioxide measurementOr dered By: Kevin Vo on 09-21-2024 CO2 [Moles/Vol] 27.0 mmol/L 21.0-32.0 [facility] Chloride measurementOrdered By: Kevin Vo on 09-21-2024 Chloride [Moles/Vol] 108 mmol/L High 98-107 [facility] Estimated glomerular filtrat ion rate (GFR) AmericanOrdered By: Kevin Vo on 09-21-2024 Estimated GFR (MDRD) Amer 78 mL/min >60 [facility] Comment on above: GFR Calc Glomerular filtration rate ( GFR) estimationOrdered By: Kevin Vo on 09-21-2024 Estimated GFR (MDRD) Non-Af Amer 64 mL/min >60 [facility] Comment on above: Non- GFR Calc Glucose measurementOrdered B y: Kevin Vo on 09-21-2024 Glucose [Mass/Vol] 69 mg/dL Low 74-106 [facility] Potassium measurementOrdered By: Kevin Vo on 09-21-2024 Potassium [Moles/Vol] 3.4 mmol/L Low 3.5-5.1 [facility] Serum anion gap measurementO rdered By: Kevin Vo on 09-21-2024 Anion gap [Moles/Vol] 7 mmol/L 5-15 [facility] Serum or plasma calcium lida urement (mass/volume)Ordered By: Kevin Vo on 09-21-2024 Calcium [Mass/Vol] 9.5 mg/dL 8.5-10.1 [facility] Serum or plasma creatinine m easurement (mass/volume)Ordered By: Kevin Vo on 09-21-2024 Creatinine [Mass/Vol] 0.94 mg/dL 0.55-1.02 [facility] Comment on above: The validity of the calculated GFR & GFRAA in patients over 70 years has not been determined. Clinical correlation is essential. Serum or plasma urea nitroge n measurement (mass/volume)Ordered By: Kevin Vo on 09-21-2024 Urea nitrogen [Mass/Vol] 15 mg/dL - [facility] Sodium levelOrdered By: Kevin Vo on 09-21-2024 Sodium [Moles/Vol] 141 mmol/L 136-145 [facility] Basic Metabolic Profile (BMP )on 09-06-2024 BUN/CRE 14.9 RATIO Normal 07-22 [facility] Comment on above: Performed By: #### L 500.4100, L500.2500 #### [facility] [address] [place], [address] CA,Total 9.3 mg/dL Normal 8.5-10.1 [facility] Comment on above: Performed By: #### L 500.4100, L500.2500 #### [facility] [address] [place], [address] Chloride [Moles/Vol] 109 mmol/L High 98-107 [facility] Comment on above: Performed By: #### L 500.4100, L500.2500 #### [facility] [address] [place], [address] CO2 [Moles/Vol] 28.0 mmol/L Normal 21.0-32.0 [facility] Comment on above: Performed By: #### L 500.4100, L500.2500 #### [facility] [address] [place], [address] Creatinine [Mass/Vol] 0.87 mg/dL Normal 0.55-1.02 [facility] Comment on above: Result Comment: The validity of the calculated GFR GFRAA in patients over 70 years has not been determined. Clinical correlation is essential. Performed By: #### L 500.4100, L500.2500 #### [facility] [address] [place], [address] EST GFR - AA 85 mL/min Normal >60 [facility] Comment on above: Result Comment: Afri can Estonian GFR Calc Performed By: #### L 500.4100, L500.2500 #### [facility] [address] [place], [address] GAP 6 Normal 5-15 [facility] Comment on above: Performed By: #### L 500.4100, L500.2500 #### [facility] [address] [place], [address] GFR/1.73 sq M.predicted among non-blacks MDRD (S/P/Bld) [Vol rate/Area] 70 mL/min/{1.73_m2} Normal >60 [facility] Comment on above: Result Comment: Non- GFR Calc Performed By: #### L 500.4100, L500.2500 #### [facility] [address] [place], [address] Glucose [Mass/Vol] 92 mg/dL Normal 74-106 [facility] Comment on above: Performed By: #### L 500.4100, L500.2500 #### [facility] [address] [place], [address] Potassium [Moles/Vol] 3.1 mmol/L Low 3.5-5.1 [facility] Comment on above: Performed By: #### L 500.4100, L500.2500 #### [facility] [address] [place], [address] Sodium [Moles/Vol] 142 mmol/L Normal 136-145 [facility] Comment on above: Performed By: #### L 500.4100, L500.2500 #### [facility] [address] [place], [address] Urea nitrogen [Mass/Vol] 13 mg/dL Normal 7-18 [facility] Comment on above: Performed By: #### L 500.4100, L500.2500 #### [facility] [address] [place], [address] Lipid Profileon 09-06-2024 Cholesterol [Mass/Vol] 134 mg/dL Normal 200 [facility] Comment on above: Result Comment: <200 mg/dL Desirable 200-240 mg/dL Borderline >240 mg/dL High Risk Performed By: #### L 500.4100, L500.2500 #### [facility] [address] [place], [address] Cholesterol in HDL [Mass/Vol] 70 mg/dL Normal [facility] Comment on above: Result Comment: The drugs N-Acetylcysteine and Metamizole may falsely depress this assay. Reference Range HDL <40 mg/dL Low HDL Cholesterol HDL >or= 60 mg/dL High HDL Cholesterol Performed By: #### L 500.4100, L500.2500 #### [facility] [address] [place], [address] Cholesterol in LDL [Mass/Vol] 47 mg/dL Normal 0-130 [facility] Comment on above: Performed By: #### L 500.4100, L500.2500 #### [facility] [address] [place], [address] Cholesterol in VLDL [Mass/Vol] 17 mg/dL Normal 5-40 [facility] Comment on above: Performed By: #### L 500.4100, L500.2500 #### [facility] [address] [place], [address] Triglyceride [Mass/Vol] 84 mg/dL Normal [facility] Comment on above: Result Comment: The drugs N-Acetylcysteine and Metamizole may falsely depress this assay. Serum Triglycerides Reference Interval Normal <150 mg/dL Borderline high 150 - 199 mg/dL High 200 - 499 mg/dL Very High > or = 500 mg/dL Performed By: #### L 500.4100, L500.2500 #### [facility] [address] [place], [address] Basic Metabolic Profile (BMP )on 06-27-2024 BUN/CRE 12.8 RATIO Normal 10-20 [facility] Comment on above: Performed By: #### L 100.0100, L500.2500 ####[facility] [address] [place], [address] CA,Total 9.6 mg/dL Normal 8.5-10.1 [facility] Comment on above: Performed By: #### L 100.0100, L500.2500 ####[facility] [address] [place], [address] Chloride [Moles/Vol] 109 mmol/L High 98-107 [facility] Comment on above: Performed By: #### L 100.0100, L500.2500 ####[facility] [address] [place], [address] CO2 [Moles/Vol] 28.0 mmol/L Normal 21.0-32.0 [facility] Comment on above: Performed By: #### L 100.0100, L500.2500 ####[facility] [address] [place], [address] Creatinine [Mass/Vol] 0.86 mg/dL Normal 0.55-1.02 [facility] Comment on above: Result Comment: The validity of the calculated GFR GFRAA in patients over 70 years has not been determined. Clinical correlation is essential. Performed By: #### L 100.0100, L500.2500 ####[facility] [address] [place], [address] EST GFR - AA 86 mL/min Normal >60 [facility] Comment on above: Result Comment: Afri can Estonian GFR Calc Performed By: #### L 100.0100, L500.2500 ####[facility] [address] [place], [address] GAP 4 Low 5-15 [facility] Comment on above: Performed By: #### L 100.0100, L500.2500 ####[facility] [address] [place], [address] GFR/1.73 sq M.predicted among non-blacks MDRD (S/P/Bld) [Vol rate/Area] 71 mL/min/{1.73_m2} Normal >60 [facility] Comment on above: Result Comment: Non- GFR Calc Performed By: #### L 100.0100, L500.2500 ####[facility] [address] [place], [address] Glucose [Mass/Vol] 99 mg/dL Normal 74-106 [facility] Comment on above: Performed By: #### L 100.0100, L500.2500 ####[facility] [address] [place], [address] Potassium [Moles/Vol] 3.8 mmol/L Normal 3.5-5.1 [facility] Comment on above: Performed By: #### L 100.0100, L500.2500 ####[facility] [address] [place], [address] Sodium [Moles/Vol] 142 mmol/L Normal 136-145 [facility] Comment on above: Performed By: #### L 100.0100, L500.2500 ####[facility] [address] [place], [address] Urea nitrogen [Mass/Vol] 11 mg/dL Normal 7-18 [facility] Comment on above: Performed By: #### L 100.0100, L500.2500 ####[facility] [address] [place], [address] CBC W/Diff, Automatedon 2 -2023 Absolute Lymph 1.52 X10 3/uL Normal 0.83-4.51 [facility] Comment on above: Performed By: #### L 100.0100, L500.2500 ####[facility] [address] [place], [address] Absolute Neut 2.9 X10 3/uL Normal 2.0-7.7 [facility] Comment on above: Performed By: #### L 100.0100, L500.2500 ####[facility] [address] [place], [address] Basophils/100 WBC (Bld) 0.4 % Normal 0-1 [facility] Comment on above: Performed By: #### L 100.0100, L500.2500 ####[facility] [address] [place], [address] Eosinophils/100 WBC (Bld) 3.2 % Normal 0-5 [facility] Comment on above: Performed By: #### L 100.0100, L500.2500 ####[facility] [address] [place], [address] Erythrocyte distribution width (RBC) [Ratio] 12.1 % Normal 11.6-14.6 [facility] Comment on above: Performed By: #### L 100.0100, L500.2500 ####[facility] [address] [place], [address] Hematocrit (Bld) [Volume fraction] 38.2 % Normal 37-47 [facility] Comment on above: Performed By: #### L 100.0100, L500.2500 ####[facility] [address] [place], [address] Hemoglobin (Bld) [Mass/Vol] 13.2 g/dL Normal 12.0-15.0 [facility] Comment on above: Performed By: #### L 100.0100, L500.2500 ####[facility] [address] [place], [address] IG% 0.200 Normal 0.0-0.9 [facility] Comment on above: Result Comment: IG% - Immature Granulocytes (promyelocytes, myelocytes and metamyelocytes) > 1% indicates that a LEFT SHIFT is Present. Performed By: #### L 100.0100, L500.2500 ####[facility] [address] [place], [address] Lymphocytes/100 WBC (Bld) 30.3 % Normal 19-41 [facility] Comment on above: Performed By: #### L 100.0100, L500.2500 ####[facility] [address] [place], [address] MCH (RBC) [Entitic mass] 32.2 pg High 27.0-32.0 [facility] Comment on above: Performed By: #### L 100.0100, L500.2500 ####[facility] [address] [place], [address] MCHC (RBC) [Mass/Vol] 34.6 g/dL Normal 32-36 [facility] Comment on above: Performed By: #### L 100.0100, L500.2500 ####[facility] [address] [place], [address] MCV (RBC) [Entitic vol] 93.2 fL Normal 81-99 [facility] Comment on above: Performed By: #### L 100.0100, L500.2500 ####[facility] [address] [place], [address] Monocytes/100 WBC (Bld) 7.4 % Normal 0-10 [facility] Comment on above: Performed By: #### L 100.0100, L500.2500 ####[facility] [address] [place], [address] Neutrophils/100 WBC (Bld) 58.5 % Normal 47-70 [facility] Comment on above: Performed By: #### L 100.0100, L500.2500 ####[facility] [address] [place], [address] Nucleated RBC (Bld) [#/Vol] 0 10*3/uL Normal 0-5 [facility] Comment on above: Performed By: #### L 100.0100, L500.2500 ####[facility] [address] [place], [address] Platelet mean volume (Bld) [Entitic vol] 9.3 fL Normal 6.2-12.0 [facility] Comment on above: Performed By: #### L 100.0100, L500.2500 ####[facility] [address] [place], [address] Platelets (Bld) [#/Vol] 205 10*3/uL Normal 150-450 [facility] Comment on above: Performed By: #### L 100.0100, L500.2500 ####[facility] [address] [place], [address] RBC (Bld) [#/Vol] 4.10 10*6/uL Low 4.2-5.4 [facility] Comment on above: Performed By: #### L 100.0100, L500.2500 ####[facility] [address] [place], [address] RDW SD 41.7 fl Normal 35.1-43.9 [facility] Comment on above: Performed By: #### L 100.0100, L500.2500 ####[facility] [address] [place], [address] WBC (Bld) [#/Vol] 5.0 10*3/uL Normal 4.4-11.0 [facility] Comment on above: Performed By: #### L 100.0100, L500.2500 ####[facility] [address] [place], [address] CNOVon 09-28-2023 CNOV Office Visit (UCTR) ---- JEFFREY GOULD ([id number]) 1960 F Date Time Provider Department 09/28/23 8:45 AM MIREYA BRIDGES [facility] During your visit today, we recorded the following information about you: Temperature Pulse Respiration Blood pressure 97.8 degrees 100/minute 21/minute 108/64 Weight 71.8 kg Mireya Bridges APRN.CNP 09/28/2023 9:14 AM Signed Subjective HPI Nontoxic-appearing female presents urgent care chief complaint laryngitis. Duration of symptoms 7 days. Associated symptoms nasal congestion laryngitis. Initially felt like she had a low-grade fever and was kind to achy. The symptoms have improved. Laryngitis is improving slightly. Presents today due to new onset eye drainage and matting. This has been present for 2 days. Has not used any OTC medications. Sick contact possible work. Denies any eye pain visual changes. States eye was matted shut when she awoke this morning. Has some redness in her eye. Some drainage. Denies any eye trauma flashlight floaters. Denies any fever body aches chills productive cough chest pain shortness of breath pleuritic pain hemoptysis nausea vomiting abdominal pain change in bowel or bladder habits. Past medical history prescription medication use and allergies reviewed. .Patient presents with: Eye Problem: Left eye redness, swelling, drainage x 2 days, laryngitis x 7 days History reviewed. No pertinent past medical history. History reviewed. No pertinent surgical history. ALLERGIES Patient has no known allergies. MEDICATIONS MELOXICAM ORAL Take by mouth. rosuvastatin calcium (ROSUVASTATIN ORAL) Take by mouth. NEURONTIN 300 MG CAP Take one(1) tablet four (4) times daily. patient unsure of dosage History reviewed. No pertinent family history. Social History Tobacco Use Smoking status: Former Types: Cigarettes Quit date: 08/05/1985 Years since quittin.1 Passive exposure: Past Smokeless tobacco: Never BP 108/64 Pulse 100 Temp 36.6 ?C (97.8 ?F) Resp 21 Wt 71.8 kg (158 lb 6.4 oz) SpO2 98% Hr 80 Review of Systems Constitutional: Negative for chills, fever and malaise/fatigue. HENT: Positive for congestion and sore throat. Negative for ear discharge, ear pain and sinus pain. Eyes: Positive for discharge and redness. Negative for blurred vision, double vision, photophobia and pain. Respiratory: Negative for cough, hemoptysis, sputum production, shortness of breath, wheezing and stridor. Cardiovascular: Negative for chest pain. Gastrointestinal: Negative for abdominal pain, diarrhea, nausea and vomiting. Musculoskeletal: Negative for myalgias. Skin: Negative for itching and rash. Neurological: Negative for dizziness and headaches. Objective Physical Exam Constitutional: General: She is not in acute distress. Appearance: She is not diaphoretic. HENT: Head: Normocephalic. Jaw: No trismus, tenderness, swelling or pain on movement. Right Ear: Tympanic membrane, ear canal and external ear normal. Left Ear: Tympanic membrane, ear canal and external ear normal. Nose: Congestion present. Mouth/Throat: Mouth: Mucous membranes are moist. Pharynx: Oropharynx is clear. Uvula midline. No pharyngeal swelling, oropharyngeal exudate, posterior oropharyngeal erythema or uvula swelling. Eyes: General: Lids are normal. Lids are everted, no foreign bodies appreciated. Vision grossly intact. Right eye: No foreign body, discharge or hordeolum. Left eye: Discharge present.No foreign body or hordeolum. Conjunctiva/sclera: Right eye: Right conjunctiva is injected. No chemosis, exudate or hemorrhage. Left eye: Left conjunctiva is injected. Exudate present. No chemosis or hemorrhage. Pupils: Pupils are equal, round, and reactive to light. Comments: Mild surrounding erythema left eye. Limbus clear. Visual acuity unchanged. Cardiovascular: Rate and Rhythm: Normal rate and regular rhythm. Heart sounds: Normal heart sounds. Pulmonary: Effort: Pulmonary effort is normal. No tachypnea, accessory muscle usage or respiratory distress. Breath sounds: Normal breath sounds. No stridor. No wheezing, rhonchi or rales. Abdominal: General: There is no distension. Palpations: Abdomen is soft. Tenderness: There is no abdominal tenderness. There is no guarding or rebound. Musculoskeletal: Cervical back: Normal range of motion and neck supple. No edema, erythema, rigidity or tenderness. No pain with movement. Normal range of motion. Lymphadenopathy: Cervical: No cervical adenopathy. Skin: General: Skin is warm and dry. Neurological: Mental Status: She is alert and oriented to person, place, and time. ASSESSMENT/PLAN: 1. Bacterial conjunctivitis - ICD9: 372.39, 041.9, ICD10: H10.9 Diagnosed with bacterial conjunctivitis. Placed on Polytrim. Additionally with the surrounding erythema will be plac (more content not included)... Normal [facility] Basophil percentageOrdered B y: Kevin Vo on 09-19-2023 Chloride [Moles/Vol] 110 mmol/L 98-107 [facility] Cholesterol [Mass/Vol] 128 mg/dL <200 [facility] Comment on above: <200 mg/dL Desirable 200-240 mg/dL Borderline >240 mg/dL High Risk Glucose [Mass/Vol] 95 mg/dL 74-106 [facility] Potassium [Moles/Vol] 3.6 mmol/L 3.5-5.1 [facility] Sodium [Moles/Vol] 143 mmol/L 136-145 [facility] Triglyceride [Mass/Vol] 70 mg/dL <199 [facility] Comment on above: The drugs N-Acetylcy steine and Metamizole may falsely depress this assay.Serum Triglycerides Reference Interval Normal <150 mg/dL Borderline high 150 - 199 mg/dL High 200 - 499 mg/dL Very High > or = 500 mg/dL Laboratory - Chemistry and C hemistry - challengeOrdered By: Kevin Vo on 09-19-2023 CO2 [Moles/Vol] 27.0 mmol/L 21.0-32.0 [facility] Urea nitrogen/Creatinine [Mass ratio] 15.5 mg/mg 10-20 [facility] No Panel InformationOrdered By: Kevin Vo on 09-19-2023 Estimated GFR (MDRD) Amer 82 mL/min >60 [facility] Comment on above: GFR Calc Estimated GFR (MDRD) Non-Af Amer 68 mL/min >60 [facility] Comment on above: Non- GFR Calc Serum or plasma calcium lida urement (mass/volume)Ordered By: Kevin Vo on 09-19-2023 Calcium [Mass/Vol] 9.0 mg/dL 8.5-10.1 [facility] Serum or plasma cholesterol in HDL measurement (mass/volume)Ordered By: Kevin Vo on 09-19-2023 Cholesterol in HDL [Mass/Vol] 67 mg/dL >40 [facility] Comment on above: The drugs N-Acetylcy steine and Metamizole may falsely depress this assay. Reference Range HDL <40 mg/dL Low HDL Cholesterol HDL >or= 60 mg/dL High HDL Cholesterol Serum or plasma cholesterol in VLDL measurement (mass/volume)Ordered By: Kevin Vo on 09-19-2023 Cholesterol in VLDL [Mass/Vol] 14 mg/dL 5-40 [facility] Serum or plasma creatinine m easurement (mass/volume)Ordered By: Kevin Vo on 09-19-2023 Creatinine [Mass/Vol] 0.90 mg/dL 0.55-1.02 [facility] Comment on above: The validity of the calculated GFR & GFRAA in patients over 70 years has not been determined. Clinical correlation is essential. Serum or plasma low density lipoprotein (LDL) cholesterol measurement (mass/volume)Ordered By: Kevin Vo on 09-19-2023 Cholesterol in LDL [Mass/Vol] 47 mg/dL 0-130 [facility] Serum or plasma urea nitroge n measurement (mass/volume)Ordered By: Kevin Vo on 09-19-2023 Urea nitrogen [Mass/Vol] 14 mg/dL 7-18 [facility] Thin prep Papanicolaou smear with manual screeningOrdered By: Kevin Vo on 09-19-2023 Thin prep Papanicolaou smear with manual screening 6 5-15 [facility] Throat specimen bacteria mary ntification by cultureOrdered By: Dr. Vo on 12-19-2022 Bacteria identified Cx Nom (Throat) streptococcus isolated. [facility] Basophil percentageOrdered B y: Dr. Vo on 12-17-2022 Chloride [Moles/Vol] 108 mmol/L 98-107 [facility] Cholesterol [Mass/Vol] 220 mg/dL <200 [facility] Comment on above: <200 mg/dL Desirable 200-240 mg/dL Borderline >240 mg/dL High Risk Glucose [Mass/Vol] 100 mg/dL 74-106 [facility] Comment on above: Fasting Glucose resu lt from 100 to 125 mg/dL suggests IMPAIRED HOMEOSTASIS per A.D.A. criteria. Potassium [Moles/Vol] 4.0 mmol/L 3.5-5.1 [facility] Sodium [Moles/Vol] 142 mmol/L 136-145 [facility] Triglyceride [Mass/Vol] 72 mg/dL <199 [facility] Comment on above: The drugs N-Acetylcy steine and Metamizole may falsely depress this assay.Serum Triglycerides Reference Interval Normal <150 mg/dL Borderline high 150 - 199 mg/dL High 200 - 499 mg/dL Very High > or = 500 mg/dL Laboratory - Chemistry and C hemistry - challengeOrdered By: Dr. Vo on 12-17-2022 CO2 [Moles/Vol] 25.0 mmol/L 21.0-32.0 [facility] Urea nitrogen/Creatinine [Mass ratio] 13.7 mg/mg 10-20 [facility] No Panel InformationOrdered By: Dr. Vo on 12-17-2022 Estimated GFR (MDRD) Amer 85 mL/min >60 [facility] Comment on above: GFR Calc Estimated GFR (MDRD) Non-Af Amer 70 mL/min >60 [facility] Comment on above: Non- GFR Calc Vitamin D 25-Hydroxy 26.6 ng/mL [facility] Comment on above: Vitamin D 25(OH) Sta tus Range Deficiency <20 ng/mL (50nmol/L) Insufficiency 20 - 30 ng/mL (50 - 75 nmol/L) Sufficiency 30 - 100 ng/mL (75 - 250 nmol/L) Toxicity >100 ng/mL (>250 nmol/L) Serum or plasma calcium lida urement (mass/volume)Ordered By: Dr. Vo on 12-17-2022 Calcium [Mass/Vol] 9.7 mg/dL 8.5-10.1 [facility] Serum or plasma cholesterol in HDL measurement (mass/volume)Ordered By: Dr. Vo on 12-17-2022 Cholesterol in HDL [Mass/Vol] 59 mg/dL >40 [facility] Comment on above: The drugs N-Acetylcy steine and Metamizole may falsely depress this assay. Reference Range HDL <40 mg/dL Low HDL Cholesterol HDL >or= 60 mg/dL High HDL Cholesterol Serum or plasma cholesterol in VLDL measurement (mass/volume)Ordered By: Dr. Vo on 12-17-2022 Cholesterol in VLDL [Mass/Vol] 14 mg/dL 5-40 [facility] Serum or plasma creatinine m easurement (mass/volume)Ordered By: Dr. Vo on 12-17-2022 Creatinine [Mass/Vol] 0.88 mg/dL 0.55-1.02 [facility] Comment on above: The validity of the calculated GFR & GFRAA in patients over 70 years has not been determined. Clinical correlation is essential. Serum or plasma low density lipoprotein (LDL) cholesterol measurement (mass/volume)Ordered By: Dr. Vo on 12-17-2022 Cholesterol in LDL [Mass/Vol] 147 mg/dL 0-130 [facility] Serum or plasma urea nitroge n measurement (mass/volume)Ordered By: Dr. Vo on 12-17-2022 Urea nitrogen [Mass/Vol] 12 mg/dL 7-18 [facility] Thin prep Papanicolaou smear with manual screeningOrdered By: Dr. Vo on 12-17-2022 Thin prep Papanicolaou smear with manual screening 9 5-15 [facility] Vital Signs Date Time Vital Sign Value Performing Clinician Faci lity 11-29-2024 09:05-0500 Body height 162.[address] Kevin Vo MD Work Phone: [facility] 11-29-2024 09:05-0500 Body mass index (BMI) [Ratio] 26.2 kg/m2 Dr. Kevin Vo MD Work Phone: [facility] 11-29-2024 09:05-0500 Body temperature 96.6 [degF] Dr. Kevin Vo MD Work Phone: [facility] 11-29-2024 09:05-0500 Body weight 69.[address] Kevin Vo MD Work Phone: [facility] 11-29-2024 09:05-0500 Diastolic blood pressure 76 mm[Hg] Dr. Kevin Vo MD Work Phone: [facility] 11-29-2024 09:05-0500 Heart rate 87 /min Dr. Kevin Vo MD Work Phone: [facility] 11-29-2024 09:05-0500 Respiratory rate 16 /min Dr. Kevin Vo MD Work Phone: [facility] 11-29-2024 09:05-0500 SaO2% (BldA) [Mass fraction] 99 % Dr. Kevin Vo MD Work Phone: [facility] 11-29-2024 09:05-0500 Systolic blood pressure 118 mm[Hg] Dr. Kevin Vo MD Work Phone: [facility] 11-19-2024 13:16-0500 Body temperature 97.8 [degF] Dr. Kevin Vo MD Work Phone: [facility] 11-19-2024 13:16-0500 Diastolic blood pressure 61 mm[Hg] Dr. Kevin Vo MD Work Phone: [facility] 11-19-2024 13:16-0500 Heart rate 102 /min Dr. Kevin Vo MD Work Phone: [facility] 11-19-2024 13:16-0500 Respiratory rate 18 /min Dr. Kevin Vo MD Work Phone: [facility] 11-19-2024 13:16-0500 SaO2% (BldA) [Mass fraction] 99 % Dr. Kevin Vo MD Work Phone: [facility] 11-19-2024 13:16-0500 Systolic blood pressure 101 mm[Hg] Dr. Kevin Vo MD Work Phone: [facility] 11-15-2024 18:30-0500 Body mass index (BMI) [Ratio] 26.2 kg/m2 Dr. Kevin Vo MD Work Phone: [facility] 11-15-2024 18:30-0500 Body weight 69.[address] Kevin Vo MD Work Phone: [facility] Encounters Encounter Date Encounter Type Care Provider Facility Start: 01-08-2025 End: 01-08-[address] Kevin Vo MD Work Phone: [facility] Work Phone: Start: 01-08-2025 End: 01-08-[address] [facility] Start: 01-08-2025 End: 01-08-2025 ambulatory Moe Perry Facility:[facility] Start: 11-29-2024 End: 11-29-[address] Dewayne Armenta MD -[facility] Out Work Phone: Start: 11-29-2024 End: 11-29-2024 ambulatory Dewayne Lopezer Facility:[facility] Start: 11-27-2024 End: 11-27-[address] Dewayne Armenta MD -[facility] Work Phone: Start: 11-27-2024 End: 11-27-2024 ambulatory [place] Geovany Facility:[facility] Start: 11-20-2024 End: 11-20-[address] Dewayne Armenta MD -[facility] Out Work Phone: Start: 11-20-2024 End: 11-20-2024 ambulatory [place] Geovany Facility:[facility] Start: 11-20-2024 ambulatory NONE PHYSICIAN Facility :[facility] Start: 11-19-2024 Non-patient / Non-visit Dr. Jose Antonio Saez MD -[facility] Work Phone: Start: 11-15-2024 End: 11-15-2024 ambulatory Moe Perry [place] [place] Start: 11-15-2024 End: 11-15-2024 Non-patient / Non-visit Dr. Shila Flores MD -[facility] Work Phone: Start: 11-14-2024 [facility] Start: 11-14-2024 End: 11-19-2024 Evaluation and management of inpatient Dr. Moe Perry DO -Medical Surgical 3 Work Phone: Start: 11-13-2024 End: 11-13-[address] Moe Perry DO -Laboratory Work Phone: Start: 11-13-2024 End: 11-13-2024 ambulatory Moe Perry Facility:[facility] Start: 10-11-2024 End: 10-11-[address] Kevin Vo MD -Laboratory, [place] Work Phone: Start: 10-11-2024 End: 10-11-2024 ambulatory Kevin Vo Facility:[facility] Start: 10-05-2024 Encounter for genera l adult medical examination without abnormal findings Kevin Vo [facility] Start: 09-21-2024 End: 09-21-[address] Kevin Vo MD -Laboratory, [place] Work Phone: Start: 09-21-2024 End: 09-21-2024 ambulatory Kevin Vo Facility:[facility] Start: 09-06-2024 End: 09-06-2024 ambulatory Kevin Vo Facility:[facility] Start: 06-27-2024 End: 06-27-2024 ambulatory Kevin Vo Facility:[facility] Start: 09-28-2023 End: 09-28-2023 ambulatory Facility:[facility] Start: 09-19-2023 End: 09-19-2023 ambulatory [facility] Work Phone: Start: 09-19-2023 End: 09-19-2023 Patient encounter procedure [facility]patient [facility] Work Phone: Start: 12-17-2022 End: 12-17-2022 ambulatory [facility] Work Phone: Start: 12-17-2022 End: 12-17-2022 Patient encounter procedure [facility]-Laboratory, [place] [facility] Date Procedure Procedure Detail Performing Clinician Start: 11-15-2024 Repair of musculoten dinous cuff of shoulder Dr. Kevin Vo MD Work Phone: Start: 11-15-[address] Kevin Vo MD Work Phone: Start: 11-13-[address] Kevin Vo MD Work Phone: Start: 11-13-2024 Gram stain microscopy D erin Vo MD Work Phone: Start: 11-13-2024 Microbial culture, body fluid Dr. Kevin Vo MD Work Phone: Start: 09-19-2023 Screening mammography Bacteria identification test Bacteria identification test Plan of Treatment Date Care Activity Detail Author Start: 11-19-2024 Patient discharge [facility] Start: 11-16-2024 Referral to service [facility] Start: 11-15-2024 Following clinical p athway protocol [facility] Start: 11-15-2024 Application of ice c ollar, cap or bag [facility] Start: 11-15-2024 Assessment of risk o f venous thromboembolism [facility] Start: 11-15-2024 Catheterization of vein [facility] Start: 11-15-2024 Deep breathing and c oughing exercises [facility] Start: 11-15-2024 Following clinical p athway protocol [facility] Start: 11-15-2024 Introduction of urinary catheter [facility] Start: 11-15-2024 Patient education [facility] Start: 11-15-2024 Taking patient vital signs [facility] Start: 11-15-2024 Vital signs measurements [facility] Start: 11-15-2024 [facility] Start: 11-15-2024 Medication education [facility] Start: 11-14-2024 Application of inter mittent pneumatic compression device [facility] Start: 11-14-2024 Admission procedure [facility] Start: 11-14-2024 Recommendation to co ntinue with treatment [facility] Start: 11-14-2024 Consultation [facility] Start: 11-14-2024 Following clinical p athway protocol [facility] Start: 11-14-2024 Assessment of risk o f venous thromboembolism [facility] Start: 11-14-2024 Insertion of cathete r into peripheral vein [facility] Start: 11-14-2024 Providing care accor ding to standard [facility] Start: 11-14-2024 [facility] Start: 11-14-2024 Measuring intake and output [facility] Start: 11-14-2024 Patient referral to dietitian [facility] Patient referral [facility] Work Phone: Payers Date Payer Category Payer Self-pay [id number] 2016 Private Health Insurance [id number] 1960 Unknown [id number] 2.16.8 [id number] Unknown [id number] 2.16.8 [id number] Unknown [id number] 2.16.8 [id number] Unknown [id number] 2.16.8 [id number] Unknown [id number] 2.16.8 [id number] Unknown [id number] 2.16.8 [id number] Unknown [id number] 2.16.8 [id number] Unknown [id number] 2.16.8 [id number] Unknown [id number] 2.16.8 [id number] Unknown [id number] 2.16.8 [id number] Unknown [id number] 2.16.8 [id number] Unknown [id number] 2.16.8 [id number] Unknown [id number] 2.16.8 [id number] Social History Date Type Detail Facility Tobacco smoking status NHIS Unknown if ever smoked [facility] Work Phone: Start: 1960 Sex Assigned At Female [facility] Start: 11-16-2024 Tobacco smoking status NHIS Ex-smoker (finding) [facility] Start: 01-10-2025 Sex Female (finding) [facility] NEGATED: Highlighted row Not [facility] Goals Date Patient Goal Desired Activity /State Functional Status Date Assessment Result Facility 11-19-2024 Functional status Chair [facility] Work Phone: Mental Status Date Assessment Result Facility 11-29-2024 Cognitive function Voice/Name [facility] Work Phone: 11-18-2024 Cognitive function Voice/Name [facility] Work Phone: Discharge summary note 11-16-2024 Note Date & Type Note Facility 11-16-2024 Note [facility] Medical Records Department [address] [place] [address] Discharge Summary 11/16/24 1445 MR#: [id number] Acct: [id number] Name: JEFFREY GOULD Rep #: [id number] : 1960 64 From: Moe Perry DO PCP: Dr. Kevin Vo MD Status:ADM IN [place] [facility] [id number] Providers Date of Admission: 11/14/24 Primary Care Physician: Dr. Kevin Vo MD Consultations 11/14/24 19:58 Consult: Infectious Disease Routine Consulting Provider: Dewayne Armenta Reason for Consult: Right shoulder septic arthritis EMERGENT Consult: No MD Notified: Yes Date Notified: 11/14/24 Time Notified: 20:01 Method of Notification: Text Reason For Visit: SEPTIC ARTHRITIS RIGHT SHOULDER Diagnosis Discharge Diagnosis (1) Septic arthritis of shoulder, right: Status: Acute Code(s): M00.9 - Pyogenic arthritis, unspecified Qualifiers: Septic arthritis organism: staphylococcal Qualified Code(s): M00.011 - Staphylococcal arthritis, right shoulder Plan: POD# 1 s/p right shoulder arthroscopic I D, removal of hardware -Patient seen and examined. She is doing well today. We discussed her condition in terms of the infection as well as the unfortunate tearing pattern of her rotator cuff which I suspect is irreparable. I explained there is surgical options going forward but weclear the infection. May utilize the sling as needed for comfort. - Pain control -doing well with Tylenol and ibuprofen - DVT PPX -Multimodal aspirin 81 mg twice daily, SCDs, CLAU hose, early mobilization - Case management - D/C planning aspiration growing MSSA. Blood cultures are negative. Dr. Armenta recommending 12 days Ancef with weekly labs, PICC line. Discharge pending PICC line placement and home health care coordination. Medications at Discharge Home Medications cyclobenzaprine 5 mg tablet 5 mg PO QHS 11/14/24 gabapentin 300 mg capsule 300 mg PO BID pain 11/14/24 oxaprozin 600 mg tablet 1,200 mg PO DAILY 11/14/24 rosuvastatin 5 mg tablet 5 mg PO DAILY 11/14/24 acetaminophen 500 mg tablet 1,000 mg (2 x 500 mg) PO Q8 7 days #42 tabs 11/16/24 aspirin 81 mg chewable tablet 81 mg PO BID 14 days #28 tabs 11/16/24 cefazolin 2 gram intravenous solution 2 g IV Q8H 12 days 11/16/24 Hospital Course Operations arthroscopy, shoulder (Right shoulder arthroscopy with irrigation and debridement with removal of hardware 11/15/2024) Summary of Care Provided Minutes Spent on Discharge: 15 Hospital Course: Patient underwent right shoulder arthroscopic irrigation and debridement with removal of hardware 11/15/24. She tolerated the procedure well. She was started on IV antibiotics the day prior which was her day of admission, 11/14/24. She was seen by infectious disease who recommended 2 weeks of IV Ancef via PICC line. PICC line was placed on 11/16/24 however coordination of home health care and delivery of antibiotics was delayed requiring her to stay in the hospital for IV antibiotic therapy until today 11/19/24. She and her son were educated regarding IV infusion administration. She was able to be discharged to home in stable condition on postoperative day #4. Physical Exam Narrative General - A Ox3, NAD. VSS/AF. Right upper Extremity - SILT 5/5 in radial, ulnar, musculocutaneous, axillary, and median nerve distributions. Radial, ulnar pulses 2+. Compartments soft and compressible. BCR in finger tips. Incisional dressing C/D/I. Weight / BMI Weight Weight: 152 lb 12.485 oz Body Mass Index (BMI) 26.2 ABG / Lab / Microbiology Data 11/15/24 05:07 11/15/24 05:07 Microbiology: Microbiology 11/15/24 08:29 Blood Culture (Wb) - Anticubital Right Blood Culture - Preliminary No growth in 48 hours. 11/15/24 08:33 Blood Culture (Wb) - Left Hand Blood Culture - Preliminary No growth in 48 hours. D/C Instructions Discharge Diet: No restrictions May shower in (days): 3 Ice area for (Minutes): 20 Weight Bearing Status: Weight bearing as tolerated Call your doctor if your incision/area has: Sudden Increased Bleeding, Increased Redness and Foul Smelling Discharge Call your doctor if you observe: Fever of 101 or Higher, Shortness of breath and Chest pain Cleanse incision/area with: Soap Water DC O2, CPAP, BIPAP Needs Home O2 Discharge instructions: No Please Follow Up With: Moe Perry DO When: 2 weeks Meaningful Use Info Meaningful Use Meaningful Use Diagnoses (Choose all that apply): None applicable Ischemic Stroke Statin Dosing Therapy Reference: STATIN DOSE THERAPY REFERENCE: * Patients > 75 years receive moderate or high dose statin therapy. * Patients 75 years or YOUNGER should receive HIGH intensity statin dose unless contraindicated. You will be required to document reason for non-treatment if statin daily dose does not meet guidelines. (more content not included)... [facility] Evaluation note 11-14-2024 Note Date & Type Note Facility 11-14-2024 Evaluation note Diagnosis Onset Date Resolution Septic arthritis of shoulder, right acute November 14, 025 8:13pm [facility] Work Phone: Clinical Note 11-14-2024 Note Date & Type Note Facility 11-14-2024 Note [facility] Medical Records Department [address] [place] [id number] History Physical Exam 11/14/242003 MR#: [id number] Acct: [id number] Name: JEFFREY GOULD Rep #: [id number] : 1960 64 From: Moe Perry DO PCP: Dr. Kevin Vo MD Status:ADM MALACHI [place] [facility] [id number] HPI - General General Date of Admission: 11/14/24 Chief Complaint: Right shoulder pain HPI Narrative JEFFREY GOULD, is a 64 F who presented approximately 4 months s/p right shoulder rotator cuff repair and biceps tenodesis after injury 2 weeks ago. Concern was retear was noted and MRI obtained. MRI demonstrated retear and complex effusion. Patient notes low grade fever for 10 days or so. Was put on Z pack by PCP despite no respiratory symptoms. She continued with low grade fever. 4 days ago, patient noted redness and increase in swelling along her lateral shoulder. I saw patient in office yesterday and performed a subacromial aspiration. Turbid fluid was obtained and sent for Gs/Cx. Cx prelim was s. aureus. Patient was direct admistted tonight for IV abx with plan for I D, removal of hardware right shoulder tomorrow. Denies N/V/SOB/CP. 12 pt ROS obtained, negative unless otherwise noted above. She has profound weakness and pain with attempted overhead motion. PFSH Home Medications ???Medication ???Instructions ???Recorded ???Last Taken ???Type cyclobenzaprine 5 mg tablet 5 mg PO QHS 11/14/24 Unknown Histo ry doxycycline hyclate 100 mg tablet 100 mg PO BID 11/14/24 Unknown Hi story gabapentin 300 mg capsule 300 mg PO BID 11/14/24 Unknown His tory oxaprozin 600 mg tablet 1,200 mg PO DAILY 11/14/24 Unknown History rosuvastatin 5 mg tablet 5 mg PO DAILY 11/14/24 Unknown His tory Allergy/AdvReac Type Severity Reaction Status Date / Time tramadol Allergy Swelling Verified 11/14/24 20:00 Physical Exam Const alert, oriented x3 and no apparent distress General Appearance: cooperative HEENT normocephalic and head/scalp atraumatic Eyes PERRL Neck no lymphadenopathy Resp normal respiratory effort and normal air movement Cardio regular rate and regular rhythm GI soft to palpation, non-tender and non-distended Extremity normal capillary refill, no clubbing, cyanosis or edema and no calf tenderness Skin Skin Narrative: Lateral right shoulder erythema, fluctuance Neuro CN's II-XII intact bilaterally Results Lab / Micro Data Attestation: I reviewed the patient's lab results. Assessment Plan Assessment/Plan (1) Septic arthritis of shoulder, right: QUALIFIERS: Septic arthritis organism: staphylococcal Qualified Code(s): M00.011 - Staphylococcal arthritis, right shoulder PLAN: - IV ancef scheduled - Follow prelim cx - Sx tomorrow for I D, Removal of hardware. Reviewed R/B/A with patient. Informed consent obtained - ID consult - possible PICC - NPO after midnight - mIVF - DVT ppx - SCDs, TEDS 11/14/242012 Cosigner Signature (if applicable): CC: Dr. Moe Perry DO; Dr. Kevin Vo MD Signed [facility] Progress note 09-28-2023 Note Date & Type Note Facility 09-28-2023 Note HNO ID: [id number] Author: Mireya Bridges APRN.KRISSY Service: ? Author Type: Nurse Practitioner Type: Progress Notes Filed: 09/28/2023 9:14 AM Note Text: Subjective HPI Nontoxic-appearing female presents urgent care chief complaint laryngitis. Duration of symptoms 7 days. Associated symptoms nasal congestion laryngitis. Initially felt like she had a low-grade fever and was kind to achy. The symptoms have improved. Laryngitis is improving slightly. Presents today due to new onset eye drainage and matting. This has been present for 2 days. Has not used any OTC medications. Sick contact possible work. Denies any eye pain visual changes. States eye was matted shut when she awoke this morning. Has some redness in her eye. Some drainage. Denies any eye trauma flashlight floaters. Denies any fever body aches chills productive cough chest pain shortness of breath pleuritic pain hemoptysis nausea vomiting abdominal pain change in bowel or bladder habits. Past medical history prescription medication use and allergies reviewed. .Patient presents with: Eye Problem: Left eye redness, swelling, drainage x 2 days, laryngitis x 7 days History reviewed. No pertinent past medical history. History reviewed. No pertinent surgical history. ALLERGIES Patient has no known allergies. MEDICATIONS MELOXICAM ORAL Take by mouth. rosuvastatin calcium (ROSUVASTATIN ORAL) Take by mouth. NEURONTIN 300 MG CAP Take one(1) tablet four (4) times daily. patient unsure of dosage History reviewed. No pertinent family history. Social History Tobacco Use Smoking status: Former Types: Cigarettes Quit date: 08/05/1985 Years since quittin.1 Passive exposure: Past Smokeless tobacco: Never BP 108/64 Pulse 100 Temp 36.6 ?C (97.8 ?F) Resp 21 Wt 71.8 kg (158 lb 6.4 oz) SpO2 98% Hr 80 Review of Systems Constitutional: Negative for chills, fever and malaise/fatigue. HENT: Positive for congestion and sore throat. Negative for ear discharge, ear pain and sinus pain. Eyes: Positive for discharge and redness. Negative for blurred vision, double vision, photophobia and pain. Respiratory: Negative for cough, hemoptysis, sputum production, shortness of breath, wheezing and stridor. Cardiovascular: Negative for chest pain. Gastrointestinal: Negative for abdominal pain, diarrhea, nausea and vomiting. Musculoskeletal: Negative for myalgias. Skin: Negative for itching and rash. Neurological: Negative for dizziness and headaches. Objective Physical Exam Constitutional: General: She is not in acute distress. Appearance: She is not diaphoretic. HENT: Head: Normocephalic. Jaw: No trismus, tenderness, swelling or pain on movement. Right Ear: Tympanic membrane, ear canal and external ear normal. Left Ear: Tympanic membrane, ear canal and external ear normal. Nose: Congestion present. Mouth/Throat: Mouth: Mucous membranes are moist. Pharynx: Oropharynx is clear. Uvula midline. No pharyngeal swelling, oropharyngeal exudate, posterior oropharyngeal erythema or uvula swelling. Eyes: General: Lids are normal. Lids are everted, no foreign bodies appreciated. Vision grossly intact. Right eye: No foreign body, discharge or hordeolum. Left eye: Discharge present.No foreign body or hordeolum. Conjunctiva/sclera: Right eye: Right conjunctiva is injected. No chemosis, exudate or hemorrhage. Left eye: Left conjunctiva is injected. Exudate present. No chemosis or hemorrhage. Pupils: Pupils are equal, round, and reactive to light. Comments: Mild surrounding erythema left eye. Limbus clear. Visual acuity unchanged. Cardiovascular: Rate and Rhythm: Normal rate and regular rhythm. Heart sounds: Normal heart sounds. Pulmonary: Effort: Pulmonary effort is normal. No tachypnea, accessory muscle usage or respiratory distress. Breath sounds: Normal breath sounds. No stridor. No wheezing, rhonchi or rales. Abdominal: General: There is no distension. Palpations: Abdomen is soft. Tenderness: There is no abdominal tenderness. There is no guarding or rebound. Musculoskeletal: Cervical back: Normal range of motion and neck supple. No edema, erythema, rigidity or tenderness. No pain with movement. Normal range of motion. Lymphadenopathy: Cervical: No cervical adenopathy. Skin: General: Skin is warm and dry. Neurological: Mental Status: She is alert and oriented to person, place, and time. ASSESSMENT/PLAN: 1. Bacterial conjunctivitis - ICD9: 372.39, 041.9, ICD10: H10.9 Diagnosed with bacterial conjunctivitis. Placed on Polytrim. Additionally with the surrounding erythema will be placed on Augmentin. Red flags for prompt ophthalmology reevaluation discussed. Follow-up with ophthalmology 1 to 2 days reevaluation. Patient was educated on supportive therapies. Patient will follow up with primary care provider as needed. Patient was instructed to immediately (more content not included)... [facility] Evaluation note Note Date & Type Note Facility Evaluation note No assessment information availa ble [facility] Work Phone: Reason for referral (narrative) Note Date & Type Note Facility Reason for referral (narrative) No reason for referral information available [facility] Work Phone: Chief Complaint and Reason for Visit Chief Complaint SCREEN/ ADD LABS AT [facility] Chief Complaint Admit Date EORDER September 21, 2024 7:02am E-ORDER October 11, 2024 7: 03am SEPTIC ARTHRITIS RIGHT SHOULDER November 14, 2024 8:13pm PREOP November 15, 2024 11:16am SEPTIC ARTHRITIS RIGHT SHOULDER November 19, 2024 10:51am PICC draw/drsg change November 20 9:13am PICC draw/drsg change November 27 12:42pm DC PICC LINE November 29, 2024 8:52am Reason for Visit Admit Date Septic arthritis of shoulder, right Febr uary 2024 8:13pm Summary Purpose Family History No Family History Records FoundNo Family History Records FoundNo Family History Records Found Advance Directives No Advanced Directives Records Found Advance Directive Response Recorded Date/ Time Living Will No November 15 7:43pm Do you have a Healthcare Power of Floor Representative? No November 15, 2024 7:43pm Additional Source Comments Care Teams (unrecognized sec tion and content) Team Status: Active Member Role Status Dates Dr. Kevin oV MD Family Provider Active Dr. Kevin Vo MD Primary Care Provider Active Team Status: Inactive Member Role Status Dates Dr. Kevin Vo MD Primary Care Provi aniceto, Attending Provider, Referring Provider Active Team Status: Active Member Role Status Dates Dr. Kevin Vo MD Primary Care Provider Active Team Status: Inactive Member Role Status Dates Dr. Kevin Vo MD Primary Care Provider Active Start: September 21, 2024 End: September 21, 2024 Dr. Kevin Vo MD Attending Provider Active Start: September 21, 2024 End: September 21, 2024 Dr. Kevin Vo MD Referring Provider Active Start: September 21, 2024 End: September 21, 2024 Team Status: Inactive Member Role Status Dates Dr. Kevin Vo MD Primary Care Provider Active Start: October 11, 2024 End: October 11, 2024 Dr. Kevin Vo MD Attending Provider Active Start: October 11, 2024 End: October 11, 2024 Dr. Kevin Vo MD Referring Provider Active Start: October 11, 2024 End: October 11, 2024 Team Status: Inactive Member Role Status Dates Dr. Kevin Vo MD Primary Care Provider Active Start: November 13, 2024 End: November 13, 2024 Dr. Moe Perry DO Attending Provider Active Start: November 13, 2024 End: November 13, 2024 Dr. Moe Perry DO Referring Provider Active Start: November 13, 2024 End: November 13, 2024 Team Status: Inactive Member Role Status Dates Dr. Kevin Vo MD Primary Care Provider Active Start: November 14, 2024 End: November 19, 2024 Dr. Moe Perry DO Admit Provider Active Start: November 14, 2024 End: November 19, 2024 Dr. Moe Perry DO Attending Provider Active Start: November 14, 2024 End: November 19, 2024 Dr. Moe Perry DO Referring Provider Active Start: November 14, 2024 End: November 19, 2024 Dr. Dewayne Armenta MD Other Provider Active Start: November 14, 2024 End: November 19, 2024 Dr. Jose Antonio Saez MD Other Provider Active Sta rt: November 14, 2024 End: November 19, 2024 Team Status: Active Member Role Status Dates Dr. Kevin Vo MD Primary Care Provider Active Start: November 15, 2024 End: November 15, 2024 Dr. Shila Flores MD Attending Provider Activ e Start: November 15, 2024 End: November 15, 2024 Dr. Moe Perry DO Referring Provider Active Start: November 15, 2024 End: November 15, 2024 Team Status: Active Member Role Status Dates Dr. Kevin Vo MD Primary Care Provider Active Start: November 19, 2024 Dr. Moe Perry DO Admit Provider Active Start: November 19, 2024 Dr. Moe Perry DO Referring Provider Active Start: November 19, 2024 Dr. Moe Perry DO Other Provider Active Start: November 19, 2024 Dr. Dewayne Armenta MD Other Provider Active Start: November 19, 2024 Dr. Jose Antonio Saez MD Attending Provider Active Start: November 19, 2024 Dr. Jose Antonio Saez MD Other Provider Active Sta rt: November 19, 2024 Team Status: Inactive Member Role Status Dates Dr. Kevin Vo MD Primary Care Provider Active Start: November 20, 2024 End: November 20, 2024 Dr. Dewayne Armenta MD Attending Provider Active Start: November 20, 2024 End: November 20, 2024 Dr. Dewayne Armenta MD Referring Provider Active Start: November 20, 2024 End: November 20, 2024 Team Status: Inactive Member Role Status Dates Dr. Kevin Vo MD Primary Care Provider Active Start: November 27, 2024 End: November 27, 2024 Dr. Dewayne Armenta MD Attending Provider Active Start: November 27, 2024 End: November 27, 2024 Dr. Dewayne Armenta MD Referring Provider Active Start: November 27, 2024 End: November 27, 2024 Team Status: Inactive Member Role Status Dates Dr. Kevin Vo MD Primary Care Provider Active Start: November 29, 2024 End: November 29, 2024 Dr. Dewayne Armenta MD Attending Provider Active Start: November 29, 2024 End: November 29, 2024 Dr. Dewayne Armenta MD Referring Provider Active Start: November 29, 2024 End: November 29, 2024 Team Status: Inactive Member Role Status Dates Dr. Kevin Vo MD Primary Care Provider Active Start: January 08, 2025 End: January 08, 2025 Dr. Moe Perry DO Attending Provider Active Start: January 08, 2025 End: January 08, 2025 Dr. Moe Perry DO Referring Provider Active Start: January 08, 2025 End: January 08, 2025 Goals (unrecognized section and content) Goals may be documented in a n alternate sectionGoals may be documented in an alternate section INFORMATION SOURCE (unrecogn ized section and content) DATE CREATED AUTHOR 09/29/2023 [facility] DATE CREATED AUTHOR AUTHOR'S YESENIA ATION 11/21/2024 [facility] DATE CREATED AUTHOR AUTHOR'S ORGANIZ ATION 01/12/2025 [facility] FOR RECORDS PERTAINING TO PATIENTS WHO ARE OR HAVE BEEN ENROLLED IN A CHEMICAL DEPENDENCY/SUBSTANCEABUSE PROGRAM, SOME INFORMATION MAY BE OMITTED. This clinical summary was aggregated from multiple sources. Caution should be exercised in using it in the provision of clinical care. This summary normalizes information from multiple sources, and as a consequence, information in this document may materially change the coding, format and clinical context of patient data. In addition, data may be omitted in some cases. CLINICAL DECISIONS SHOULD BE BASED ON THE PRIMARY CLINICAL RECORDS. [employer] [facility]. provides no warranty or guarantee of the accuracy or completeness of information in this document.
[2025-09-11 10:43] LABS: AST(SGOT) 17 U/L (<=31); Alanine Aminotransfer ALT/SGPT 11 U/L (<=34); Albumin, Serum 4.3 g/dL (3.4-4.8); Alkaline Phosphatase 110 U/L (35-104); Anion Gap 11 (5-15); BUN 11 mg/dL (4-19); BUN/Creat Ratio 14.3 RATIO (10-20); Calcium,Total 9.7 mg/dL (7.6-11.0); Carbon Dioxide 24.5 mmol/L (21.0-32.0); Chloride 108 mmol/L (98-108); Cholesterol 147 mg/dL (<=200); Globulin 2.4 g/dL (2.2-4.2); Glucose 103 mg/dL (70-99); Low Density Lipoprotein Calc. 69 mg/dL; Potassium 3.7 mmol/L (3.3-5.1); Triglycerides 80 mg/dL; Very Low Density Lipoprotein 16 mg/dL (5-40); cholesterol:hdl ratio screen 2.36
== END | disposition home or self-care (01) ==
LOC: MTLAB 07:03
PROVIDERS: PCP Family Medicine; Referring Provider Family Medicine; Visit Provider Family Medicine
DX: Z00.00 Encounter for general adult medical examination without abnormal findings (principal)
CPT/HCPCS: 36415; 80053; 80061